=== PATIENT | male | born 1950 | race Caucasian/White ===

== ENCOUNTER 2018-01-16 13:22 | Outpatient (CLI) | payer MEDICARE | END 2018-01-16 13:23 | disposition home or self-care (01) | LOC: ULT 13:22 | PROVIDERS: ATTEND Family Medicine | DX: R06.01 Orthopnea (principal); I08.3 Combined rheumatic disorders of mitral, aortic and tricuspid valves | CPT/HCPCS: 93306 ==

== ENCOUNTER 2018-05-12 10:15 | Inpatient (IN) | payer MEDICARE ==
[~2018-05-12 10:15] MED LIST: Iopamidol-370 76% 500 ML 1 ML ONE
[2018-05-12] MEDS ORDERED: Furosemide 40 MG/4 ML VIAL ONE (10:30)
[2018-05-12 10:47] LABS: #Lymphocytes 0.4 thou/uL (1.20-3.40); #Monocytes 0.2 thou/uL (0.11-0.59); #Neutrophils 9.7 thou/uL (1.40-6.50); %Eosinophils 0.1 % (0.0-10.0); %Lymphocytes 3.4 % (21.0-51.0); %Monocytes 1.5 % (0.0-10.0); Hemoglobin 13.1 g/dL (14.0-18.0); Mean Corpuscular HGB CONC 32.6 g/dL (32.0-36.0); Mean Corpuscular Hemoglobin 27.8 pg (27.0-31.0); Mean Corpuscular Volume 85.5 fL (78.0-98.0); Platelet Count 260 thou/uL (130-400); RBC Distribution Width 13.3 % (11.5-14.5); White Blood Cell (WBC) Count 10.2 thou/uL (4.8-10.8)
[2018-05-12 11:09] LABS: ALT (SGPT) 31 U/L (8-55); AST (SGOT) 64 U/L (5-34); Albumin 4.1 g/dL (3.4-4.8); Alkaline Phosphatase 96 U/L (40-150); Anion Gap 11 mmol/L (10-20); BUN (Urea Nitrogen) 8 mg/dL (8.4-25.7); Bilirubin, Total 0.8 mg/dL (0.2-1.2); Calc. Creatinine Clearance 0 mL/min (70-130); Calcium 9.6 mg/dL (7.8-10.44); Carbon Dioxide 30 mmol/L (23-31); Chloride 79 mmol/L (98-107); Estimated GFR-MDRD Greater than 90; Globulin 3.4 g/dL (2.4-3.5); Glucose 125 mg/dL (80-115); Potassium 3.2 mmol/L (3.5-5.1); Protein, Total 7.5 g/dL (5.8-8.1)
[2018-05-12] MEDS ORDERED: Magnesium 2 GM/50 ML BAG (IN WATER) ONE (11:29)
--- NOTE | 2018-05-12 11:43 | CT ---
CTA CHEST WITH CONTRAST: Technique: Multiple contiguous axial images were obtained through the chest following pulmonary angio protocol. Multiplanar reconstruction and 3D post processing performed. Indications: Dyspnea. FINDINGS: Pulmonary arteries show adequate opacification. Motion artifact degrades the exam. There is no evidence of pulmonary embolus identified. There is cardiomegaly with vascular congestion. There is confluent infiltrate and/or atelectasis is b oth posterior lung bases. Images through the upper abdomen show several small calcified gallstones within the gallbladder lumen . IMPRESSION: 1. No evidence of pulmonary embolus. 2. Cardiomegaly with vascular congestion. Bibasilar confluent atelectasis and/or infiltrate. 3. Cholelithiasis is noted. POS: [facility]
[2018-05-12] MEDS ORDERED: Potassium Chloride 40 MEQ in Sodium Chloride 0.9% 250 ML 250 ML IVPB SCH (11:45)
--- NOTE | 2018-05-12 11:50 | RAD ---
EXAM: CHEST ONE VIEW PORTABLE: History: 67-year-old male with shortness of breath for several days. Feeling bad for one week. Comparison: 05-12-18 FINDINGS: There is cardiomegaly with probable small bilateral pleural effusions, poor inspiration, and some vas cular congestion. No significant change from 05-12-18 earlier study. IMPRESSION: Overall stable appearing cardiomegaly, poor inspiratory effort, bilateral small pleural effusions, bi lateral vascular congestion. Atherosclerosis of the aorta with ectasia. Depending upon concern, follo w up exam to include upright PA and lateral chest might be of benefit. POS: [facility]
[2018-05-12 11:53] LABS: Sodium 117 mmol/L (136-145)
[2018-05-12] MEDS ORDERED: Potassium Chloride 20 MEQ TAB ONE (13:18)
[2018-05-12] MEDS ORDERED: Dextrose 50% Abboject 50 ML SYRINGE SLOW IVP PRN (14:42)
[2018-05-12] MEDS ORDERED: Dextrose 5% in Water 1,000 ML IV PRN (14:42)
--- NOTE | 2018-05-12 14:53 | HP ---
CHIEF COMPLAINT: Shortness of breath. HISTORY OF PRESENT ILLNESS: The patient is a 67-year-old male, who presented today to the emergency room in [place] with complaints of shortness of breath. He had some workup done in [place] [facility], he was found to have hyponatremia and fluid overload with some signs of congestive heart failure. He was given IV Lasix and O2 and put on BiPAP and sent to the emergency room of [facility] in [place], where he was transitioned from BiPAP to nasal cannula to 4 L. Apparently, he had one time problem with breathing a few months ago, and his primary care physician, Dr. Hernandez from [place] sent here for echocardiogram done in this facility, but I could not find any evidence that this was done. PAST MEDICAL HISTORY: Positive for; 1. Diabetes. 2. Prostate cancer. PAST SURGICAL HISTORY: 1. Back surgery. 2. Left leg fracture and repair. MEDICATIONS: 1. Losartan/hydrochlorothiazide 100/25 once a day. 2. Amlodipine 10 mg once a day. 3. Pantoprazole 40 mg once a day. 4. Diclofenac 75 mg once a day. 5. Glimepiride 4 mg half tablet a day. 6. Simvastatin 80 mg at bedtime. 7. Citalopram 40 mg once a day. 8. Tamsulosin 0.4 mg two tablets at bedtime. FAMILY HISTORY: Mother had CHF and she at the age of 58, and father was 65 when he had massive heart attack. ALLERGIES: NONE. SOCIAL HISTORY: He does not have any history of cigarette smoking. He drinks alcohol beer occasionally. He does not use any illicit drugs. REVIEW OF SYSTEMS: Fourteen systems were reviewed and only symptoms mentioned in the HPI are positive and the rest is negative. He denies any chest pain. He has some cough. PHYSICAL EXAMINATION: VITAL SIGNS: Blood pressure is 131/79, pulse is 107, pulse oximetry is 98% on 4 L by nasal cannula, and respirations are 20. HEENT: His head is atraumatic and normocephalic. He is quite uncomfortable, sitting upright and changing position quite often, trying to find a better position. His eyes; pupils are responding to light properly. Conjunctivae are pinkish. Oral mucosa is moist. NECK: Supple. No lymphadenopathy. JVD 1+, similar bilaterally. LUNGS: Breath sounds diminished at both bases with crackles bilaterally. No wheezing. HEART: S1 and S2 are distant. No S3. No S4. ABDOMEN: Soft, obese, and nontender. There is a hernia in the midline in epigastric area, but it is not incarcerated. Bowel sounds are present. No organomegaly. EXTREMITIES: 2+ peripheral edema, similar bilaterally. He has an open wound on his great toe base with small drainage. NEUROLOGIC: He is alert and oriented x4. There are no any motor deficits. Cranial nerves are intact. LABORATORY DATA: Sodium of 119, potassium 3.5, chloride 78, BUN 7.4, and creatinine 0.7. Lactic acid less than 1.5. CK-MB 19.1 and troponin less than 0.010. White count of 11.22, hemoglobin 13.2, hematocrit 39.1, and platelet count is 235,000. DIAGNOSTIC DATA: Chest x-ray showed bilateral pleural effusions with some cardiomegaly and pulmonary vascular congestion EKG showed normal sinus rhythm, 89 beats per minute with no any specific ST-T wave changes. Poor progression of the QRS is noted and biphasic T-wave in V1 and V2 suggestive of some atrial enlargement. The CT angiogram was done by the [facility] Emergency Room doctor, which showed no evidence of pulmonary embolism. Cardiomegaly with vascular congestion, bibasilar confluent atelectasis and/or infiltrate. Also cholelithiasis is noted too. IMPRESSION: 1. Flash pulmonary edema. 2. Hyponatremia. 3. Hypokalemia. 4. Respiratory failure secondary to #1. 5. Diabetes mellitus. 6. History of prostate cancer, status post radiation approximately 6 years ago. 7. Great toe ulceration. Apparently, he had some workup done prior to this ulceration treatment and all system was patent, supplying enough blood to the area where the ulcer is. PLAN: Full admission to [facility]. Condition is guarded. Full code. IV fluids, Hep-Lock, and Lasix 40 mg IV push today at 2000, then 80 twice a day. Cardiology consultation with Dr. Worley and echocardiogram. We will keep his Joshua in since he has a hard time to urinate. He had high residuals twice already in the emergency room. We will replace his potassium. We will check his serial BMPs. I do not think he has some infectious process . We will do DVT prophylaxis with Lovenox subcu 40 mg and SCDs and PUD prophylaxis with H2 krista, and we will to do Accu-Cheks a.c. and at bedtime and use sliding scale for coverage. Job ID: [id number]
[2018-05-12] MEDS ORDERED: Morphine 2 MG/ML SYRINGE SLOW IVP SCH (16:00)
[2018-05-12 19:26] LABS: Anion Gap 14 mmol/L (10-20); Calc. Creatinine Clearance 148 mL/min (70-130); Calcium 9.9 mg/dL (7.8-10.44); Carbon Dioxide 30 mmol/L (23-31); Chloride 79 mmol/L (98-107); Estimated GFR-MDRD Greater than 90; Glucose 140 mg/dL (80-115); Potassium 3.8 mmol/L (3.5-5.1)
[2018-05-12 19:30] LABS: Sodium 119 mmol/L (136-145)
[2018-05-12] MEDS ORDERED: Furosemide 40 MG/4 ML VIAL SLOW IVP SCH (20:00)
[2018-05-12] MEDS: Tamsulosin HCl 0.4 MG CAP PO SCH (20:22)
[2018-05-12] MEDS: Simvastatin 40 MG TAB PO SCH (20:22)
[2018-05-12] MEDS: Famotidine 20 MG TAB PO SCH (20:22)
[2018-05-12] MEDS: Citalopram 20 MG TAB PO SCH (20:22)
[2018-05-12] MEDS: Glimepiride 4 MG TAB PO SCH (20:22)
[2018-05-12] MEDS: Diclofenac Sodium 25 mg Tablet PO SCH (21:15)
[2018-05-12 22:39] LABS: BUN (Urea Nitrogen) 9 mg/dL (8.4-25.7)
[2018-05-13 01:12] LABS: Actual Bicarbonate (HCO3a) 34.8 mEq/L (22-28); Base Excess (BEa) 8.3 mEq/L (-2.0 to +3.0); CO2 Tension 56.1 mmHg (35.0-45.0); Calcium, Ionized 1.19 mmol/L (1.12-1.30); Carboxyhemoglobin (COHb) 1.4 gm% (0.0-3.0); Hemoglobin (Hb) 13.7 g/dL (14.0-18.0); O2 Tension (PaO2) 83.3 mmHg (> 80.0); Potassium - ABG Lab 3.51 mmol/L (3.70-5.30); pH, Arterial 7.41 (7.35-7.45)
[2018-05-13 01:14] LABS: Puncture Site LRADIAL
[2018-05-13 01:15] LABS: ALV-art Gradient 131.775 (0-20)
--- NOTE | 2018-05-13 03:35 | PRG ---
DATE OF SERVICE: 05/13/2018 SUBJECTIVE: The patient was noted to have increased work of breathing and dyspnea The patient's nurse indicated the patient was sitting up on the side of the bed and his pressure got a little bit low in the 80s. She asked him to get back in bed and recline, and with that his blood pressure increased to 160. However, the patient became increasingly short of breath and tachypneic with respiratory rate in the 40s. Came to evaluate the patient, ordered ABG and a chest x-ray. On my arrival, the patient seems to be doing somewhat better. On my exam, the patient has diminished breath sounds throughout with very minimal rales at the bases, but no significant wheezing noted. Chest x-ray did not reveal substantial pulmonary edema based upon the quick view from the portable machine. His blood gas reveals pH of 7.41 , pCO2 of 56, pO2 of 83.3, bicarb 34.8. This was done on 10 L with Ventimask. In reviewing the patient's record, he did have a CT angiogram of the chest, which showed no PE, but some pulmonary edema. By my review, he also appeared to have significant cardiomegaly on that scan. His chest x-ray also shows what appears to be some cardiomegaly, possibly some left atrial enlargement. The patient gives history that he has used an inhaler in the past that he thought was helpful, although he has never been a smoker, had any significant occupational exposures that he is aware of. The patient has received significant diuretic dosing since he has been here and has responded fairly well to that. Therefore, at this point, I am going to go ahead and order nebulizer treatments for him given his diminished air exchange. He may need some additional diuretics. However, in reviewing his record, his previous echocardiogram revealed his EF was 55%, and there was no significant mention of substantial diastolic dysfunction, although that would be the likely source of heart failure at this time. Job ID: [id number] [facility]
[2018-05-13] MEDS ORDERED: Morphine 4 MG/ML VIAL SLOW IVP SCH (04:15)
[2018-05-13 04:23] LABS: Anion Gap 14 mmol/L (10-20); BUN (Urea Nitrogen) 12 mg/dL (8.4-25.7); Calc. Creatinine Clearance 151 mL/min (70-130); Calcium 9.6 mg/dL (7.8-10.44); Carbon Dioxide 31 mmol/L (23-31); Chloride 80 mmol/L (98-107); Estimated GFR-MDRD Greater than 90; Potassium 3.3 mmol/L (3.5-5.1); Sodium 122 mmol/L (136-145)
[2018-05-13 04:29] LABS: Glucose 48 mg/dL (80-115)
[2018-05-13] MEDS ORDERED: Furosemide 40 MG/4 ML VIAL SLOW IVP SCH (06:45)
[2018-05-13] MEDS ORDERED: Potassium Chloride 20 MEQ TAB PO SCH ×2 (08:00→10:30)
--- NOTE | 2018-05-13 08:32 | RAD ---
PORTABLE AP CHEST X-RAY: 05/13/2018 HISTORY: Increased work of breathing. Shortness of breath. COMPARISON: 05/12/2018 FINDINGS: There are patchy increased densities again seen at each lung base, which may be related to atelectasi s or possibly basilar infiltrates related to an infectious process. This is overall unchanged compar ed to the prior study. Small pleural effusions cannot be entirely excluded, but no pleural effusion was seen on a CTA of the chest from 05/12/2018. The cardiac silhouette is enlarged. The pulmonary v asculature is at the upper limits of normal but magnified by the shallow depth of inspiration and the portable technique. Vascular calcification is seen in the thoracic aorta. IMPRESSION: Stable chest. POS: [facility]
[2018-05-13] MEDS ORDERED: Losartan/Hydrochlorothiazide 100 mg/25 mg Tablet PO SCH (09:00)
[2018-05-13 10:02] LABS: #Lymphocytes 0.7 thou/uL (1.20-3.40); #Monocytes 1.4 thou/uL (0.11-0.59); #Neutrophils 8.1 thou/uL (1.40-6.50); %Basophils 0.2 % (0.0-1.0); %Eosinophils 0.3 % (0.0-10.0); %Lymphocytes 6.9 % (21.0-51.0); %Monocytes 13.4 % (0.0-10.0); %Neutrophils 79.3 % (42.0-75.0); Hemoglobin 12.9 g/dL (14.0-18.0); Mean Corpuscular Hemoglobin 28.3 pg (27.0-31.0); Mean Corpuscular Volume 85.6 fL (78.0-98.0); Mean Platelet Volume 6.9 fL (7.4-10.4); Platelet Count 292 thou/uL (130-400); RBC Distribution Width 13.5 % (11.5-14.5); Red Blood Cell (RBC) Count 4.57 mill/uL (4.70-6.10); White Blood Cell (WBC) Count 10.1 thou/uL (4.8-10.8)
[2018-05-13] MEDS: Diclofenac Sodium 25 mg Tablet PO SCH ×2 (10:02→20:25)
[2018-05-13] MEDS: Potassium Chloride 10 MEQ TAB PO SCH (10:03)
[2018-05-13] MEDS: Famotidine 20 MG TAB PO SCH ×2 (10:03→20:26)
[2018-05-13] MEDS: Amlodipine 10 MG TAB PO SCH (10:04)
[2018-05-13] MEDS: Ascorbic Acid 500 mg Chewable Tablet PO SCH (10:04)
[2018-05-13] MEDS: Enoxaparin Sodium 40 MG/0.4 ML SYRINGE SC SCH (10:05)
[2018-05-13] MEDS: Calcium Carbonate 600 MG TAB PO SCH (10:31)
[2018-05-13] MEDS: Losartan 25 MG TAB PO SCH (10:31)
[2018-05-13] MEDS ORDERED: Cefepime 1 GM in Sodium Chloride 0.9% 100 ML IVPB SCH (11:00)
--- NOTE | 2018-05-13 11:01 | PRG ---
DATE OF SERVICE: 05/13/2018 SUBJECTIVE: The patient is seen and examined at bedside. He became short of breath at night and in-house doctor was called, Dr. Rosas, who switched him from nasal cannula to Ventimask. He seems to be doing somewhat better than when I saw him yesterday in the emergency room. He urinates a lot. He ate his breakfast almost all. He feels much better, sitting up. OBJECTIVE: VITAL SIGNS: Blood pressure is 136/67, pulse is 85, temperature is 97.5, respiratory rate is 18, and O2 saturation is 96% on Venturi mask. HEENT: His head is atraumatic and normocephalic. Sclerae are nonicteric. Oral mucosa is moist. NECK: Supple. LUNGS: At both bases, breath sounds are diminished and crackles with rales bilaterally present. No wheezing. HEART: S1 and S2 normal. No S3. No S4. ABDOMEN: Soft, obese, and nontender. Bowel sounds are present. No organomegaly. EXTREMITIES: 1+ peripheral edema, similar bilaterally. NEUROLOGIC: He is alert and oriented x4. There are no any motor or sensory deficits present. Cranial nerves are intact. LABORATORY DATA: Labs showed sodium of 122, potassium 3.3, chloride 80, CO2 of 31, BUN 12, creatinine of 0.71, ranging from 98 to 153, calcium 9.6. Two sets of troponins within normal limits. ABGs showed pH of 7.41, pCO2 of 56.1, pO2 of 83.3. A-a gradient is 131. CBC is pending. IMPRESSION: 1. Hypoxemic hypercapnic respiratory failure secondary to bilateral infiltrates of unclear etiology. The patient has been treated as congestive heart failure. He has been covered with Rocephin for possible pneumonia. We will switch him to cefepime. We will continue his DuoNebs, and chaperon is going to see him today along with welt butter hand on-call. Echocardiogram was done. His BNP was normal yesterday. We will check his sedimentation rate, and he does not have much cough, he is just short of breath. 2. Hyponatremia is most likely related to lung issue. We will check his urine lytes, serum sodium, and urine osmolality. We will put him now on fluid restrictions at 1000 mL per 24 hours. 3. Diabetes mellitus, on sliding scale. 4. Hypokalemia. We will supplement that. 5. Great toe ulceration. Wound Care Team is consulted. 6. History of prostate cancer, status post radiation approximately 6 years ago. PLAN: As I mentioned above, chaperon and welt butter hand will see the patient today. I am going to cut back on his Lasix. I will start him on cefepime 1 g every 12 hours. We will supplement potassium. We will do fluid restriction 1000 mL per 24 hours. Continue DVT prophylaxis with Lovenox and SCDs, and PUD prophylaxis with H2 krista. Job ID: [id number]
[2018-05-13 12:50] LABS: Phosphorus 3.3 mg/dL (2.3-4.7)
[2018-05-13 13:13] LABS: Magnesium 1.9 mg/dL (1.6-2.6)
[2018-05-13] MEDS ORDERED: Furosemide 100 MG/10 ML VIAL SLOW IVP SCH (14:00)
[2018-05-13] MEDS ORDERED: Furosemide 20 MG/2 ML VIAL SLOW IVP SCH (14:00)
--- NOTE | 2018-05-13 14:15 | EKG ---
Test Reason : Blood Pressure : / mmHG Vent. Rate : 096 BPM Atrial Rate : 096 BPM P-R Int : 230 ms QRS Dur : 110 ms QT Int : 332 ms P-R-T Axes : 022 -39 006 degrees QTc Int : 419 ms Sinus rhythm with 1st degree A-V block with Premature atrial complexes Left axis deviation Abnormal ECG Confirmed by MICHELLE FUENTES DO ([id number]), editorial intern MICHI GALEANA ([id number]) on 05/13/2018 2:14:41 PM Referred By: Confirmed By:MICHELLE FUENTES DO
--- NOTE | 2018-05-13 15:08 | CON ---
DATE OF CONSULTATION: 05/13/2018 SERVICE: Pulmonary Medicine. REASON FOR CONSULTATION: CU patient. HISTORY OF PRESENT ILLNESS: The patient is a 67-year-old white male with past medical history significant for one month history of increasing weakness. A month ago, he was normal functioning. He could walk up a flight of steps, carry bags in from the grocery store. He demonstrated pretty good strength and was fully independent in all of his ADLs. Over the last one month, he has progressed to the point where he required a cane, then a walker. Over the last week, he has been essentially nonmobile without significant assistance from family members. Ultimately, over the last three days, things got abruptly worse. He had a little bit of a cough, but did not bring up any sputum. He denies any current fevers; chills; nausea; vomiting; hot, red, swollen joints; diarrhea; abdominal pain; or any previous history of these types of symptoms. In the emergency department, he got a CAT scan, which showed pneumonia. That being said, there were no other focalizing things that would help us understand why he would demonstrate this progressive weakness. PAST MEDICAL HISTORY: 1. Type 2 diabetes mellitus. 2. History of prostate cancer. PAST SURGICAL HISTORY: 1. Low back surgery. 2. Left leg fracture and subsequent repair. FAMILY HISTORY: Noncontributory. SOCIAL HISTORY: Negative for significant alcohol, tobacco, or illicit drug use. Apparently, he drinks beer occasionally, but is known to drink to excess. He has no exposure to chemicals, dust, asbestos, or tuberculosis. ALLERGIES: NO KNOWN DRUG ALLERGIES. MEDICATIONS: List of his inpatient medications was reviewed and heavily modified. I have consolidated some of his antibiotics to cover community-acquired organisms. Lasix has been interrupted. REVIEW OF SYSTEMS: General, head, ears, eyes, nose, throat, cardiovascular, respiratory, GI, , musculoskeletal, neurologic, and skin are negative except as mentioned in the HPI. PHYSICAL EXAMINATION: VITAL SIGNS: Afebrile for this hospital stay. Pulse 94, blood pressure 127/77, respirations 18, and saturation 94% on 4 L nasal cannula. Orthostatic vitals were positive for tilting. HEENT: Normocephalic and atraumatic. Sclerae are white. Conjunctivae are pink. Oral mucosa is moist without lesions. LUNGS: Decent air entry present. There is no prolongation of the expiratory phase. No wheezing or rhonchi present. Crackles are present bibasilarly. HEART: Normal rate regular. ABDOMEN: Soft. Nontender, and nondistended. Bowel sounds are positive. MUSCULOSKELETAL: No cyanosis or clubbing. No pitting in the bilateral lower extremities. NEUROLOGIC: Very subtle weakness is present in the left upper extremity, particularly with extension of the fingers. Rapidly alternating movements are abnormal in the lower extremities, but symmetric. Reflexes are normal throughout. Cranial nerves are also normal. LABORATORY DATA: Sodium 122 and improving, potassium 3.3, chloride 80, and bicarb 31. Basic metabolic profile is otherwise unremarkable. Calcium 9.6. Troponins are negative x3, BNP is unremarkable, liver function studies are also unremarkable. Serum osmolality is 255, quite low. Serum protein falls within normal limits, and the gap is normal. IMAGING DATA: 1. CT of the chest demonstrates bibasilar infiltrates with air bronchograms, consistent with bibasilar pneumonia. I truly do not see a significant evidence of volume overload. 2. His echocardiogram demonstrates a normal ejection fraction with 1/3 diastolic dysfunction. No significant valvular abnormalities were noted. ASSESSMENT: 1. Acute hypoxic respiratory failure. 2. Chronic hypercapnic respiratory failure. 3. Community-acquired pneumonia. 4. Progressive weakness, onset for roughly one month. 5. Hyponatremia, currently under investigation. DISCUSSION AND PLAN: I will repeat laboratories including CK, aldolase, and electrolytes in the morning. We will also check a triglyceride level. I do not think he is significantly volume overloaded at this point. I think that he likely came in with euvolemia. All of our electrolytes in the urine may be affected by the frequent doses of Lasix. These things may need to be repeated through time. The pneumonia is likely a symptom of the weakness and not the cause of his weakness. Pulmonary Critical Care will continue to follow along while the patient remains inhouse. I would like for him to stay in [facility] for an additional 24 hours. 70 minutes have been devoted to this patient in various activities. I personally reviewed all imaging studies and laboratory data noted within this document. For fifty percent of this time, I was interacting with the patient at the bedside or coordinating care with the care team. For the remainder of the time I was immediately available to the patient in the hospital unit. Job ID: [id number] [facility]
[2018-05-13 18:07] LABS: Potassium, Urine 18.6 mmol/L
[2018-05-13] MEDS: Citalopram 20 MG TAB PO SCH (20:25)
[2018-05-13] MEDS: Tamsulosin HCl 0.4 MG CAP PO SCH (20:25)
[2018-05-13] MEDS: Simvastatin 40 MG TAB PO SCH (20:26)
[2018-05-13] MEDS: Glimepiride 4 MG TAB PO SCH (20:26)
[2018-05-13] MEDS: Magnesium Oxide 400 MG TAB PO SCH (20:28)
--- NOTE | 2018-05-13 21:51 | CON ---
DATE OF CONSULTATION: 05/13/2018 REASON FOR CONSULTATION: Shortness of breath. HISTORY OF PRESENT ILLNESS: Mr. Vasquez is a pleasant 67-year-old white gentleman, who comes to the hospital for shortness of breath. He was seen at the [facility] for the same reason and found to be hyponatremic, thought to be volume overload, so he was given a dose of Lasix and transferred over to [facility] for further care. He eventually had to be placed on BiPAP secondary to shortness of breath, but after IV Lasix was given, he was transitioned to cannula at 4 L and doing much better. He denies any chest pain, tightness, or pressure. The shortness of breath has improved. He admits to increased lower extremity edema for the past few weeks. PAST MEDICAL HISTORY: 1. Type 2 diabetes. 2. Prostate cancer. SURGICAL HISTORY: 1. Back surgery. 2. Left leg fracture repair. MEDICATIONS: Outpatient medications include, 1. Losartan/hydrochlorothiazide 100/25 a day. 2. Amlodipine 10 mg a day. 3. Pantoprazole 40 mg a day. 4. Diclofenac. 5. Glimepiride 4 mg half tablet a day. 6. Simvastatin 80 mg at bedtime. 7. Citalopram. 8. Tamsulosin. ALLERGIES: NO KNOWN DRUG ALLERGIES. FAMILY HISTORY: Mother with heart failure, at 58. Father of a heart attack at 65. SOCIAL HISTORY: Occasional alcohol use, beers mostly. No tobacco or drugs. REVIEW OF SYSTEMS: A 12-point review of systems was done and was found to be negative other than stated in the history of present illness. PHYSICAL EXAMINATION: VITAL SIGNS: Temperature 97.0, pulse 83, respiratory rate 18, sats 94% on 4 L, blood pressure 105/69. GENERAL: Awake, alert, and oriented x3, in no distress. HEENT: Normocephalic, atraumatic. NECK: Supple. LUNGS: Have reduced breath sounds bilaterally. CARDIOVASCULAR: S1, S2. No S3 or S4. There is a grade 2/6 systolic murmur in the left sternal border. ABDOMEN: Prominent. EXTREMITIES: 2+ edema. SKIN: Warm and dry. LABORATORY DATA: Laboratory work was reviewed. CT of the chest showed no evidence of pulmonary embolus. Cardiomegaly with vascular congestion, bibasilar confluent atelectasis or infiltrate, cholelithiasis. Echocardiogram revealed EF of 50% to 55% with grade 1/3 diastolic dysfunction, mildly dilated aortic root. His right ventricle seems to be a little bit dilated with normal RV systolic function. ASSESSMENT AND PLAN: 1. Acute on chronic diastolic heart failure. 2. Right ventricular dysfunction. 3. Most likely severe sleep apnea. PLAN: 1. Would continue IV diuresis for now. He tells me he has had a lot more early satiety in the last few weeks, and he has noticed an increase in his abdominal girth. This would go with his PA pressures and his RV dilatation on echo, which is likely related to severe sleep apnea. Once he gets a little drier helper, would probably screen for sleep apnea as an outpatient with sleep study. 2. We will need further evaluation as an outpatient for ischemia. 3. We will follow. Job ID: [id number]
[2018-05-14 04:30] LABS: #Eosinphils 0.1 thou/uL (0.0-0.7); #Lymphocytes 0.8 thou/uL (1.20-3.40); #Monocytes 1.4 thou/uL (0.11-0.59); #Neutrophils 8.3 thou/uL (1.40-6.50); %Basophils 0.3 % (0.0-1.0); %Eosinophils 0.6 % (0.0-10.0); %Lymphocytes 7.9 % (21.0-51.0); %Monocytes 13.5 % (0.0-10.0); %Neutrophils 77.7 % (42.0-75.0); Hemoglobin 12.6 g/dL (14.0-18.0); Mean Corpuscular HGB CONC 33.1 g/dL (32.0-36.0); Mean Corpuscular Volume 87.6 fL (78.0-98.0); Mean Platelet Volume 6.6 fL (7.4-10.4); Platelet Count 259 thou/uL (130-400); RBC Distribution Width 13.6 % (11.5-14.5); Red Blood Cell (RBC) Count 4.34 mill/uL (4.70-6.10); White Blood Cell (WBC) Count 10.7 thou/uL (4.8-10.8)
[2018-05-14 04:52] LABS: Anion Gap 12 mmol/L (10-20); BUN (Urea Nitrogen) 17 mg/dL (8.4-25.7); Calc. Creatinine Clearance 154 mL/min (70-130); Calcium 9.7 mg/dL (7.8-10.44); Carbon Dioxide 34 mmol/L (23-31); Chloride 82 mmol/L (98-107); Estimated GFR-MDRD Greater than 90; Potassium 3.9 mmol/L (3.5-5.1); Sodium 124 mmol/L (136-145)
[2018-05-14 04:54] LABS: Glucose 44 mg/dL (80-115)
[2018-05-14] MEDS ORDERED: Furosemide 40 MG/4 ML VIAL SLOW IVP SCH (09:00)
[2018-05-14] MEDS: Ascorbic Acid 500 mg Chewable Tablet PO SCH (09:05)
[2018-05-14] MEDS: Potassium Chloride 10 MEQ TAB PO SCH (09:05)
[2018-05-14] MEDS: Amlodipine 10 MG TAB PO SCH (09:05)
[2018-05-14] MEDS: Famotidine 20 MG TAB PO SCH ×2 (09:06→21:05)
[2018-05-14] MEDS: Diclofenac Sodium 25 mg Tablet PO SCH (09:06)
[2018-05-14] MEDS: Enoxaparin Sodium 40 MG/0.4 ML SYRINGE SC SCH (09:06)
[2018-05-14] MEDS: Calcium Carbonate 600 MG TAB PO SCH (09:06)
[2018-05-14] MEDS: Losartan 25 MG TAB PO SCH (09:07)
[2018-05-14] MEDS: Magnesium Oxide 400 MG TAB PO SCH ×2 (09:07→21:06)
[2018-05-14 13:19] LABS: Anion Gap 12 mmol/L (10-20); BUN (Urea Nitrogen) 18 mg/dL (8.4-25.7); Calc. Creatinine Clearance 128 mL/min (70-130); Calcium 9.7 mg/dL (7.8-10.44); Carbon Dioxide 34 mmol/L (23-31); Chloride 82 mmol/L (98-107); Estimated GFR-MDRD Greater than 90; Glucose 94 mg/dL (80-115); Potassium 4.1 mmol/L (3.5-5.1); Sodium 124 mmol/L (136-145)
--- NOTE | 2018-05-14 14:21 | PRG ---
DATE OF SERVICE: 05/14/2018 SERVICE: Pulmonary Medicine. INTERVAL HISTORY: The patient is doing a little better from respiratory standpoint. He is tolerating low oxygen levels. Additionally, he has improving strength. He is certainly not back to baseline at this point. There has been no interval change to his condition. There were no overnight events. PHYSICAL EXAMINATION: VITAL SIGNS: Afebrile, pulse 84, blood pressure 100/57, respirations 18, and saturation 98% on 2 L nasal cannula. GENERAL: The patient is awake, alert, in no apparent distress. LUNGS: Decent air entry. There is no prolonged expiratory phase or wheezing appreciated. Dependent crackles are noted. HEART: Normal rate, regular. ABDOMEN: Soft, nontender, and nondistended. Bowel sounds are positive. MUSCULOSKELETAL: No cyanosis or clubbing. No pitting in the bilateral lower extremities. NEUROLOGIC: Grossly nonfocal. LABORATORY DATA: Sodium 124; bicarb 34, which has significantly increased; and chloride 82. Basic metabolic profile is otherwise unremarkable. His glucose was a little low this morning at 44. Triglycerides fell within the normal limits, and CK was dramatically elevated at 1300. Urine osmolality is 300. Serum osmolality 255. IMAGING DATA: Echocardiogram demonstrates minimal diastolic dysfunction and minimal right ventricular dysfunction. ASSESSMENT: 1. Acute hypoxic respiratory failure, improving. 2. Community-acquired pneumonia. 3. Weakness, progressing over a period of 1 month. 4. Hyponatremia, currently under investigation. 5. Abnormal CK with normal troponin. DISCUSSION AND PLAN: I will repeat the CK tomorrow morning. If it is not dropping, we may need to look into whether or not myopathy could be existing here. At this point, he is stable for transition out of the ICU to the medical unit. Antibiotics directed at lung issues can be discontinued after a total duration of 7 days. Pulmonary will continue to follow for now. Job ID: [id number]
--- NOTE | 2018-05-14 16:36 | PDOC.PN ---
- Subjective Encounter Start Date: 05/14/18 Encounter Start Time: 10:45 Mr. Vasquez was seen today in follow-up of Respiratory failure, and hyponatremia. He says he is breathing better. He is still somewhat short of breath when he lays flat. - Objective Resuscitation Status - Order Detail: 05/12/18 13:02 Resuscitation Status Routine Resuscitation Status: FULL: Full Resuscitation MAR Reviewed: Yes Vital Signs & Weight: Vital Signs (12 hours) Temp Pulse Resp BP Pulse Ox 05/14/18 16:00 100 05/14/18 15:42 97.7 F 97 18 129/75 93 L 05/14/18 12:00 97.9 F 84 18 100/57 L 98 05/14/18 09:05 90 05/14/18 08:00 94 L 05/14/18 07:31 97.6 F 90 25 H 114/62 94 L Weight Admit Weight 229 lb 4.492 oz Weight 222 lb 11.2 oz I&O: 05/13/18 05/14/18 05/15/18 06:59 06:59 06:59 Intake Total 1080 820 Output Total 2400 1150 Balance -1320 -330 Result Diagrams: 05/14/18 04:13 05/14/18 12:47 Additional Labs: Accuchecks 05/14/18 05/14/18 05/13/18 10:34 05:33 20:14 POC Glucose 91 118 H 93 05/13/18 17:16 POC Glucose 130 H Phys Exam - Physical Examination HEENT: PERRLA, sclera anicteric Respiratory: no wheezing, no rales, no rhonchi + coarse breath sounds bilaterally, Cardiovascular: RRR, no significant murmur, no rub Gastrointestinal: soft, non-tender, no distention, positive bowel sounds Musculoskeletal: pulses present, edema present trace pedal edema bilaterally Neurological: non-focal, moves all 4 limbs Dx/Plan (1) Acute respiratory failure with hypoxia Code(s): J96.01 - ACUTE RESPIRATORY FAILURE WITH HYPOXIA Status: Acute (2) Hyponatremia Code(s): E87.1 - HYPO-OSMOLALITY AND HYPONATREMIA Status: Acute (3) Acute on chronic diastolic heart failure Code(s): I50.33 - ACUTE ON CHRONIC DIASTOLIC (CONGESTIVE) HEART FAILURE Status : Acute (4) Diabetes mellitus type 2 in obese Code(s): E11.69 - TYPE 2 DIABETES MELLITUS WITH OTHER SPECIFIED COMPLICATION; E66.9 - OBESITY, UNSPECIFIED Status: Acute - Plan * .Acute respiratory failure with hypoxemia- improving- likely a result of volume overload, and possible pneumonia * Hyponatremia- Etiology is unclear- urine sodium likely effected by Lasix- Will consult Nephrology to aid in the management * DM- blood glucose is stable * Acute on chronic diastolic heart failure- compensated *
[2018-05-14 18:16] LABS: Anion Gap 11 mmol/L (10-20); BUN (Urea Nitrogen) 19 mg/dL (8.4-25.7); Calc. Creatinine Clearance 125 mL/min (70-130); Calcium 9.7 mg/dL (7.8-10.44); Carbon Dioxide 34 mmol/L (23-31); Chloride 82 mmol/L (98-107); Estimated GFR-MDRD Greater than 90; Glucose 121 mg/dL (80-115); Potassium 4.2 mmol/L (3.5-5.1); Sodium 123 mmol/L (136-145)
--- NOTE | 2018-05-14 21:04 | PDOC.CTH ---
Cardiology Progress Note - Subjective No new issues. Breathing back to baseline. - Objective Vital Signs Temp Pulse Resp BP Pulse Ox 05/14/18 19:45 98.2 F 92 20 122/75 97 05/14/18 18:30 98.1 F 99 22 H 102/68 93 L 05/14/18 16:00 100 05/14/18 15:42 97.7 F 97 18 129/75 93 L 05/14/18 12:00 97.9 F 84 18 100/57 L 98 05/14/18 09:05 90 Admit Weight 229 lb 4.492 oz Weight 222 lb 11.2 oz 05/13/18 05/14/18 05/15/18 06:59 06:59 06:59 Intake Total 1080 820 650 Output Total 2400 1150 550 Balance -1320 -330 100 - Physical Examination General/Neuro: alert & oriented x3, NAD Neck: no JVD present Lungs: unlabored respirations Heart: RRR Abdomen: NT/ND Extremities: + edema B (trace) - Telemetry Telemetry Rhythm: NSR - Labs Result Diagrams: 05/14/18 04:13 05/14/18 17:50 Troponin/CKMB Troponin I Less than 0.010 ng/mL (< 0.028) 05/12/18 16:28 - Assessment/Plan 1. Pneumonia 2. Diastolic heart failure, mild and resolved. 3. Hyponatremia. PLAN: - Would hold any further diuresis. - Continue other meds.
[2018-05-14] MEDS: Tamsulosin HCl 0.4 MG CAP PO SCH (21:05)
[2018-05-14] MEDS: Simvastatin 40 MG TAB PO SCH (21:06)
[2018-05-14] MEDS: Citalopram 20 MG TAB PO SCH (21:07)
--- NOTE | 2018-05-14 23:01 | CON ---
DATE OF CONSULTATION: NEPHROLOGY CONSULTATION REASON FOR CONSULTATION: Hyponatremia. HISTORY OF PRESENT ILLNESS: This is a very pleasant 67-year-old gentleman, being admitted for shortness of breath with history of diabetes mellitus. His sodium was 117 on admission on May 12, which improved to 124 today, so I was consulted. The patient denies no headache, numbness, tingling, or weakness. The patient is drinking freely. PAST MEDICAL HISTORY: Diabetes mellitus, hypertension, back surgery, history of GERD, history of NSAID use. MEDICATIONS: Home medication list reviewed. Hospital medication list reviewed. ALLERGIES: REVIEWED. REVIEW OF SYSTEMS: A 15-point review of systems was performed and was negative except for positives noted above. NECK: No swelling or lumps. NOSE: No epistaxis or discharge. EYES: No diplopia or pain. MUSCULOSKELETAL: No joint pain. NEUROPSYCHIATRIC SYSTEMS: No suicidal ideation. No ideation. SKIN: Denies any rash or ulcer. CONSTITUTIONAL: No fever or chills. PHYSICAL EXAMINATION: GENERAL: The patient is awake, alert, in no acute distress. VITAL SIGNS: Afebrile, pulse 77, breathing 16, and blood pressure 129/75. GENERAL APPEARANCE AND MENTAL STATUS: Fair. HEAD/NECK: Normocephalic. Atraumatic. EYES: EOMI. No deformity. EARS: Clear. No ulcers. NOSE: Intact. No lesions. MOUTH: Clear. No discharge. THROAT: Clear. No exudate. LUNGS: Clear. No crackles. CARDIAC: S1, S2. No rub. ABDOMEN: Benign. Bowel sounds positive. GENITALIA/RECTUM: Joshua absent. BACK/EXTREMITIES: Edema 0+. NEUROLOGICAL: Alert and motor intact. LABORATORY DATA: Labs show sodium 124, serum osmolality is 255, urine osmolality was 300. ASSESSMENT: 1. 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 We would recommend 800 mL fluid restriction and follow sodium closely. 2. Hypertension, stable. 3. Anemia, stable. 4. Medications based on glomerular filtration rate are appropriate. 5. No indication for hypotonic saline. Job ID: [id number]
[2018-05-14] MEDS: Glimepiride 4 MG TAB PO SCH (23:08)
[2018-05-15] MEDS ORDERED: Ibuprofen 600 MG TAB PO PRN ×2 (04:50→21:30)
[2018-05-15 07:25] LABS: #Eosinphils 0.2 thou/uL (0.0-0.7); #Lymphocytes 0.9 thou/uL (1.20-3.40); #Monocytes 1.2 thou/uL (0.11-0.59); #Neutrophils 6.6 thou/uL (1.40-6.50); %Basophils 0.4 % (0.0-1.0); %Eosinophils 1.7 % (0.0-10.0); %Lymphocytes 10.4 % (21.0-51.0); %Monocytes 13.8 % (0.0-10.0); %Neutrophils 73.7 % (42.0-75.0); Hemoglobin 11.5 g/dL (14.0-18.0); Mean Corpuscular HGB CONC 33.4 g/dL (32.0-36.0); Mean Corpuscular Hemoglobin 29.4 pg (27.0-31.0); Mean Corpuscular Volume 87.8 fL (78.0-98.0); Mean Platelet Volume 7.2 fL (7.4-10.4); Platelet Count 248 thou/uL (130-400); RBC Distribution Width 13.3 % (11.5-14.5); Red Blood Cell (RBC) Count 3.92 mill/uL (4.70-6.10); White Blood Cell (WBC) Count 8.9 thou/uL (4.8-10.8)
[2018-05-15 07:44] LABS: Anion Gap 12 mmol/L (10-20); BUN (Urea Nitrogen) 23 mg/dL (8.4-25.7); CK (CPK) 751 U/L (30-200); Calc. Creatinine Clearance 125 mL/min (70-130); Calcium 9.9 mg/dL (7.8-10.44); Carbon Dioxide 36 mmol/L (23-31); Chloride 83 mmol/L (98-107); Estimated GFR-MDRD Greater than 90; Glucose 115 mg/dL (80-115); Potassium 4.7 mmol/L (3.5-5.1); Sodium 126 mmol/L (136-145)
--- NOTE | 2018-05-15 08:19 | PDOC.CTH ---
Cardiology Progress Note - Subjective No new issues. Still weak both legs. - Objective Vital Signs Temp Pulse Resp BP BP Pulse Ox 05/15/18 07:43 98.2 F 95 18 105/67 97 05/15/18 04:00 98 F 82 22 H 121/63 93 L 05/15/18 00:00 98.2 F 91 22 H 113/61 96 05/14/18 21:00 98.3 F 92 22 H 151/83 H 92 L Admit Weight 229 lb 4.492 oz Weight 222 lb 11.2 oz 05/14/18 05/15/18 05/16/18 06:59 06:59 06:59 Intake Total 820 650 Output Total 1150 850 Balance -330 -200 - Physical Examination General/Neuro: alert & oriented x3, NAD Neck: no JVD present Lungs: CTA, unlabored respirations Heart: RRR Abdomen: NT/ND Extremities: + edema B (trace) - Labs Result Diagrams: 05/15/18 06:41 05/15/18 06:41 Troponin/CKMB Troponin I Less than 0.010 ng/mL (< 0.028) 05/12/18 16:28 - Assessment/Plan 1. Pneumonia 2. Diastolic heart failure, mild and resolved. 3. Hyponatremia. PLAN: - Continue to hold diuresis. - CV stable, no new recs. - Will sign off. - Please call with any questioned. - Follow up in the office in 1 month.
[2018-05-15] MEDS: Ascorbic Acid 500 mg Chewable Tablet PO SCH (09:16)
[2018-05-15] MEDS: Losartan 25 MG TAB PO SCH (09:16)
[2018-05-15] MEDS: Famotidine 20 MG TAB PO SCH (09:16)
[2018-05-15] MEDS: Amlodipine 10 MG TAB PO SCH (09:17)
[2018-05-15] MEDS: Magnesium Oxide 400 MG TAB PO SCH ×2 (09:18→21:08)
[2018-05-15] MEDS: Enoxaparin Sodium 40 MG/0.4 ML SYRINGE SC SCH (09:18)
[2018-05-15] MEDS: Calcium Carbonate 600 MG TAB PO SCH (09:18)
--- NOTE | 2018-05-15 12:24 | PDOC.PN ---
- Subjective Encounter Start Date: 05/15/18 Encounter Start Time: 12:22 Mr. Vasquez was seen today in follow-up of acute respiratory and hyponatremia. He says he is breathing better today. He still feels very weak, and says he has had some weakness on his left side for a few weeks. - Objective Resuscitation Status - Order Detail: 05/12/18 13:02 Resuscitation Status Routine Resuscitation Status: FULL: Full Resuscitation MAR Reviewed: Yes Vital Signs & Weight: Vital Signs (12 hours) Temp Pulse Resp BP BP BP Pulse Ox 05/15/18 11:19 97.5 F L 88 18 116/73 98 05/15/18 09:35 97 05/15/18 09:17 95 105/67 05/15/18 07:43 98.2 F 95 18 105/67 97 05/15/18 04:00 98 F 82 22 H 121/63 93 L Weight Admit Weight 229 lb 4.492 oz Weight 222 lb 11.2 oz I&O: 05/14/18 05/15/18 05/16/18 06:59 06:59 06:59 Intake Total 820 650 Output Total 1150 850 Balance -330 -200 Result Diagrams: 05/15/18 06:41 05/15/18 06:41 Additional Labs: Accuchecks 05/15/18 05/15/18 05/14/18 11:21 05:25 22:02 POC Glucose 98 66 L 137 H 05/14/18 16:51 POC Glucose 65 L Phys Exam - Physical Examination HEENT: PERRLA Respiratory: no wheezing, no rales, no rhonchi, clear to auscultation bilateral Cardiovascular: RRR, no significant murmur, no rub Gastrointestinal: soft, non-tender, no distention, positive bowel sounds Musculoskeletal: pulses present, edema present trace pedal edema + weakness against resistance in both the left upper and lower extremity Unable to abduct the arm above 30 degrees, decreased core manager strength Dx/Plan (1) Acute respiratory failure with hypoxia Code(s): J96.01 - ACUTE RESPIRATORY FAILURE WITH HYPOXIA Status: Acute (2) Hyponatremia Code(s): E87.1 - HYPO-OSMOLALITY AND HYPONATREMIA Status: Acute (3) Acute on chronic diastolic heart failure Code(s): I50.33 - ACUTE ON CHRONIC DIASTOLIC (CONGESTIVE) HEART FAILURE Status : Acute (4) Diabetes mellitus type 2 in obese Code(s): E11.69 - TYPE 2 DIABETES MELLITUS WITH OTHER SPECIFIED COMPLICATION; E66.9 - OBESITY, UNSPECIFIED Status: Acute (5) Progressive focal motor weakness Code(s): R53.1 - WEAKNESS Status: Acute - Plan * Acute respiratory failure- improved after diureses. * Hyponatremia- improved- continue fluid restriction * DM- blood glucose is stable * Progressive weakness- patient notes weakness over the past month. He notes it more on his left lower extremity. He also notes left upper extremity weakness, but relates this to a fall he had about a month ago as well. He did not seek medical attention at that time. Discussed with Dr. Watkins. Agree with Neurology consult. Will X-ray the shoulder given the recent fall. * Patient would like to go to the Swing bed in [place] due to his weakness
--- NOTE | 2018-05-15 13:26 | PRG ---
DATE OF SERVICE: 05/15/2018 SERVICE: Pulmonary Medicine. INTERVAL HISTORY: The patient is doing really well from respiratory standpoint. He remains weak. Otherwise, there has been no interval change to his condition. He is not coughing or bringing up any sputum. OBJECTIVE: VITAL SIGNS: Afebrile. Pulse 88, blood pressure 116/73, respirations 18, and saturation 98% on 2 L nasal cannula. GENERAL: The patient is awake and alert, in no apparent distress. LUNGS: Excellent air entry. No prolonged expiratory phase, wheezing, rhonchi, or crackles are present. HEART: Normal rate, regular. ABDOMEN: Soft, nontender, and nondistended. Bowel sounds are positive. MUSCULOSKELETAL: No cyanosis or clubbing. No pitting in the bilateral lower extremities. NEUROLOGIC: Grossly nonfocal. LABORATORY DATA: WBC 8.9, hemoglobin 11.5, and platelets 248,000. Sodium 126 and is improving, chloride 83, and bicarb 36. Basic metabolic profile is otherwise unremarkable. CK is actually improved fairly dramatically at 751. ASSESSMENT: 1. Acute hypoxic respiratory failure, resolved. 2. Community-acquired pneumonia. 3. Weakness, progressing over a period of 1 month. 4. Hyponatremia, under investigation. 5. Abnormal CK with normal troponin. DISCUSSION AND PLAN: We have an KIN and rheumatoid factor that are currently pending. From a purely respiratory standpoint, the patient is stable for transition out of the hospital. That being said, he has persistent weakness. It may be associated with the hyponatremia, but the CK is elevated and I do not have a good explanation for this. As such, we will put a Neurology consultation and will work the patient up for other causes of weakness. At this point, I will sign off. Please call with additional questions or concerns moving forward. He will need a repeat chest x-ray in 6 weeks in the outpatient setting to make certain the infiltrate resolves. Job ID: [id number]
--- NOTE | 2018-05-15 14:46 | RAD ---
LEFT SHOULDER THREE VIEWS: HISTORY: A 67-year-old male with a history of fall. Unable to lift arm well. FINDINGS: Degenerative changes of the AC joint and glenohumeral joint. No fracture, dislocation, or other acut e process. IMPRESSION: No acute process. Stable from 05/12/2018. POS: [facility]
[2018-05-15 15:05] LABS: ANA Symphony (Qualitative) Negative (Negative); ANA Symphony (Quantitative) 0.1 Ratio (< 0.7 Negative); EliA RAS New Method **** NEW METHOD ****; Rheumatoid Factor IgM Antibody 0.6 IU/mL (<3.5 Negative)
[2018-05-15 18:20] LABS: Anion Gap 10 mmol/L (10-20); BUN (Urea Nitrogen) 24 mg/dL (8.4-25.7); Calc. Creatinine Clearance 124 mL/min (70-130); Calcium 9.8 mg/dL (7.8-10.44); Carbon Dioxide 36 mmol/L (23-31); Chloride 83 mmol/L (98-107); Estimated GFR-MDRD Greater than 90; Glucose 159 mg/dL (80-115); Potassium 4.3 mmol/L (3.5-5.1); Sodium 125 mmol/L (136-145)
--- NOTE | 2018-05-15 18:29 | PRG ---
DATE OF SERVICE: 05/15/2018 SUBJECTIVE: A 67-year-old male, being seen for hyponatremia. The patient denies any nausea, vomiting, or chest pain. OBJECTIVE: GENERAL: The patient is awake, alert, in no acute distress. VITAL SIGNS: Afebrile, pulse 89, breathing 16, blood pressure 122/74. GENERAL APPEARANCE AND MENTAL STATUS: Fair. HEAD/NECK: Normocephalic. Atraumatic. EYES: EOMI. No deformity. EARS: Clear. No ulcers. NOSE: Intact. No lesions. MOUTH: Clear. No discharge. THROAT: Clear. No exudate. LUNGS: Clear. No crackles. CARDIAC: S1, S2. No rub. ABDOMEN: Benign. Bowel sounds positive. GENITALIA/RECTUM: Joshua absent. BACK/EXTREMITIES: Edema 0+. NEUROLOGICAL: Alert and motor intact. LABORATORY DATA: Creatinine 0.8. Sodium 126. ASSESSMENT AND PLAN: 1. Hyponatremia, improved. 2. Hypertension, stable. 3. Anemia, stable. 4. Medication based on glomerular filtration rate are appropriate. Job ID: [id number]
[2018-05-15] MEDS: Citalopram 20 MG TAB PO SCH (21:08)
[2018-05-15] MEDS: Tamsulosin HCl 0.4 MG CAP PO SCH (21:08)
[2018-05-15] MEDS: Glimepiride 4 MG TAB PO SCH (21:09)
--- NOTE | 2018-05-16 00:12 | CON ---
DATE OF CONSULTATION: 05/15/2018 TYPE OF CONSULTATION: Neurology. CONSULTING PHYSICIAN: Hospital Service. IMPRESSION: Diffuse weakness suggestive of a myopathy given his elevated CPK of 751. This is a bit lower than I would have expected for inflammatory myopathy. 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 PLAN: 1. Muscle biopsy. 2. Sedimentation rate, acetylcholine receptor antibody, and ANCA. HISTORY OF PRESENT ILLNESS: Mr. Vasquez is a 67-year-old man, who was admitted with shortness of breath. He was evaluated by both Pulmonary Medicine and Cardiology. He had a bit of diastolic dysfunction, but his ejection fraction is in the 50% to 55% range. CPK was noted to be 751. He reports that he has had some muscle weakness primarily on the left side with some pain involving the deltoid and calf for the last month. He has been on statin for many years. No other changes have been made. He has gotten progressively weaker and started dragging his left foot. There is no associated tingling or numbness in the extremities. He denies any slurred speech, difficulty chewing, difficulty swallowing, double vision or ptosis. He was admitted for treatment of his shortness of breath. Dr. Watkins noted that he was diffusely weak and ordered Neurology consultation. PAST MEDICAL HISTORY: Hypertension, hyperlipidemia, diabetes, BPH, diastolic dysfunction. ALLERGIES: NONE. SOCIAL HISTORY: He is . He does not smoke or drink. He lives in [place]. MEDICATIONS: List was reviewed. FAMILY HISTORY: Noncontributory. REVIEW OF SYSTEMS: No headache, nausea, vomiting, vertigo, lateralized numbness , slurred speech, or chest pain. PHYSICAL EXAMINATION: GENERAL: He is an overweight, middle-aged man, in no acute distress. VITAL SIGNS: Blood pressure 122/74, pulse 89, respirations 18, temperature 98.0. HEENT: Pupils equal and reactive. Conjunctivae clear. Oropharynx clear. Normocephalic and atraumatic. NECK: Supple. No lymphadenopathy. EXTREMITIES: No cyanosis. NEUROLOGIC: He is alert and appropriate. Speech is fluent and clear. Cranial nerves 2 through 12 were intact. There was no neck weakness noted. Motor exam showed significant weakness both proximally and distally in the upper and lower extremities, it is a bit worse on the left. primarily in the range of about 4-/5 strength. Sensation was intact to touch. He could stand independently. Cerebellar testing showed normal fufiuv-[id number]-[id number] movements. SUMMARY: This is a 67-year-old man with diffuse weakness over the last month with some muscle discomfort suggestive of a myopathy given his elevated CPK. Further evaluation with biopsy and lab work would be helpful given his diabetes. I would not start him on steroids until I have some definitive proof that there is an inflammatory component. If it is a statin myopathy, it could take quite a bit of time to recover. Job ID: [id number] [facility]
[2018-05-16 06:36] LABS: BUN (Urea Nitrogen) 27 mg/dL (8.4-25.7); CK (CPK) 388 U/L (30-200); Calc. Creatinine Clearance 131 mL/min (70-130); Estimated GFR-MDRD Greater than 90; Glucose 109 mg/dL (80-115)
[2018-05-16 06:45] LABS: Anion Gap 12 mmol/L (10-20); Carbon Dioxide 36 mmol/L (23-31); Chloride 85 mmol/L (98-107); Potassium 4.4 mmol/L (3.5-5.1); Sodium 129 mmol/L (136-145)
[2018-05-16] MEDS: Calcium Carbonate 600 MG TAB PO SCH (09:54)
[2018-05-16] MEDS: Losartan 25 MG TAB PO SCH (09:54)
[2018-05-16] MEDS: Amlodipine 10 MG TAB PO SCH (09:54)
[2018-05-16] MEDS: Magnesium Oxide 400 MG TAB PO SCH ×2 (09:54→20:23)
[2018-05-16] MEDS: Ascorbic Acid 500 mg Chewable Tablet PO SCH (09:55)
[2018-05-16] MEDS: Enoxaparin Sodium 40 MG/0.4 ML SYRINGE SC SCH (09:55)
--- NOTE | 2018-05-16 12:47 | PDOC.PN ---
- Subjective Encounter Start Date: 05/16/18 Encounter Start Time: 11:00 - Objective Resuscitation Status - Order Detail: 05/12/18 13:02 Resuscitation Status Routine Resuscitation Status: FULL: Full Resuscitation Vital Signs & Weight: Vital Signs (12 hours) Temp Pulse Resp BP BP BP Pulse Ox 05/16/18 09:54 87 124/71 05/16/18 08:38 97.9 F 87 20 124/71 95 05/16/18 04:00 98.3 F 92 22 H 119/65 97 Weight Admit Weight 229 lb 4.492 oz Weight 222 lb 11.2 oz I&O: 05/15/18 05/16/18 05/17/18 06:59 06:59 06:59 Intake Total 650 830 Output Total 850 1010 Balance -200 -180 Result Diagrams: 05/15/18 06:41 05/16/18 05:45 Additional Labs: Accuchecks 05/16/18 05/16/18 05/15/18 11:35 05:43 20:55 POC Glucose 154 H 115 H 183 H 05/15/18 16:20 POC Glucose 190 H Phys Exam - Physical Examination Constitutional: NAD HEENT: sclera anicteric Neck: no JVD Respiratory: clear to auscultation bilateral Cardiovascular: RRR Gastrointestinal: soft Musculoskeletal: no edema Dx/Plan (1) Acute on chronic diastolic heart failure Code(s): I50.33 - ACUTE ON CHRONIC DIASTOLIC (CONGESTIVE) HEART FAILURE Status : Acute Comment: improving.. (2) Acute respiratory failure with hypoxia Code(s): J96.01 - ACUTE RESPIRATORY FAILURE WITH HYPOXIA Status: Acute Comment: improving.. (3) Diabetes mellitus type 2 in obese Code(s): E11.69 - TYPE 2 DIABETES MELLITUS WITH OTHER SPECIFIED COMPLICATION; E66.9 - OBESITY, UNSPECIFIED Status: Acute Comment: BS satisfactory. (4) Hyponatremia Code(s): E87.1 - HYPO-OSMOLALITY AND HYPONATREMIA Status: Acute Comment: Improving.... Continue fluid restriction. (5) Progressive focal motor weakness Code(s): R53.1 - WEAKNESS Status: Acute - Plan -: Continue current management.. * .
--- NOTE | 2018-05-16 14:18 | PRG ---
DATE OF SERVICE: 05/16/2018 SUBJECTIVE: A 67-year-old gentleman being seen for hyponatremia. The patient denies any nausea, vomiting, or chest pain. OBJECTIVE: CONSTITUTIONAL: On examination, the patient is awake, alert. VITAL SIGNS: Temperature afebrile, pulse 87, breathing is 16, and blood pressure 124/71. GENERAL APPEARANCE AND MENTAL STATUS: Fair. HEAD/NECK: Normocephalic. Atraumatic. EYES: EOMI. No deformity. EARS: Clear. No ulcers. NOSE: Intact. No lesions. MOUTH: Clear. No discharge. THROAT: Clear. No exudate. LUNGS: Clear. No crackles. CARDIAC: S1, S2. No rub. ABDOMEN: Benign. Bowel sounds positive. GENITALIA/RECTUM: Joshua absent. BACK/EXTREMITIES: Edema 0+. NEUROLOGICAL: Alert and motor intact. LABORATORY DATA: Sodium 129. ASSESSMENT AND PLAN: 1. Hyponatremia, resolved. 2. Chronic kidney disease, stable. 3. Hypertension, stable. 4. Medication based on glomerular filtration rate are appropriate. 5. I will sign off on this patient. Please reconsult as needed. Job ID: [id number]
[2018-05-16] MEDS: Citalopram 20 MG TAB PO SCH (20:23)
[2018-05-16] MEDS: Tamsulosin HCl 0.4 MG CAP PO SCH (20:24)
[2018-05-16] MEDS: Glimepiride 4 MG TAB PO SCH (20:25)
--- NOTE | 2018-05-17 00:02 | CON ---
DATE OF CONSULTATION: REASON FOR CONSULTATION: Need for muscle biopsy and evaluation of diabetic foot wounds. HISTORY: Mr. Vasquez is a 67-year-old man, who presented to the emergency room with shortness of breath. He was found to have hyponatremia and fluid overload with some signs of congestive heart failure. He was also significantly weak and unable to walk or transfer. PAST MEDICAL HISTORY: He has past medical history of diabetes and prostate cancer and has undergone back surgery in the past, and repair of left leg fracture. OUTPATIENT MEDICATIONS: Include, 1. Losartan/hydrochlorothiazide. 2. Amlodipine. 3. Pantoprazole. 4. Diclofenac. 5. Glimepiride. 6. Simvastatin. 7. Citalopram. 8. Tamsulosin. FAMILY HISTORY: He has a family history of CHF, heart disease, and coronary artery disease. ALLERGIES: HAS NO ALLERGIES. SOCIAL HISTORY: Does not smoke or use illicit drugs. He drinks only occasionally and not to excess. The weakness has been progressive over probably several weeks. He has been on his statin for many years and has not had any recent medication changes. He was noted to have an elevated creatine-kinase and significant weakness on exam, so Neurology was consulted, and recommended a muscle biopsy. In addition, he was noted to have chronic wounds on both of his feet and Wound Care was consulted, and they have been doing daily dressing changes. He stated that the wounds originated as calluses, which then formed ulcers underneath the calluses. He denies any pain, redness, swelling, or significant drainage. He has been in the care of a [facility] in [place] for a year now, but the ulcers have not healed. He states that he did undergo evaluation of his blood supply to his foot with angiography and was told that was okay, but he does not have any other records. PHYSICAL EXAMINATION: VITAL SIGNS: The patient is afebrile, with normal heart rate, blood pressure, and 95% saturated on 2 L nasal cannula while sitting up. He states that he cannot breathe, when he is lying flat. HEENT: Unremarkable. NECK: Supple without lymphadenopathy or thyroid nodules. HEART: Regular in its rate and rhythm without murmurs, rubs, or gallops. LUNGS: Are clear to auscultation, although breath sounds are somewhat distant. ABDOMEN: Soft, nontender, and nondistended. He has a large abdominal wall hernia, which he states has been present for many years. This is not reducible, but is also nontender. EXTREMITIES: Are warm and pink, but I cannot feel any pulses below the femoral level. He does not have any significant edema. The ulcers are clean and granulating and do not probe into the deep tissues. He does have some residual callus around the margins of the wound. NEURO: He has significant weakness of upper and lower extremities. He is unable to stand to transfer. He can lift his right arm against gravity but not against resistance and cannot lift his left arm against gravity. PSYCHIATRIC: Alert, oriented, and appropriate. LABORATORY DATA: White count is normal, hematocrit 35, and platelets 248. Electrolytes were unremarkable except for a bicarb of 36. Creatine kinase was significantly elevated on admission at 1386 and has since come down to 388. TSH was normal. BNP was normal. DIAGNOSTIC STUDIES: Echocardiogram had limited visualization but estimated ejection fraction of 50% to 55% with diastolic dysfunction, and CT of chest obtained on his admission was negative for PE and showed cardiomegaly with some vascular congestion and bibasilar atelectasis. He was incidentally noted to have cholelithiasis. ASSESSMENT: Possible myopathy. The patient does have significant weakness, and a muscle biopsy has been requested by his neurologist. Unfortunately, because of the long holiday weekend, I do not believe that this can be sent until Friday. I have placed him on the OR schedule for that day. If his weakness resolves, we may be able to forego this, and I have some concerns about his ability to tolerate anesthesia since he cannot sleep or lie down in bed due to shortness of breath. I will discuss this with his house repairer, this can likely just be done with some sedation that he will need to lie in a semi-supine position. I would prefer not to intubate him if possible due to his weakness and shortness of breath, may be difficult to extubate postoperatively. With regard to his bilateral great toe lesions, these appear clean and chronic. I suspect the reason they have not healed is inadequate blood flow, although the patient was told that his angiogram was okay. We will try to obtain the records from [facility] regarding the angiogram to see what exactly they saw and a vascular surgery consult might be indicated. He has not set up wound care in this area and I would recommend that he see the W[facility] and followup with them as an outpatient. He might benefit from hyperbaric therapy or other dressing change options to try to get these chronic wounds to heal. No surgical debridement is necessary at this time. Job ID: [id number]
[2018-05-17] MEDS ORDERED: Lidocaine 1% w/Epinephrine 1:100K 20 ML VIAL IJ SCH (01:15)
[2018-05-17] MEDS: traMADol HCl 50 MG TAB PO PRN ×3 (02:38→20:38)
[2018-05-17] MEDS ORDERED: Bacitracin Zinc 1 Packet TOP PRN (02:49)
[2018-05-17] MEDS: ALPRAZolam 0.25 MG TAB PO PRN ×3 (04:03→22:28)
--- NOTE | 2018-05-17 06:20 | PDOC.EVN ---
Event Note - Event Note Event Note: pt feel last night, ct brain negative. pt has a laceration to his left forehead. was sutured by residents. pt otherwise stable.
[2018-05-17] MEDS: Calcium Carbonate 600 MG TAB PO SCH (08:20)
[2018-05-17] MEDS: Magnesium Oxide 400 MG TAB PO SCH ×2 (08:20→20:38)
[2018-05-17] MEDS: Amlodipine 10 MG TAB PO SCH (08:21)
[2018-05-17] MEDS: Losartan 25 MG TAB PO SCH (08:21)
[2018-05-17] MEDS: Ascorbic Acid 500 mg Chewable Tablet PO SCH (08:23)
[2018-05-17 08:56] LABS: BUN (Urea Nitrogen) 25 mg/dL (8.4-25.7); Calc. Creatinine Clearance 144 mL/min (70-130); Calcium 9.8 mg/dL (7.8-10.44); Estimated GFR-MDRD Greater than 90; Glucose 100 mg/dL (80-115)
[2018-05-17 09:07] LABS: Anion Gap 9 mmol/L (10-20); Carbon Dioxide 40 mmol/L (23-31); Chloride 87 mmol/L (98-107); Potassium 4.2 mmol/L (3.5-5.1); Sodium 132 mmol/L (136-145)
--- NOTE | 2018-05-17 09:46 | CT ---
PRELIMINARY REPORT/[facility]/EMERGENTY AFTER-HOURS PROCEDURE CT Head Without Contrast EXAM DATE/TIME: 05/17/2018 1:22 AM CLINICAL HISTORY: 67 years old, male; Injury or trauma; Fall; Initial encounter; Laceration; Without loss of consciousn ess; Without residual foreign body; Forehead; Patient HX: Post fall this am w/ head lac. TECHNIQUE: Axial computed tomography images of the head/brain without contrast. COMPARISON: No relevant prior studies available. FINDINGS: Brain: No intracrainal hemorrhage. No midline shift. The brain parenchyma appears normal for age. Ventricles: No ventriculomegaly. Bones/joints: Normal. No acute fracture. Sinuses: Normal as visualized. No acute sinusitis. Mastoid air cells: Normal as visualized. No mastoid effusion. Soft tissues: Anterior left soft tissue contusion. IMPRESSION: No acute intracranial abnormality. Thank you for allowing us to participate in the care of your patient. Dictated and Authenticated by: Abdon Landaverde MD 05/17/2018 1:43 AM Central Time ([place] & [place]) FINAL REPORT CT BRAIN WITHOUT CONTRAST: Date: 05/17/18 FINDINGS/IMPRESSION: I agree with the preliminary report given by Sharon. POS: SAMANTHA
--- NOTE | 2018-05-17 10:21 | PDOC.PN ---
- Subjective Encounter Start Date: 05/17/18 Encounter Start Time: 09:15 -: No specific complaint. - Objective Resuscitation Status - Order Detail: 05/12/18 13:02 Resuscitation Status Routine Resuscitation Status: FULL: Full Resuscitation Vital Signs & Weight: Vital Signs (12 hours) Temp Temp Pulse Pulse Resp Resp BP 05/17/18 09:10 97.9 F 101 H 20 05/17/18 08:21 94 120/73 05/17/18 08:00 05/17/18 04:31 98.0 F 91 22 H 05/17/18 00:50 97.7 F 85 22 H 05/17/18 00:00 98 F 84 22 H BP BP BP Pulse Ox Pulse Ox 05/17/18 09:10 120/73 94 L 05/17/18 08:21 05/17/18 08:00 94 L 05/17/18 04:31 147/82 H 96 05/17/18 00:50 151/78 H 94 L 05/17/18 00:00 133/61 97 Weight Admit Weight 229 lb 4.492 oz Weight 222 lb 11.2 oz I&O: 05/16/18 05/17/18 05/18/18 06:59 06:59 06:59 Intake Total 830 1220 Output Total 1010 380 Balance -180 840 Result Diagrams: 05/15/18 06:41 05/17/18 07:04 Additional Labs: Accuchecks 05/16/18 05/16/18 05/16/18 20:38 16:42 11:35 POC Glucose 191 H 180 H 154 H Phys Exam - Physical Examination Neck: no JVD Cardiovascular: RRR Gastrointestinal: soft Musculoskeletal: edema present Neurological: moves all 4 limbs Psychiatric: normal affect Dx/Plan (1) Acute on chronic diastolic heart failure Code(s): I50.33 - ACUTE ON CHRONIC DIASTOLIC (CONGESTIVE) HEART FAILURE Status : Acute Comment: improving.. (2) Acute respiratory failure with hypoxia Code(s): J96.01 - ACUTE RESPIRATORY FAILURE WITH HYPOXIA Status: Acute Comment: improving.. (3) Diabetes mellitus type 2 in obese Code(s): E11.69 - TYPE 2 DIABETES MELLITUS WITH OTHER SPECIFIED COMPLICATION; E66.9 - OBESITY, UNSPECIFIED Status: Acute Comment: BS satisfactory. (4) Hyponatremia Code(s): E87.1 - HYPO-OSMOLALITY AND HYPONATREMIA Status: Acute Comment: Improving....Na 132 Continue fluid restriction. Check thyroid function.. (5) Progressive focal motor weakness Code(s): R53.1 - WEAKNESS Status: Acute - Plan * .
[2018-05-17] MEDS: Enoxaparin Sodium 40 MG/0.4 ML SYRINGE SC SCH (12:02)
[2018-05-17] MEDS: HumaLOG 300 UNITS/3 ML VIAL SC PRN (17:33)
[2018-05-17] MEDS: Tamsulosin HCl 0.4 MG CAP PO SCH (20:38)
[2018-05-17] MEDS: Glimepiride 4 MG TAB PO SCH (20:39)
[2018-05-17] MEDS: Citalopram 20 MG TAB PO SCH (20:40)
[2018-05-18] MEDS: traMADol HCl 50 MG TAB PO PRN ×3 (02:35→21:21)
[2018-05-18] MEDS: ALPRAZolam 0.25 MG TAB PO PRN ×2 (06:08→20:17)
[2018-05-18 06:55] LABS: BUN (Urea Nitrogen) 20 mg/dL (8.4-25.7); Calc. Creatinine Clearance 160 mL/min (70-130); Estimated GFR-MDRD Greater than 90; Glucose 90 mg/dL (80-115)
[2018-05-18 07:04] LABS: Anion Gap 13 mmol/L (10-20); Carbon Dioxide 37 mmol/L (23-31); Chloride 89 mmol/L (98-107); Potassium 4.5 mmol/L (3.5-5.1); Sodium 134 mmol/L (136-145)
[2018-05-18 07:13] LABS: Free T4 (Free Thyroxine) 1.14 ng/dL (0.70-1.48); Thyroid Stimulating Hormone 2.2885 uIU/mL (0.35-4.94)
[2018-05-18] MEDS: Losartan 25 MG TAB PO SCH (08:58)
[2018-05-18] MEDS: Ascorbic Acid 500 mg Chewable Tablet PO SCH (08:59)
[2018-05-18] MEDS: Calcium Carbonate 600 MG TAB PO SCH (08:59)
[2018-05-18] MEDS: Amlodipine 10 MG TAB PO SCH (09:00)
[2018-05-18] MEDS: Magnesium Oxide 400 MG TAB PO SCH ×2 (09:00→20:17)
[2018-05-18] MEDS: Enoxaparin Sodium 40 MG/0.4 ML SYRINGE SC SCH (09:01)
--- NOTE | 2018-05-18 10:57 | PDOC.PN ---
- Subjective Encounter Start Date: 05/18/18 Encounter Start Time: 10:57 -: old records requested/rev Pt seen and examined, chart reviewed in its entirety, this is my first visit with this patient follow up for acute hypoemic respiratory failure, hyponatremia, DM2 No F/C, no n/V/d/C, no CP or sOB all systems reviewed and neg x as per HPI - Objective Resuscitation Status - Order Detail: 05/12/18 13:02 Resuscitation Status Routine Resuscitation Status: FULL: Full Resuscitation MAR Reviewed: Yes Vital Signs & Weight: Vital Signs (12 hours) Temp Pulse Resp BP BP Pulse Ox 05/18/18 09:00 90 114/73 05/18/18 08:44 93 L 05/18/18 07:39 96.4 F L 90 18 114/73 93 L 05/18/18 04:00 97.6 F 80 18 139/77 98 05/18/18 00:00 98.3 F 88 16 133/73 96 Weight Admit Weight 229 lb 4.492 oz Weight 222 lb 11.2 oz I&O: 05/17/18 05/18/18 05/19/18 06:59 06:59 06:59 Intake Total 1220 900 Output Total 380 925 Balance 840 -25 Result Diagrams: 05/15/18 06:41 05/19/18 06:50 Additional Labs: Accuchecks 05/18/18 05/17/18 05/17/18 05:35 20:37 15:57 POC Glucose 96 134 H 219 H 05/17/18 05/17/18 11:20 04:45 POC Glucose 181 H 130 H Radiology Reviewed by me: Yes EKG Reviewed by me: Yes Phys Exam - Physical Examination Constitutional: NAD HEENT: PERRLA, moist MMs, sclera anicteric, oral pharynx no lesions Neck: no nodes, no JVD, supple, full ROM Respiratory: no wheezing, no rales, no rhonchi, clear to auscultation bilateral Cardiovascular: RRR, no significant murmur, no rub Gastrointestinal: soft, non-tender, no distention, positive bowel sounds Musculoskeletal: no edema, pulses present Neurological: non-focal, normal sensation, moves all 4 limbs Lymphatic: no nodes Psychiatric: normal affect, A&O x 3 Skin: no rash, normal turgor, cap refill <2 seconds Dx/Plan (1) Acute on chronic diastolic heart failure Code(s): I50.33 - ACUTE ON CHRONIC DIASTOLIC (CONGESTIVE) HEART FAILURE Status : Acute Comment: improving.. (2) Acute respiratory failure with hypoxia Code(s): J96.01 - ACUTE RESPIRATORY FAILURE WITH HYPOXIA Status: Acute Comment: improving.. (3) Diabetes mellitus type 2 in obese Code(s): E11.69 - TYPE 2 DIABETES MELLITUS WITH OTHER SPECIFIED COMPLICATION; E66.9 - OBESITY, UNSPECIFIED Status: Acute Comment: BS satisfactory. (4) Hyponatremia Code(s): E87.1 - HYPO-OSMOLALITY AND HYPONATREMIA Status: Acute Comment: Improving....Na 132 Continue fluid restriction. Check thyroid function.. (5) Progressive focal motor weakness Code(s): R53.1 - WEAKNESS Status: Acute - Plan * .
[2018-05-18] MEDS: HumaLOG 300 UNITS/3 ML VIAL SC PRN (12:06)
[2018-05-18 18:48] VITALS: BMI 31.0
[2018-05-18] MEDS: Tamsulosin HCl 0.4 MG CAP PO SCH (20:17)
[2018-05-18] MEDS: Citalopram 20 MG TAB PO SCH (20:17)
[2018-05-18] MEDS: Glimepiride 4 MG TAB PO SCH (20:18)
[2018-05-19] MEDS: traMADol HCl 50 MG TAB PO PRN ×4 (03:19→21:55)
[2018-05-19] MEDS: ALPRAZolam 0.25 MG TAB PO PRN ×2 (04:00→21:18)
[2018-05-19 07:23] LABS: BUN (Urea Nitrogen) 16 mg/dL (8.4-25.7); Calc. Creatinine Clearance 155 mL/min (70-130); Estimated GFR-MDRD Greater than 90; Glucose 64 mg/dL (80-115)
[2018-05-19 07:34] LABS: Anion Gap 15 mmol/L (10-20); Carbon Dioxide 36 mmol/L (23-31); Chloride 91 mmol/L (98-107); Potassium 4.7 mmol/L (3.5-5.1); Sodium 137 mmol/L (136-145)
[2018-05-19] MEDS: Magnesium Oxide 400 MG TAB PO SCH ×2 (08:07→21:14)
[2018-05-19] MEDS: Ascorbic Acid 500 mg Chewable Tablet PO SCH (08:08)
[2018-05-19] MEDS: Losartan 25 MG TAB PO SCH (08:08)
[2018-05-19] MEDS: Amlodipine 10 MG TAB PO SCH (08:08)
[2018-05-19] MEDS: Calcium Carbonate 600 MG TAB PO SCH (08:08)
[2018-05-19] MEDS: Enoxaparin Sodium 40 MG/0.4 ML SYRINGE SC SCH (08:09)
--- NOTE | 2018-05-19 16:50 | PDOC.PN ---
- Subjective Encounter Start Date: 05/19/18 Encounter Start Time: 11:20 follow up for acute hypoemic respiratory failure, hyponatremia, DM2 No F/C, no n/V/d/C, no CP or sOB all systems reviewed and neg x as per HP - Objective Resuscitation Status - Order Detail: 05/12/18 13:02 Resuscitation Status Routine Resuscitation Status: FULL: Full Resuscitation MAR Reviewed: Yes Vital Signs & Weight: Vital Signs (12 hours) Temp Pulse Resp BP BP Pulse Ox 05/19/18 08:08 92 127/78 05/19/18 07:46 97.8 F 92 18 127/78 94 L Weight Admit Weight 229 lb 4.492 oz Weight 222 lb 11.2 oz I&O: 05/18/18 05/19/18 05/20/18 06:59 06:59 06:59 Intake Total 900 750 Output Total 925 1000 Balance -25 -250 Result Diagrams: 05/15/18 06:41 05/19/18 06:50 Additional Labs: Accuchecks 05/19/18 05/19/18 05/18/18 11:16 05:04 20:07 POC Glucose 160 H 70 140 H 05/18/18 16:08 POC Glucose 145 H Dx/Plan (1) Acute on chronic diastolic heart failure Code(s): I50.33 - ACUTE ON CHRONIC DIASTOLIC (CONGESTIVE) HEART FAILURE Status : Acute Comment: improving.. (2) Acute respiratory failure with hypoxia Code(s): J96.01 - ACUTE RESPIRATORY FAILURE WITH HYPOXIA Status: Acute Comment: improving.. (3) Diabetes mellitus type 2 in obese Code(s): E11.69 - TYPE 2 DIABETES MELLITUS WITH OTHER SPECIFIED COMPLICATION; E66.9 - OBESITY, UNSPECIFIED Status: Acute Comment: BS satisfactory. (4) Hyponatremia Code(s): E87.1 - HYPO-OSMOLALITY AND HYPONATREMIA Status: Acute Comment: Improving....Na 132 Continue fluid restriction. Check thyroid function.. (5) Progressive focal motor weakness Code(s): R53.1 - WEAKNESS Status: Acute - Plan * .
[2018-05-19] MEDS: Citalopram 20 MG TAB PO SCH (21:14)
[2018-05-19] MEDS: Tamsulosin HCl 0.4 MG CAP PO SCH (21:16)
[2018-05-19] MEDS: Glimepiride 4 MG TAB PO SCH (21:16)
[2018-05-20 04:56] VITALS: TEMP 97.7
[2018-05-20] MEDS ORDERED: Dextrose 5 %-0.45 % NaCl 1,000 ML IV SCH (05:00)
[2018-05-20] MEDS ORDERED: Bupivacaine HCl 0.5%/Epinephrine 1:200,000/PF 30 ml Vial ONE (06:37)
[2018-05-20] MEDS ORDERED: Lidocaine 1% (PF) 30 ML VIAL ONE (07:12)
[2018-05-20] MEDS ORDERED: Ropivacaine 0.5% HCl/PF (150 MG/30 ML VIAL) ONE (10:00)
[2018-05-20] MEDS ORDERED: PROPOFOL 200 MG/20 ML VIAL ONE (10:00)
[2018-05-20] MEDS: Losartan 25 MG TAB PO SCH (10:03)
[2018-05-20] MEDS: Amlodipine 10 MG TAB PO SCH (10:03)
[2018-05-20] MEDS: Ascorbic Acid 500 mg Chewable Tablet PO SCH (10:04)
[2018-05-20] MEDS: Magnesium Oxide 400 MG TAB PO SCH (10:04)
[2018-05-20] MEDS: Calcium Carbonate 600 MG TAB PO SCH (10:04)
[2018-05-20 10:05] VITALS: BP 170/97
[2018-05-20] MEDS: Enoxaparin Sodium 40 MG/0.4 ML SYRINGE SC SCH (10:05)
[2018-05-20 10:09] LABS: Anion Gap 10 mmol/L (10-20); BUN (Urea Nitrogen) 15 mg/dL (8.4-25.7); Calc. Creatinine Clearance 144 mL/min (70-130); Calcium 9.5 mg/dL (7.8-10.44); Carbon Dioxide 37 mmol/L (23-31); Chloride 92 mmol/L (98-107); Estimated GFR-MDRD Greater than 90; Glucose 142 mg/dL (80-115); Potassium 4.5 mmol/L (3.5-5.1); Sodium 134 mmol/L (136-145)
--- NOTE | 2018-05-20 10:41 | PDOC.OP ---
Operative Note - Operative Note Operative Note: PROCEDURE: Muscle biopsy left deltoid DATE OF PROCEDURE: 05/20/2018 SURGEON: Codey Mejia M.D. PREOPERATIVE DIAGNOSES: Myositis POSTOPERATIVE DIAGNOSIS: Myositis HISTORY: Patient presented with difficulty breathing and diffuse weakness of unclear etiology. Muscle biopsy has been requested by his neurologist. PROCEDURE IN DETAIL: After informed consent was obtained the patient was taken to the operating room where he was placed in the semi-upright position and prepped and draped in standard sterile fashion. A regional block had been performed preoperatively and adequacy of the block was confirmed. A longitudinal incision was made overlying the left deltoid and dissection carried down to the fascia which was sharply incised. A bundle of muscle was dissected free circumferentially and placed into the muscle biopsy clip and cut proximally and distally. No cautery was used in the proximity of the muscle. The specimen was sent fresh to pathology for stat processing. The wound was then examined and several small muscular bleeders cauterized and hemostasis obtained. The fascia was reapproximated with 2-0 Vicryl suture. The subcutaneous tissues were reapproximated with 3-0 Monocryl suture and the skin was closed with 4-0 Monocryl suture. Dermabond dressing was placed and the patient was taken to recovery in good condition. Estimated blood loss was minimal. There were no complications. Specimen is muscle biopsy from the left deltoid.
[2018-05-20 14:13] LABS: Acetylcholine Receptor Binding Less than 0.03 nmol/L (0.00-0.24)
[2018-05-21 12:10] LABS: Myeloperoxidase AutoAbs <9.0 U/mL (0.0-9.0); Perinuclear (P-ANCA) <1:20 titer (Neg:<1:20); Proteinase-3 AutoAbs 51.4 U/mL (0.0-3.5)
== END 2018-05-20 14:10 | disposition swing bed (61) | DRG 987 ==
LOC: ERS 10:15 → IMCU/EMU 12:25 → MERGE 12:25 → T4-B 05-14 18:36
PROVIDERS: ADMIT Internal Medicine; ATTEND Internal Medicine
PROC: 0KB80ZX Excision of Left Upper Arm Muscle, Open Approach, Diagnostic (ICD-10-PCS; principal; 2018-05-20)
DX: I13.0 Hypertensive heart and chronic kidney disease with heart failure and stage 1 through stage 4 chronic kidney disease, or unspecified chronic kidney disease (principal); J96.01 Acute respiratory failure with hypoxia; J18.9 Pneumonia, unspecified organism; I50.33 Acute on chronic diastolic (congestive) heart failure; J96.02 Acute respiratory failure with hypercapnia; E22.2 Syndrome of inappropriate secretion of antidiuretic hormone; E87.6 Hypokalemia; L97.509 Non-pressure chronic ulcer of other part of unspecified foot with unspecified severity; E11.22 Type 2 diabetes mellitus with diabetic chronic kidney disease; N18.9 Chronic kidney disease, unspecified; E78.5 Hyperlipidemia, unspecified; E66.9 Obesity, unspecified; Z68.31 Body mass index [BMI] 31.0-31.9, adult; R53.1 Weakness; M60.9 Myositis, unspecified; Z85.46 Personal history of malignant neoplasm of prostate; Z92.3 Personal history of irradiation; Z79.899 Other long term (current) drug therapy
CPT/HCPCS: 36415; 36416; 51702; 70450; 71045; 71275; 80048; 80053; 82085; 82436; 82550; 82805; 83519; 83520; 83735; 83880; 83930; 83935; 84100; 84133; 84300; 84439; 84443; 84478; 84484; 85025; 85652; 86038; 86200; 86225; 86256; 88305; 93005; 93306; 93798; 94640; 96365; 96367; 96375; G8978-GP-CL; G8979-GP-CJ; G8987-GO-CK; G8988-GO-CJ; J0670; J0692; J1650; J1940; J2001; J2270; J2704; J2795; J3480; J7050; J7620; Q9967

== ENCOUNTER 2018-05-25 13:26 | Inpatient (IN) | payer MEDICARE ==
[2018-05-25] MEDS ORDERED: Ondansetron PF 4 MG/2 ML Vial IVP PRN (14:25)
[2018-05-25] MEDS ORDERED: Loperamide HCl 2 MG CAP PO PRN (14:25)
[2018-05-25] MEDS ORDERED: hydrALAZINE 20 MG/ML VIAL SLOW IVP PRN (14:25)
[2018-05-25] MEDS ORDERED: Ondansetron ODT 4 MG TAB PO PRN (14:25)
[2018-05-25] MEDS ORDERED: Sodium Chloride 0.65% Nasal 44 ML BOT EA NARE PRN (14:25)
[2018-05-25] MEDS ORDERED: Bisacodyl 10 MG SUPP PR PRN (14:25)
[2018-05-25] MEDS ORDERED: Calcium Carbonate 500 MG ChewTAB PO PRN (14:25)
[2018-05-25] MEDS ORDERED: Dextrose 50% Abboject 50 ML SYRINGE SLOW IVP PRN (14:25)
[2018-05-25] MEDS ORDERED: Dextrose 5% in Water 1,000 ML IV PRN (14:25)
[2018-05-25] MEDS ORDERED: Loratadine 10 MG TAB PO PRN (14:25)
[2018-05-25] MEDS ORDERED: HumaLOG 300 UNITS/3 ML VIAL SC PRN (14:25)
[2018-05-25] MEDS ORDERED: Diabetic Tussin 200 MG/10 ML UDCUP PO PRN (14:25)
[2018-05-25] MEDS ORDERED: Artificial Tears 18 DROP/0.9 ML EA EYE PRN (14:25)
[2018-05-25] MEDS ORDERED: Zolpidem Tartrate 5 MG TAB PO PRN (14:25)
[2018-05-25] MEDS ORDERED: Eucerin (Mineral Oil/Petrolatum,White) 30 gm Jar TOP PRN (14:25)
[2018-05-25] MEDS ORDERED: Cepastat Lozenges 1 LOZ PO PRN (14:25)
[2018-05-25 14:42] VITALS: BMI 34.9
[2018-05-25 15:00] LABS: #Eosinphils 0.5 thou/uL (0.0-0.7); #Lymphocytes 1.1 thou/uL (1.20-3.40); #Monocytes 0.8 thou/uL (0.11-0.59); #Neutrophils 6.3 thou/uL (1.40-6.50); %Basophils 0.4 % (0.0-1.0); %Eosinophils 6.2 % (0.0-10.0); %Lymphocytes 12.2 % (21.0-51.0); %Neutrophils 72.2 % (42.0-75.0); Hemoglobin 10.5 g/dL (14.0-18.0); Mean Corpuscular HGB CONC 33.5 g/dL (32.0-36.0); Mean Corpuscular Hemoglobin 29.4 pg (27.0-31.0); Mean Corpuscular Volume 87.9 fL (78.0-98.0); Mean Platelet Volume 6.7 fL (7.4-10.4); Platelet Count 271 thou/uL (130-400); RBC Distribution Width 12.8 % (11.5-14.5); Red Blood Cell (RBC) Count 3.57 mill/uL (4.70-6.10); White Blood Cell (WBC) Count 8.7 thou/uL (4.8-10.8)
[2018-05-25 15:17] LABS: ALT (SGPT) 34 U/L (8-55); AST (SGOT) 32 U/L (5-34); Albumin 3.5 g/dL (3.4-4.8); Alkaline Phosphatase 83 U/L (40-150); Anion Gap 12 mmol/L (10-20); BUN (Urea Nitrogen) 12 mg/dL (8.4-25.7); Bilirubin, Total 0.7 mg/dL (0.2-1.2); CK (CPK) 162 U/L (30-200); Calc. Creatinine Clearance 160 mL/min (70-130); Calcium 9.7 mg/dL (7.8-10.44); Carbon Dioxide 35 mmol/L (23-31); Chloride 86 mmol/L (98-107); Estimated GFR-MDRD Greater than 90; Globulin 2.9 g/dL (2.4-3.5); Glucose 72 mg/dL (80-115); Potassium 3.4 mmol/L (3.5-5.1); Protein, Total 6.4 g/dL (5.8-8.1); Sodium 130 mmol/L (136-145)
[2018-05-25] MEDS: Acetaminophen 325 MG TAB PO PRN (16:05)
--- NOTE | 2018-05-25 16:27 | HP ---
PRIMARY CARE PHYSICIAN: REASON FOR ADMISSION: Left upper and lower extremity weakness. HISTORY OF PRESENT ILLNESS: A 67-year-old male, who was recently hospitalized in our hospital on May 12, 2018 and he was discharged to swing bed on May 19, 2018. During that admission, the patient had episode of fall and he was found with rhabdomyolysis. He was hypoxic and that is why he was treated with diuretic therapy for diastolic heart failure. Echocardiography during that admission showed diastolic dysfunction. Cardiology and Neurology were consulted during that admission. This patient is almost experiencing weakness predominantly on the left side, both upper and lower extremity for 6 weeks. He is falling frequently at home. He is not able to hold his neck in straight position for a period of time, because he is feeling weakness. He is not able to raise his both upper extremity above his head. He has difficulty performing above head activity. He is also having difficulty walking and he is dragging his left lower extremity. He has difficulty climbing. This condition has gradually gotten worse. Now, he is not able to walk and he is falling frequently. Last time when he was in our hospital at that time, the patient had full workup sent. Only anti-proteinase 3 antibody came back positive. The rest of rheumatoid workup, KIN, anti-dsDNA, hepatitis profile came back negative. Thyroid function test was normal. His CK was elevated, but at that time, it was presumed from his fall related increased muscle injury and his aldolase came back negative. He also had muscle biopsy done, but pathology report is pending. The patient was discharged to swing bed and the patient also had shoulder x-ray, which was normal. He also had CT of brain, which was also negative. The patient also had neck x-ray, which showed some arthritis changes and that is why primary care physician was suspecting some cervical spine problem and that is why he was referred this patient back to the hospital for more investigation. PAST MEDICAL HISTORY: Diabetes type 2, history of prostate cancer, chronic diastolic heart failure. PAST SURGICAL HISTORY: Back surgery, left leg fracture repair. CURRENT HOME MEDICATIONS: 1. Amlodipine 10 mg daily. 2. Vitamin C 100 mg p.o. daily. 3. Aspirin 81 mg p.o. at bedtime. 4. Calcium carbonate 600 mg p.o. daily. 5. Celexa 40 mg p.o. at bedtime. 6. Diclofenac sodium 75 mg p.o. b.i.d. 7. Vitamin D2 2000 units p.o. daily. 8. Amaryl 2 mg p.o. at bedtime. 9. Losartan with hydrochlorothiazide 1 tablet p.o. daily. 10. Lovastatin 40 mg p.o. at bedtime. 11. Protonix 40 mg p.o. daily. 12. Flomax 0.4 mg p.o. at bedtime. 13. DuoNeb q.6 hourly p.r.n. 14. Xanax 0.25 mg p.r.n. FAMILY HISTORY: Mother had congestive heart failure and she at age of 58. Father was 65 when he had massive heart attack. ALLERGIES: NO KNOWN DRUG ALLERGIES. SOCIAL HISTORY: The patient is , lives at home. Currently, he is from [facility]. He does not have any smoking. He denies any other illicit drugs. He drinks alcohol occasionally. REVIEW OF SYSTEMS: CONSTITUTIONAL: Negative for weight loss or gain, ability to conduct usual activities. SKIN: Negative for rash, itching. EYES: Negative for double vision, pain. ENT/MOUTH: Negative for nose bleeding, neck stiffness, pain, tenderness. CARDIOVASCULAR: Negative for palpitations, dyspnea on exertion, orthopnea. RESPIRATORY: Negative for shortness of breath, wheezing, cough, hemoptysis, fever or night sweats. GASTROINTESTINAL: Negative for poor appetite, abdominal pain, heartburn, nausea , vomiting, constipation, or diarrhea. GENITOURINARY: Negative for urgency, frequency, dysuria, nocturia. MUSCULOSKELETAL: Negative for pain, swelling. NEUROLOGIC/PSYCHIATRIC: Negative for anxiety, depression. ALLERGY/IMMUNOLOGIC: Negative for skin rash, bleeding tendency. Please see my HPI for pertinent positive and negative. All other review of systems reviewed and negative except as mentioned in the HPI. ADDITIONAL INFORMATION: The patient was hypoxic when he was lifted from his gurney to his bed and he required oxygen to improve his oxygen saturation. PHYSICAL EXAMINATION: VITAL SIGNS: Current vital signs; temperature 97.2, pulse 91, respiratory rate 24, saturation 94% on 4 L, blood pressure 146/75, weight 230 pounds. GENERAL: The patient is currently alert, awake, in no obvious acute distress. HEENT: Head; normocephalic, atraumatic. Eyes; pupils are round and reactive to light. Extraocular muscle intact. ENT; oropharynx within normal limits. Moist mucous membranes. No oral lesion. No pharyngeal erythema. No exudate. NECK: Supple. No JVD. No thyromegaly. No carotid bruit. LUNGS: Clear to auscultation without any rhonchi or rales. CARDIAC: S1, S2 regular. No murmur. No gallop. No rub. ABDOMEN: Soft. Obesity present. Bowel sounds present. Nontender. Nondistended. No organomegaly. No mass. No suprapubic tenderness. BACK: Unremarkable. No CVA tenderness. EXTREMITIES: Upper extremities; passive movement of all joints are normal. Lower extremities; no edema or ulcer noted on both toes. NEUROLOGIC: Nonfocal examination other than the patient does have weakness on left upper and lower extremity. He has difficulty holding his neck in one particular position he gets tired with this. Reflexes are hypoactive. Sensation unremarkable. ASSESSMENT AND PLAN: 1. Left upper and lower extremity weakness. The patient also has right-sided weakness predominantly on the left side. Differential diagnosis is very broad. At this point, we will need MRI brain, cervical spine to rule out any local pathology. Unfortunately, this patient cannot lie down flat and that is why we cannot do MRI here at this point. We will try to do under anesthesia tomorrow. We will consult Anesthesia Team tomorrow for MRI to be done under anesthesia. 2. Vasculitis and mononeuritis multiplex. His anti-proteinase 3 is very high. We will consult Rheumatology for input. He already had muscle biopsy done, but official report is pending. Depending upon pathology report, more investigation result will decide treatment plan. This patient has various risk factors for stroke and that is why MRI is very important, but we will try to do it tomorrow. We will also check ESR and CRP. We will also check total CK level. PT/OT will be consulted. 3. Dyspnea with hypoxia. This patient I am suspecting that he may have a diaphragmatic nerve weakness and that may be contributing to his orthopnea. His lungs are not that bad, but we will do the chest x-ray. His chest x-rays also showed some chronic changes. We will do pulmonary function test. 4. Diabetes, type 2. We will continue with the patient's home medication while in hospital, insulin as per sliding scale per protocol. 5. Hypertension. We will continue amlodipine 10 mg p.o. daily. 6. Anxiety and depression. We will continue Celexa 40 mg p.o. daily. 7. Gastroesophageal reflux disease. We will continue Protonix 40 mg p.o. daily. 8. Benign enlargement of prostate. We will continue Flomax 0.4 mg p.o. at bedtime. 9. Deep venous thrombosis prophylaxis. Lovenox 40 mg subcu daily. 10. GI prophylaxis, Protonix 40 mg p.o. daily. 11. Chronic iron deficiency anemia. Continue ferrous sulfate 325 mg p.o. daily. CODE STATUS: The patient is full code. The patient's is surrogate decision maker. Disposition plan based on clinical course. We are expecting the patient 's stay in the hospital more than two midnights. Plan of care discussed with the patient and family member at bedside. Job ID: [id number] MTDD
[2018-05-25] MEDS ORDERED: ALPRAZolam 0.25 MG TAB PO PRN (16:36)
[2018-05-25 17:14] LABS: Bilirubin Negative (Negative); Blood, Urine Negative (Negative); Clarity CLOUDY (Clear); Glucose, Urine (Dipstick) Negative (Negative); Leukocyte Moderate (Negative); Nitrite Negative (Negative); Protein, Urine (Dipstick) Negative (Neg-Trace); Specific Gravity, Urine 1.016 (1.002-1.036)
--- NOTE | 2018-05-25 17:15 | RAD ---
CHEST ONE VIEW: HISTORY: Dyspnea. COMPARISON: 05/23/2018 FINDINGS: The cardiac silhouette is magnified by projection and partially obscured by patchy bibasilar infiltra praful and pleural fluid. Pulmonary vasculature is slightly more engorged with worsening reticulonodula r interstitial prominence. The mediastinum is midline with aortic calcification. IMPRESSION: The pulmonary edema has worsened since the previous examination. Other findings are stable. POS: JOSEH
[2018-05-25 17:16] LABS: Bacteria/HPF None Seen HPF (None Seen); Hyaline Casts/LPF 4-6 HYALINE CAST LPF (0-3 Hyaline); Pathc Cast-AUWi Flag 1.16 (0-2.49); RBC/HPF 0-3 HPF (0-3); Squamous Epithelial 0-3 HPF (0-3)
[2018-05-25 17:35] LABS: Crystals/HPF 1+ AMORPH PHOS HPF (Negative)
[2018-05-25] MEDS ORDERED: Famotidine 20 MG TAB PO SCH (21:00)
[2018-05-25] MEDS: Tamsulosin HCl 0.4 MG CAP PO SCH (21:06)
[2018-05-25] MEDS: Senokot S 8.6-50 MG TAB PO PRN (21:06)
[2018-05-25] MEDS: HYDROcodone/Acetaminophen 5/325 mg Tablet PO PRN (21:07)
[2018-05-25] MEDS: Glimepiride 2 MG TAB PO SCH (21:07)
[2018-05-26] MEDS ORDERED: Furosemide 20 MG/2 ML VIAL SLOW IVP SCH ×2 (06:00→07:54)
[2018-05-26] MEDS ORDERED: Furosemide 20 MG TAB PO SCH (06:30)
[2018-05-26] MEDS ORDERED: Furosemide 40 MG/4 ML VIAL SLOW IVP SCH (08:00)
[2018-05-26] MEDS: Ascorbic Acid 500 mg Chewable Tablet PO SCH (09:02)
[2018-05-26] MEDS: Calcium Carbonate 600 MG TAB PO SCH (09:04)
[2018-05-26] MEDS: Losartan/Hydrochlorothiazide 100 mg/25 mg Tablet PO SCH (09:04)
[2018-05-26] MEDS: Amlodipine 10 MG TAB PO SCH (09:05)
[2018-05-26] MEDS: HYDROcodone/Acetaminophen 5/325 mg Tablet PO PRN ×2 (09:06→21:07)
[2018-05-26] MEDS: Enoxaparin Sodium 40 MG/0.4 ML SYRINGE SC SCH (09:08)
[2018-05-26] MEDS: Bisacodyl 5 MG TAB PO PRN (09:18)
[2018-05-26] MEDS: Senokot S 8.6-50 MG TAB PO PRN (09:19)
[2018-05-26] MEDS: cefTRIAXone\\ROCEPHIN 1 GM in Sodium Chloride 0.9% 100 ML IVPB SCH (09:21)
--- NOTE | 2018-05-26 09:35 | PDOC.PN ---
- Subjective Encounter Start Date: 05/26/18 Encounter Start Time: 08:00 -: old records requested/rev pt is unable to lie down flat due to dyspnea, he has weakness on left side - Objective Resuscitation Status - Order Detail: 05/25/18 14:25 Resuscitation Status Routine Resuscitation Status: FULL: Full Resuscitation MAR Reviewed: Yes Vital Signs & Weight: Vital Signs (12 hours) Temp Pulse Resp BP Pulse Ox 05/26/18 07:32 98 F 99 20 118/72 99 05/26/18 04:10 97.9 F 100 22 H 158/86 H 96 05/26/18 01:24 95 05/25/18 22:55 97.7 F 86 22 H 134/74 99 Weight Weight 230 lb I&O: 05/25/18 05/26/18 05/27/18 06:59 06:59 06:59 Intake Total 340 Output Total 325 Balance 15 Result Diagrams: 05/25/18 14:40 05/25/18 14:40 Additional Labs: Accuchecks 05/26/18 05/25/18 05/25/18 06:00 21:06 16:29 POC Glucose 103 179 H 76 Radiology Reviewed by me: Yes (chest xray congestion noted) Phys Exam - Physical Examination Constitutional: NAD HEENT: PERRLA, moist MMs, sclera anicteric Neck: no JVD, supple Respiratory: no wheezing, no rhonchi coarse sound at base Cardiovascular: RRR, no significant murmur, no rub Gastrointestinal: soft, non-tender, no distention, positive bowel sounds Musculoskeletal: pulses present, edema present asymmetrical focal motor weakness Lymphatic: no nodes Psychiatric: normal affect, A&O x 3 Skin: no rash, normal turgor Dx/Plan (1) Acute on chronic diastolic ACC/AHA stage C congestive heart failure Code(s): I50.33 - ACUTE ON CHRONIC DIASTOLIC (CONGESTIVE) HEART FAILURE Status : Acute (2) Acute respiratory failure with hypoxia Code(s): J96.01 - ACUTE RESPIRATORY FAILURE WITH HYPOXIA Status: Acute Comment: (3) Hypokalemia Code(s): E87.6 - HYPOKALEMIA Status: Acute (4) Hyponatremia Code(s): E87.1 - HYPO-OSMOLALITY AND HYPONATREMIA Status: Acute Comment: (5) Progressive focal motor weakness Code(s): R53.1 - WEAKNESS Status: Acute (6) UTI (urinary tract infection) Status: Acute (7) Anemia, normocytic normochromic Code(s): D64.9 - ANEMIA, UNSPECIFIED Status: Chronic (8) Dyslipidemia Code(s): E78.5 - HYPERLIPIDEMIA, UNSPECIFIED Status: Chronic (9) Hypertension Code(s): I10 - ESSENTIAL (PRIMARY) HYPERTENSION Status: Chronic (10) Obesity (BMI 30-39.9) Code(s): E66.9 - OBESITY, UNSPECIFIED Status: Chronic - Plan cont current plan of care, plan discussed w/ family, continue antibiotics, PT/OT * continue lasix * replace potassium * repeat labs tomorrow * tomorrow will try to get MRI brain, cervical spine under anesthesia. * I have spoke with rheumatology about pt * neurology to see * if central etiology ruled out, then vasculitis is suspected * follow muscle biopsy and consider nerve biopsy Review of Systems - Review of Systems Constitutional: negative: fever, chills, sweats, weakness, malaise, other Eyes: negative: Pain, Vision Change, Conjunctivae Inflammation, Eyelid Inflammation, Redness, Other ENT: negative: Ear Pain, Ear Discharge, Nose Pain, Nose Discharge, Nose Congestion, Mouth Pain, Mouth Swelling, Throat Pain, Throat Swelling, Other Respiratory: negative: Cough, Dry, Shortness of Breath, Hemoptysis, SOB with Excertion, Pleuritic Pain, Sputum, Wheezing Cardiovascular: orthopnea, paroxysmal nocturnal dyspnea, edema. negative: chest pain, palpitations, light headedness, other Gastrointestinal: negative: Nausea, Vomiting, Abdominal Pain, Diarrhea, Constipation, Melena, Hematochezia, Other Genitourinary: negative: Dysuria, Frequency, Incontinence, Hematuria, Retention , Other Musculoskeletal: negative: Neck Pain, Shoulder Pain, Arm Pain, Back Pain, Hand Pain, Leg Pain, Foot Pain, Other Skin: negative: Rash, Lesions, Charlie, Bruising, Other Neurological: Weakness. negative: Numbness, Incoordination, Change in Speech, Confusion, Seizures, Other - Medications/Allergies Allergies/Adverse Reactions: Allergies Allergy/AdvReac Type Severity Reaction Status Date / Time No Known Allergies Allergy Verified 05/25/18 08:18 Medications: Current Medications Acetaminophen (Tylenol) 650 mg PO Q4H PRN PRN Reason: Headache/Fever/Mild Pain (1-3) Last Admin: 05/25/18 16:05 Dose: 650 mg Hydrocodone Bitart/Acetaminophen (Watson 5/325) 1 tab PO Q4H PRN PRN Reason: Moderate Pain (4-6) Last Admin: 05/26/18 09:06 Dose: 1 tab Albuterol/Ipratropium (Duoneb) 3 ml NEB [id number] PRN PRN Reason: SOB &/or Wheezing Alprazolam (Xanax) 0.25 mg PO Q8H PRN PRN Reason: Anxiety Amlodipine Besylate (Norvasc) 10 mg PO DAILY [facility] Last Admin: 05/26/18 09:05 Dose: 10 mg Artificial Tears (Tears Naturale) 2 drop EA EYE PRN PRN PRN Reason: Dry Eyes Ascorbic Acid (Vitamin C) 125 mg PO DAILY [facility] Last Admin: 05/26/18 09:02 Dose: 125 mg Aspirin (Aspirin Chewable) 81 mg PO HS [facility] Last Admin: 05/25/18 21:06 Dose: 81 mg Bisacodyl (Dulcolax) 10 mg NE DAILYPRN PRN PRN Reason: Constipation Bisacodyl (Dulcolax) 10 mg PO DAILYPRN PRN PRN Reason: Constipation Last Admin: 05/26/18 09:18 Dose: 10 mg Calcium Carbonate (Tums) 1,000 mg PO Q4H PRN PRN Reason: Heartburn or Indigestion Calcium Carbonate (Caltrate) 600 mg PO DAILY [facility] Last Admin: 05/26/18 09:04 Dose: 600 mg Cholecalciferol (Vitamin D3) 2,000 units PO DAILY [facility] Last Admin: 05/26/18 09:05 Dose: 2,000 units Citalopram Hydrobromide (Celexa) 40 mg PO HS [facility] Dextrose/Water (Dextrose 50%) 25 gm SLOW IVP PRN PRN PRN Reason: Hypoglycemia Enoxaparin Sodium (Lovenox) 40 mg SC 0900 [facility] Last Admin: 05/26/18 09:08 Dose: 40 mg Furosemide (Lasix) 40 mg SLOW IVP 0600,1400 [facility] Glimepiride (Amaryl) 2 mg PO HS [facility] Last Admin: 05/25/18 21:07 Dose: 2 mg Glucagon (Glucagon) 1 mg IM PRN PRN PRN Reason: Hypoglycemia Guaifenesin (Robitussin Sf) 200 mg PO Q4H PRN PRN Reason: Cough HCTZ/Losartan Potassium (Hyzaar 100/25) 1 tab PO DAILY [facility] Last Admin: 05/26/18 09:04 Dose: 1 tab Hydralazine HCl (Apresoline) 10 mg SLOW IVP Q4H PRN PRN Reason: SBP > 180 and HR < 70 Dextrose/Water (D5w) 1,000 mls @ 0 mls/hr IV .Q0M PRN PRN Reason: Hypoglycemia Ceftriaxone Sodium 1 gm/ (Sodium Chloride) 100 mls @ 200 mls/hr IVPB Q24HR [facility] Last Admin: 05/26/18 09:21 Dose: 100 mls Insulin Human Lispro (Humalog) 0 units SC .MODERATE SLIDING SC PRN PRN Reason: Moderate Correctional Scale Insulin Human Lispro (Humalog) 0 units SC .BEDTIME SLIDING SC PRN PRN Reason: Bedtime Correctional Scale Loperamide HCl (Imodium) 2 mg PO PRN PRN PRN Reason: Diarrhea/Loose Stools Loratadine (Claritin) 10 mg PO DAILYPRN PRN PRN Reason: Sinus Symptoms Mineral Oil/White Petrolatum (Eucerin Cream) 0 gm TOP BIDPRN PRN PRN Reason: Dry Skin Ondansetron HCl (Zofran Odt) 4 mg PO Q6H PRN PRN Reason: Nausea/Vomiting Ondansetron HCl (Zofran) 4 mg IVP Q6H PRN PRN Reason: Nausea/Vomiting Pantoprazole Sodium (Protonix) 40 mg PO DAILY [facility] Last Admin: 05/26/18 09:05 Dose: 40 mg Senna/Docusate Sodium (Senokot S) 2 tab PO BID PRN PRN Reason: Constipation Last Admin: 05/26/18 09:19 Dose: 2 tab Sodium Chloride ([place] Nasal [place] 0.65%) 0 ml EA NARE QIDPRN PRN PRN Reason: Nasal Congestion Sodium Chloride (Flush - Normal Saline) 10 ml IVF Q12HR [facility] Last Admin: 05/26/18 09:25 Dose: 10 ml Sodium Chloride (Flush - Normal Saline) 10 ml IVF PRN PRN PRN Reason: Saline Flush Tamsulosin HCl (Flomax) 0.4 mg PO HS [facility] Last Admin: 05/25/18 21:06 Dose: 0.4 mg Throat Lozenges (Cepastat Lozenges) 1 shannon PO Q2H PRN PRN Reason: Sore Throat Zolpidem Tartrate (Ambien) 5 mg PO HSPRN PRN PRN Reason: Insomnia Last Admin: 05/25/18 22:14 Dose: 5 mg
[2018-05-26] MEDS ORDERED: Potassium Chloride 20 MEQ TAB PO SCH (09:45)
[2018-05-26] MEDS: Furosemide 40 MG/4 ML VIAL SLOW IVP SCH (14:39)
[2018-05-26] MEDS: Citalopram 20 MG TAB PO SCH (20:14)
[2018-05-26] MEDS: Tamsulosin HCl 0.4 MG CAP PO SCH (20:14)
[2018-05-26] MEDS: Glimepiride 2 MG TAB PO SCH (20:14)
[2018-05-27 06:14] LABS: #Basophils 0.1 thou/uL (0.0-0.2); #Eosinphils 0.4 thou/uL (0.0-0.7); #Lymphocytes 1.5 thou/uL (1.20-3.40); #Monocytes 0.9 thou/uL (0.11-0.59); #Neutrophils 5.9 thou/uL (1.40-6.50); %Basophils 0.7 % (0.0-1.0); %Eosinophils 5.2 % (0.0-10.0); %Lymphocytes 16.6 % (21.0-51.0); %Neutrophils 67.6 % (42.0-75.0); Hemoglobin 10.9 g/dL (14.0-18.0); Mean Corpuscular HGB CONC 32.9 g/dL (32.0-36.0); Mean Corpuscular Hemoglobin 29.2 pg (27.0-31.0); Mean Corpuscular Volume 88.6 fL (78.0-98.0); Mean Platelet Volume 6.6 fL (7.4-10.4); Platelet Count 264 thou/uL (130-400); RBC Distribution Width 12.9 % (11.5-14.5); Red Blood Cell (RBC) Count 3.74 mill/uL (4.70-6.10); White Blood Cell (WBC) Count 8.7 thou/uL (4.8-10.8)
[2018-05-27] MEDS: Furosemide 40 MG/4 ML VIAL SLOW IVP SCH ×2 (06:17→14:20)
[2018-05-27 06:20] LABS: BUN (Urea Nitrogen) 14 mg/dL (8.4-25.7); Calc. Creatinine Clearance 145 mL/min (70-130); Calcium 10.4 mg/dL (7.8-10.44); Estimated GFR-MDRD Greater than 90; Glucose 69 mg/dL (80-115); Magnesium 1.8 mg/dL (1.6-2.6)
[2018-05-27 06:29] LABS: Anion Gap 11 mmol/L (10-20); Chloride 83 mmol/L (98-107); Potassium 3.3 mmol/L (3.5-5.1); Sodium 134 mmol/L (136-145)
[2018-05-27 06:31] LABS: Carbon Dioxide 43 mmol/L (23-31)
[2018-05-27] MEDS: Enoxaparin Sodium 40 MG/0.4 ML SYRINGE SC SCH (08:22)
[2018-05-27] MEDS: cefTRIAXone\\ROCEPHIN 1 GM in Sodium Chloride 0.9% 100 ML IVPB SCH (08:22)
[2018-05-27] MEDS: Ascorbic Acid 500 mg Chewable Tablet PO SCH (08:23)
[2018-05-27] MEDS: Calcium Carbonate 600 MG TAB PO SCH (08:24)
[2018-05-27] MEDS: Amlodipine 10 MG TAB PO SCH (09:00)
--- NOTE | 2018-05-27 09:54 | PDOC.PN ---
- Subjective Encounter Start Date: 05/27/18 Encounter Start Time: 11:30 Subjective: Patient with mild improvement in his left sided weakness, severity -: comes and goes, no problems until middle of last year. - Objective Resuscitation Status - Order Detail: 05/25/18 14:25 Resuscitation Status Routine Resuscitation Status: FULL: Full Resuscitation MAR Reviewed: Yes Vital Signs & Weight: Vital Signs (12 hours) Temp Pulse Resp BP BP Pulse Ox 05/27/18 08:02 111/66 95 05/27/18 07:42 98.2 F 97 22 H 95/58 L 93 L 05/27/18 04:00 97.9 F 87 20 120/76 99 05/27/18 00:48 98.2 F 85 16 113/66 95 Weight Weight 230 lb I&O: 05/26/18 05/27/18 05/28/18 06:59 06:59 06:59 Intake Total 340 1425 200 Output Total 325 4076 Balance 15 -2651 200 Result Diagrams: 05/27/18 05:52 05/27/18 05:52 Additional Labs: Accuchecks 05/27/18 05/27/18 05/26/18 06:18 05:39 20:09 POC Glucose 113 H 62 L 155 H 05/26/18 15:39 POC Glucose 121 H Phys Exam - Physical Examination Constitutional: NAD HEENT: moist MMs Respiratory: no wheezing, no rales, no rhonchi Cardiovascular: RRR Gastrointestinal: soft, positive bowel sounds decreased strenght, especially in left upper and lower extremities 3.5/5 Psychiatric: normal affect, A&O x 3 Dx/Plan (1) Acute on chronic diastolic ACC/AHA stage C congestive heart failure Code(s): I50.33 - ACUTE ON CHRONIC DIASTOLIC (CONGESTIVE) HEART FAILURE Status : Acute (2) Acute respiratory failure with hypoxia Code(s): J96.01 - ACUTE RESPIRATORY FAILURE WITH HYPOXIA Status: Acute Comment: (3) Hypokalemia Code(s): E87.6 - HYPOKALEMIA Status: Acute (4) Hyponatremia Code(s): E87.1 - HYPO-OSMOLALITY AND HYPONATREMIA Status: Acute Comment: (5) Progressive focal motor weakness Code(s): R53.1 - WEAKNESS Status: Acute (6) UTI (urinary tract infection) Status: Acute (7) Anemia, normocytic normochromic Code(s): D64.9 - ANEMIA, UNSPECIFIED Status: Chronic (8) Dyslipidemia Code(s): E78.5 - HYPERLIPIDEMIA, UNSPECIFIED Status: Chronic (9) Hypertension Code(s): I10 - ESSENTIAL (PRIMARY) HYPERTENSION Status: Chronic (10) Obesity (BMI 30-39.9) Code(s): E66.9 - OBESITY, UNSPECIFIED Status: Chronic (11) Pressure ulcer of left buttock, stage 2 Code(s): L89.322 - PRESSURE ULCER OF LEFT BUTTOCK, STAGE 2 Status: Acute - Plan cont current plan of care, continue antibiotics, PT/OT Attempting to get MRI today, looks like Neurology asked for a -: Neurosurgery consult, but didn't put in the order. Order placed. * . - Discharge Day Encounter end time: 11:45
[2018-05-27] MEDS: Losartan/Hydrochlorothiazide 100 mg/25 mg Tablet PO SCH (12:11)
--- NOTE | 2018-05-27 12:50 | CON ---
DATE OF CONSULTATION: ATTENDING PHYSICIAN: Dr. Zachery You. HISTORY OF PRESENT ILLNESS: The patient is a 67-year-old male with a past medical history of diabetes and congestive heart failure, who presented to our facility for left-sided weakness. The patient reports that in mid March, he developed progressive weakness and frequent falling. He was seen in early April by his PCP, Dr. Gupta and started on outpatient physical therapy. The patient reports that his symptoms continued to progress and he suffered a mechanical fall on May 12, 2018. Following that event, he was brought to our facility for further evaluation and found to have acute rhabdomyolysis as well as diastolic congestive heart failure. The patient was treated for these events and underwent physical therapy during his admission. He had some improvement and was discharged to a Swing Bed in [place]. Since his discharge, he has had return in progression with particularly left-sided weakness. He was evaluated there again by the physician on site and sent back to our facility for additional evaluation and likely need for MRI imaging. I am visiting the patient at the bedside. He is awake and alert, in no acute distress. He reports prior to in March, he had no difficulty with ambulation. He is now only able to walk short distances with a walker and is unable to lift his left arm overhead or his left leg off the ground more than a few inches. He denies any bowel or bladder issues. PAST MEDICAL HISTORY: Congestive heart failure, type 2 diabetes, and history of prostate cancer. PAST SURGICAL HISTORY: Lumbar fusion by Dr. Combs many years ago. The patient is unsure of what level left leg fracture repair. FAMILY HISTORY: Noncontributory. ALLERGIES: THE PATIENT HAS NO KNOWN DRUG ALLERGIES. REVIEW OF SYSTEMS: Per HPI. SOCIAL HISTORY: The patient is , lives at home. He does not smoke, drink, or use any drugs. PHYSICAL EXAMINATION: VITAL SIGNS: Temperature is 98.2, heart rate is 97, the patient is 94% on 3.5 L nasal cannula, and blood pressure is 111/66. HEENT: Head, normocephalic and atraumatic. Eyes, PERRLA. Extraocular movements intact. ENT; oral mucosa is pink, intact and moist. The patient has a normal voice. NECK: He has some discomfort with range of motion. Nontender to palpation. CARDIOVASCULAR: Regular rate and rhythm. RESPIRATORY: Symmetric chest expansion. No evidence of dyspnea at this time. MUSCULOSKELETAL: He has good muscle tone to bilateral upper extremities. He does have significant weakness of the left biceps, triceps, and deltoid 2/5. He has also slight weakness in the left hand intrinsics 4/5. He has a decreased triceps jerk or he has an absent triceps or biceps jerk on the left. With regard to the left lower extremity, he also has proximal left leg weakness over the psoas and quadriceps 2/5. He is unable to lift the leg off the bed. He has some weakness with dorsiflexion and plantar flexion as well 4/5. He has a decreased knee jerk and ankle jerk reflex on the left, but these are symmetric. Negative Flori. Negative clonus. NEUROLOGIC: A and O x4. He has normal voice. Significant left-sided weakness per musculoskeletal exam. ASSESSMENT AND PLAN: This is a 67-year-old male, who has had progressive left-sided weakness as well as frequent falls, gradual since March. He has also been evaluated by the medical team. He is undergoing treatment for congestive heart failure and pulmonary edema. There is also questionable concern for underlying pneumonia, and he is currently receiving antibiotics. With regard to his left-sided weakness, I agree with the plan to evaluate with an MRI of the brain and cervical spine without contrast. This will be done under anesthesia, considering the patient's discomfort with lying flat. Once these images are completed, we will review. Dr. You has also made aware of the patient's presentation exam, current condition. He is in agreement with this plan. Job ID: [id number]
--- NOTE | 2018-05-27 13:48 | PQF ---
FRANCISCO JAVIER MITCHELL, CHEIKH BLANCO MD [id number] SURG A- [id number] CLINICAL DOCUMENTATION IMPROVEMENT CLARIFICATION FORM: ICD-10 Updated PLEASE DO AN ADDENDUM TO THE PROGRESS NOTE WITH ANY DOCUMENTATION UPDATES OR ADDITIONS AND CARRY THROUGH TO DC SUMMARY. THANK YOU. DATE: 05/27 ATTN: DR. CHEIKH SINGLETARY Please exercise your independent, professional judgment in responding to the clarification form. Clinical indicators are provided on the bottom of this form for your review. Please check appropriate box(s): ___X____ I (concur) with the Wound Care findings as stated below. [ X ] Pressure Ulcer: (Stage I: Erythema; Stage II: Partial thickness; Stage III : Full thickness; Stage IV: Necrosis to muscle/bone) [ X ] Location: ___Buttock POA: [ X ] Yes [ ] No[ ] Unable to determine Stage (I to IV): ____2___ (Left Right Bilateral N/A ) [ ] Location: POA: [ ] Yes [ ] No[ ] Unable to determine Stage (I to IV): (Left Right Bilateral N/A ) [ ] No pressure ulcer diagnosis [ ] Other diagnosis [ ] Unable to determine In addition, please specify: Present on Admission (POA): [ X ] Yes [ ] No [ ] Unable to determine For continuity of documentation, please document condition throughout progress notes and discharge summary. Thank You. CLINICAL INDICATORS - SIGNS / SYMPTOMS / LABS WOUND CARE CONSULT DOCUMENTATION 05/26: STAGE II PRESSURE ULCER TO BUTTOCK RISK FACTORS: PROGRESSIVE WEAKNESS TO UPPER/LOWER EXTREMITIES UNABLE TO WALK (H&P) TREATMENTS: WOUND CARE CONSULT FERMIN DOOLEY Q2 HRS THANK YOU! Cammy (This form is maintained as a part of the permanent medical record) 2014 [employer]. All Rights Reserved Cammy Duckworth RN, [email or web address] [email or web address] Office: [phone] [facility]
[2018-05-27] MEDS ORDERED: Midazolam HCl 2 mg/2 ml Vial ONE (16:50)
[2018-05-27] MEDS ORDERED: Fentanyl 100 MCG/2 ML VIAL ONE (16:50)
[2018-05-27] MEDS ORDERED: PROPOFOL 200 MG/20 ML VIAL ONE (17:00)
[2018-05-27] MEDS ORDERED: Lidocaine 2% PF 5 ML VIAL ONE (17:00)
[2018-05-27] MEDS ORDERED: Ondansetron PF 4 MG/2 ML Vial ONE (17:00)
[2018-05-27] MEDS ORDERED: PHENYLEPHRINE-NS 100 MCG/ML 10 ML SYRINGE ONE (17:00)
[2018-05-27] MEDS ORDERED: ePHEDrine/0.9% NaCl/PF SYRINGE 50 mg/10 ml ONE (17:00)
[2018-05-27] MEDS ORDERED: SUGAMMADEX SODIUM 500 MG/5 ML VIAL ONE (17:19)
[2018-05-27] MEDS ORDERED: Promethazine HCl 25 MG/ML VIAL IM PRN (19:15)
[2018-05-27] MEDS ORDERED: Promethazine HCl 25 MG/ML VIAL SLOW IVP PRN (19:15)
[2018-05-27] MEDS ORDERED: Ondansetron HCl/PF 4 MG/2 ML Vial IVP PRN (19:15)
--- NOTE | 2018-05-27 20:09 | MRI ---
BRAIN MRI WITHOUT CONTRAST: 05/27/18 COMPARISON: None. HISTORY: Left arm and leg weakness, falls. TECHNIQUE: Multiplanar and multisequence MR imaging of the brain is obtained without contrast. FINDINGS: The axial gradient echo imaging demonstrates no evidence for intracranial hemorrhage. The regional bone marrow signal intensity appears within normal limits. There are a few scattered foci of increased T2 and FLAIR signal within the deep and subcortical white matter suggesting mild small vessel disease. Arterial flow voids at the axial level of the skull appear grossly unremarkable on the T2 weighted im aging. There is small volume fluid layering posteriorly within the nasopharynx. Imaged paranasal sinuses and mastoid air cells demonstrate normal signal intensity. The diffusion weighted imaging demonstrates no acute infarction. IMPRESSION: No acute findings. POS: [facility]
[2018-05-27] MEDS: Citalopram 20 MG TAB PO SCH (20:40)
[2018-05-27] MEDS: Glimepiride 2 MG TAB PO SCH (20:40)
[2018-05-27] MEDS: Tamsulosin HCl 0.4 MG CAP PO SCH (20:40)
--- NOTE | 2018-05-27 22:06 | MRI ---
CERVICAL SPINE MRI WITH AND WITHOUT CONTRAST 05/27/18 COMPARISON: None. HISTORY: Increasing falls with left arm and left leg weakness since January, history of multiple prior falls . TECHNIQUE: Multiplanar and multisequence MR imaging of the cervical spine obtained with and without contrast. FINDINGS: The sagittal STIR imaging demonstrates no focal area of osseous marrow edema to suggest the presence of acute fracture. There is mild degenerative change at the atlantoaxial interspace. The craniocervical and cervicothora cic junction appears intact. There is mild degenerative pannus formation posterior to the dens. No evidence for a prevertebral soft tissue abnormality. C2-3: Mild anterolisthesis noted measuring 3-4 mm. There is mild disc space narrowing with no significant central canal or neural foraminal stenosis. Th ere is bilateral facet and uncovertebral osteophyte formation, left greater than right. Mild bilatera l neural foraminal stenosis, left greater than right. C3-4: Anterolisthesis of C3 on C4 noted, measuring in the 3 mm range. There is disc space narrowing a nd disc desiccation with disc bulge effacing the ventral thecal sac. There is moderate associated jw tral canal stenosis. There is bilateral facet uncovertebral osteophyte formation, left greater than r ight, with fluid signal intensity within the left facet joint. There is moderate right and severe lef t neural foraminal stenosis. C4-5: Disc space narrowing and disc desiccation and disc bulge with partial effacement of the ventral thecal sac and mild central canal stenosis. Mild bilateral facet and uncovertebral osteophyte format ion with no significant neural foraminal stenosis on either side. C5-6: There is disc space narrowing, disc desiccation and mild disc bulge. There is anterior osteophy te formation. Bilateral facet hypertrophy, right greater than left, with associated uncovertebral ost eophyte formation. Moderate right and mild left neural foraminal stenosis. C6-7: There is disc space narrowing, disc desiccation and mild disc bulge with no significant central canal stenosis. Facet and uncovertebral osteophyte formation noted bilaterally with mild left and mo derate right neural foraminal stenosis. C7-T1: Disc desiccation, disc space narrowing and minimal disc bulge with no significant central jaylen l and neural foraminal stenosis. There is a focal area of abnormal increased T2 signal intensity involving the entirety of the cord fr om the axial level of the mid C3 vertebral body through the axial level of the superior aspect of the C4 vertebral body centered at the C3-4 intervertebral disc space. The cord appears mildly expanded i n this region. The gradient echo imaging demonstrates no evidence for hemorrhage within the cord. No additional focus of abnormal cord signal is visualized. This area of cord signal abnormality measures approximately 1.5-2 cm in craniocaudal extent. Postcontrast imaging demonstrates no abnormal enhance ment of the cord in this region. There is no significant enhancement of the vertebral bodies or intervertebral discs either. IMPRESSION: Multilevel degenerative change within the cervical spine, most prominent at the C3-4 level. At the C3 -4 level, the cord demonstrates slight expansion and abnormal increased T2 signal without enhancement . As this is at the area of worst degenerative change, this may represent a focal area of acute edema on the basis of nonhemorrhagic cord contusion given provided history of recent falls. The focal natu re of this abnormality makes transverse myelitis unlikely. The holocord signal abnormality in this re gion makes multiple sclerosis in a patient of this age unlikely. Cord infarction could have a similar appearance but the clinical timeframe of symptoms for months argues against cord infarction. A tumor of the cervical cord is unlikely given the lack of enhancement. Follow up imaging would be the study of choice for further assessment as edema from recent cord contusion would improve with time. POS: [facility]
[2018-05-28] MEDS: Furosemide 40 MG/4 ML VIAL SLOW IVP SCH ×2 (05:57→14:51)
[2018-05-28] MEDS: HYDROcodone/Acetaminophen 5/325 mg Tablet PO PRN ×2 (08:06→21:39)
--- NOTE | 2018-05-28 08:43 | CT ---
CT CERVICAL SPINE WITHOUT CONTRAST: HISTORY: Fall. Pain. The patient has a cervical collar. Evaluate for fracture. COMPARISON: None. FINDINGS: No craniocervical dissociation. Appropriate alignment with the lateral of C1 and C2 as well as the f acets. Intact odontoid process. Mass effect upon the posterior supraglottic layering secondary to medial deviation of both carotid ar teries. Soft tissue neck structures are unremarkable. Upper mediastinum and lung apices do not have any acute pathology or abnormality. There are varying degrees of central canal stenosis and neural foraminal narrowing on the basis of degenerative change. Cervical spine vertebral body height is maintained. There is no fracture. There is 4 mm of anterolisthesis of C2 upon C3, 5.4 mm anterolisthesis of C3 upon C4, 1.2 mm anteroli sthesis of C4 upon C5. Spondylolisthesis is similar to the previous examination. Refer to MRI perfo rmed on 05/27/2018 for further detail. IMPRESSION: 1. No fracture. 2. Spondylolisthesis, likely on the basis of degenerative change. POS: [facility]
[2018-05-28] MEDS: Calcium Carbonate 600 MG TAB PO SCH (09:21)
[2018-05-28] MEDS: Losartan/Hydrochlorothiazide 100 mg/25 mg Tablet PO SCH (09:21)
[2018-05-28] MEDS: Ascorbic Acid 500 mg Chewable Tablet PO SCH (09:22)
[2018-05-28] MEDS: Amlodipine 10 MG TAB PO SCH (09:22)
[2018-05-28] MEDS: cefTRIAXone\\ROCEPHIN 1 GM in Sodium Chloride 0.9% 100 ML IVPB SCH (09:25)
[2018-05-28] MEDS: Enoxaparin Sodium 40 MG/0.4 ML SYRINGE SC SCH (09:26)
--- NOTE | 2018-05-28 09:29 | PDOC.PN ---
- Subjective Encounter Start Date: 05/28/18 Encounter Start Time: 11:00 Subjective: Patient reports mild improvement in strenght. No other complaints. Neurosur -: has him in collar and CT done this AM. - Objective Resuscitation Status - Order Detail: 05/25/18 14:25 Resuscitation Status Routine Resuscitation Status: FULL: Full Resuscitation MAR Reviewed: Yes Vital Signs & Weight: Vital Signs (12 hours) Temp Pulse Resp BP Pulse Ox 05/28/18 08:00 98.2 F 89 18 135/79 96 05/28/18 04:51 98.2 F 94 22 H 103/65 95 05/28/18 00:00 98.5 F 109 H 22 H 104/64 100 Weight Weight 230 lb I&O: 05/27/18 05/28/18 05/29/18 06:59 06:59 06:59 Intake Total 1425 300 Output Total 4076 1775 Balance -6886 -6576 Result Diagrams: 05/27/18 05:52 05/27/18 05:52 Additional Labs: Accuchecks 05/28/18 05/28/18 05/27/18 06:39 05:54 20:33 POC Glucose 97 65 L 122 H 05/27/18 05/27/18 15:00 10:51 POC Glucose 83 107 Phys Exam - Physical Examination Constitutional: NAD HEENT: moist MMs Respiratory: no wheezing, no rales, no rhonchi Cardiovascular: RRR, no significant murmur Gastrointestinal: soft, positive bowel sounds weakness in left arm and leg Psychiatric: normal affect, A&O x 3 Dx/Plan (1) Acute on chronic diastolic ACC/AHA stage C congestive heart failure Code(s): I50.33 - ACUTE ON CHRONIC DIASTOLIC (CONGESTIVE) HEART FAILURE Status : Acute (2) Acute respiratory failure with hypoxia Code(s): J96.01 - ACUTE RESPIRATORY FAILURE WITH HYPOXIA Status: Acute Comment: (3) Hypokalemia Code(s): E87.6 - HYPOKALEMIA Status: Acute (4) Hyponatremia Code(s): E87.1 - HYPO-OSMOLALITY AND HYPONATREMIA Status: Acute Comment: (5) Progressive focal motor weakness Code(s): R53.1 - WEAKNESS Status: Acute Comment: MRI brain/C-spine complete , mild focal edema of cord, possibly from degenerative disease of spine. No infarct/tumor/MS. Await neurosurg recs, then can go to rehab. (6) UTI (urinary tract infection) Status: Acute Comment: UCx negative, will transition to oral cefdinir (7) Anemia, normocytic normochromic Code(s): D64.9 - ANEMIA, UNSPECIFIED Status: Chronic (8) Dyslipidemia Code(s): E78.5 - HYPERLIPIDEMIA, UNSPECIFIED Status: Chronic (9) Hypertension Code(s): I10 - ESSENTIAL (PRIMARY) HYPERTENSION Status: Chronic (10) Obesity (BMI 30-39.9) Code(s): E66.9 - OBESITY, UNSPECIFIED Status: Chronic (11) Pressure ulcer of left buttock, stage 2 Code(s): L89.322 - PRESSURE ULCER OF LEFT BUTTOCK, STAGE 2 Status: Acute - Plan cont current plan of care, continue antibiotics, PT/OT Rehab eval * . - Discharge Day Encounter end time: 11:20
[2018-05-28] MEDS ORDERED: CEFAZOLIN 2 GM/50 ML-DEXTROSE 2 GM in Premix Bag 1 BAG IVPB SCH (13:15)
[2018-05-28] MEDS ORDERED: CEFAZOLIN/Water 2 GM/20 ML SYRINGE SLOW IVP SCH (13:15)
[2018-05-28] MEDS: Citalopram 20 MG TAB PO SCH (20:23)
[2018-05-28] MEDS: Glimepiride 2 MG TAB PO SCH (20:24)
[2018-05-28] MEDS: Tamsulosin HCl 0.4 MG CAP PO SCH (20:24)
[2018-05-28] MEDS: Cefdinir 300 MG CAP PO SCH (20:24)
[2018-05-29] MEDS: Furosemide 40 MG/4 ML VIAL SLOW IVP SCH ×2 (05:32→15:46)
--- NOTE | 2018-05-29 07:44 | PRG ---
DATE OF SERVICE: 05/28/2018 SUBJECTIVE: The patient is seen and examined. I agree with Jaclyn Guaman's evaluation on 05/27/2018. The patient is a 67-year-old man in reasonably good health, who has been having neck pain and difficulty with neck position for many months who for 1 month has had progressive poor balance with falls consistent with cervical myelopathy. He was admitted to the hospital and diagnosed with urinary tract infection and sent to rehab, but then readmitted for progressive decline. He has had at least one significant mechanical fall. Imaging reveals anterolisthesis, which is likely unstable at the C3-C4 level and spinal cord contusion at this level. IMPRESSION AND PLAN: I suspect all the patient's symptoms are coming from the degenerative disease at C3-C4. This is likely demonstrated progressive instability and ultimately spinal cord damage as a result. I am recommending surgical stabilization at C3-C4 by anterior cervical diskectomy and fusion. We discussed the indication, risks, benefits, and alternatives of procedure with the patient and his family and expressed understanding, wished to proceed. This should arrest the progression of his myelopathy, but may not reverse the damage that has already occurred. Postoperatively, he may need rehab or he may be good enough to go home depending on his ambulatory status. We will hold aspirin and Lovenox at this point in preparation for the surgery. I anticipate surgery on Friday. Job ID: [id number]
[2018-05-29] MEDS: Calcium Carbonate 600 MG TAB PO SCH (08:26)
[2018-05-29] MEDS: Losartan/Hydrochlorothiazide 100 mg/25 mg Tablet PO SCH (08:26)
[2018-05-29] MEDS: Cefdinir 300 MG CAP PO SCH ×2 (08:26→21:03)
[2018-05-29] MEDS: Ascorbic Acid 500 mg Chewable Tablet PO SCH (08:26)
[2018-05-29] MEDS: Bisacodyl 5 MG TAB PO PRN (08:27)
[2018-05-29] MEDS: Amlodipine 10 MG TAB PO SCH (08:27)
--- NOTE | 2018-05-29 15:50 | PDOC.PN ---
- Subjective Encounter Start Date: 05/29/18 Encounter Start Time: 15:35 Subjective: f/u for cervical radiculopahty, myelopathy with L-sided weakness, falls -: Feels ok overall. - Objective Resuscitation Status - Order Detail: 05/25/18 14:25 Resuscitation Status Routine Resuscitation Status: FULL: Full Resuscitation MAR Reviewed: Yes Vital Signs & Weight: Vital Signs (12 hours) Temp Pulse Resp BP Pulse Ox 05/29/18 11:27 97.8 F 99 20 91/58 L 97 05/29/18 08:27 99 05/29/18 08:00 98.5 F 99 18 121/68 98 05/29/18 05:10 98.2 F 96 20 109/71 95 Weight Weight 230 lb I&O: 05/28/18 05/29/18 05/30/18 06:59 06:59 06:59 Intake Total 300 640 Output Total 1772024 Balance -1475 -1385 Result Diagrams: 05/27/18 05:52 05/30/18 08:40 Additional Labs: Accuchecks 05/29/18 05/29/18 05/29/18 11:00 06:40 06:05 POC Glucose 145 H 118 H 62 L 05/28/18 05/28/18 20:38 15:35 POC Glucose 126 H 109 Microbiology 05/25/18 16:50 Urine voided Urine Culture - Final Laboratory Tests 05/19/18 05/20/18 05/25/18 06:50 09:19 14:40 Hgb Sodium 134 L 130 L Potassium 4.7 4.5 3.4 L B-Natriuretic Peptide 05/25/18 05/26/18 14:40 09:33 Hgb 10.5 L Sodium Potassium B-Natriuretic Peptide 10.6 Radiology Reviewed by me: Yes (CT C-spine - C3-C4, anterolisthesis ) Phys Exam - Physical Examination Constitutional: NAD HEENT: PERRLA, sclera anicteric, oral pharynx no lesions C-collar in place Neck: no nodes, no JVD, supple, full ROM diminished in bases Respiratory: no wheezing, no rhonchi S1, S2 Cardiovascular: RRR, no significant murmur, no rub, gallop Gastrointestinal: soft, non-tender, no distention, positive bowel sounds Musculoskeletal: pulses present LLE weakness Neurological: normal sensation, moves all 4 limbs Psychiatric: A&O x 3 Skin: normal turgor, cap refill <2 seconds Dx/Plan (1) Cervical myelopathy with cervical radiculopathy Code(s): M47.12 - OTHER SPONDYLOSIS WITH MYELOPATHY, CERVICAL REGION Status: Acute Comment: Acute/subacute, plan for ACDF on 06/01/18, pain control as clinically indicated (2) Acute on chronic diastolic ACC/AHA stage C congestive heart failure Code(s): I50.33 - ACUTE ON CHRONIC DIASTOLIC (CONGESTIVE) HEART FAILURE Status : Suspected Comment: Decrease IV Lasix 40mg daily x 24h then convert to po (3) Hypokalemia Code(s): E87.6 - HYPOKALEMIA Status: Acute Comment: KCL 40meq BID, serial K + monitoring, likely due to Lasix (4) Hyponatremia Code(s): E87.1 - HYPO-OSMOLALITY AND HYPONATREMIA Status: Chronic Comment: Appears chronic when reviewing the medical record (5) Pressure ulcer of left buttock, stage 2 Code(s): L89.322 - PRESSURE ULCER OF LEFT BUTTOCK, STAGE 2 Status: Chronic Comment: POA, OOB/air mattress - Plan plan discussed w/ family, PT/OT, social service agency director, out of bed/ambulate, DVT proph w/SCDs Stable overall -: Continue pain control as clinically indicated -: Decrease Lasix 40mg IV daily -: OOB/PT -: KCL 40meq BID * AM lab: BMP
[2018-05-29] MEDS: Potassium Chloride 20 MEQ TAB PO SCH (18:30)
[2018-05-29] MEDS: Glimepiride 2 MG TAB PO SCH (21:02)
[2018-05-29] MEDS: Tamsulosin HCl 0.4 MG CAP PO SCH (21:03)
[2018-05-29] MEDS: Citalopram 20 MG TAB PO SCH (21:03)
[2018-05-30] MEDS: Amlodipine 10 MG TAB PO SCH (08:50)
[2018-05-30] MEDS: Potassium Chloride 20 MEQ TAB PO SCH ×2 (08:50→16:18)
[2018-05-30] MEDS: Cefdinir 300 MG CAP PO SCH ×2 (08:51→20:22)
[2018-05-30] MEDS: Calcium Carbonate 600 MG TAB PO SCH (08:51)
[2018-05-30] MEDS: Ascorbic Acid 500 mg Chewable Tablet PO SCH (08:51)
[2018-05-30] MEDS: Losartan/Hydrochlorothiazide 100 mg/25 mg Tablet PO SCH (08:52)
[2018-05-30] MEDS ORDERED: Furosemide 40 MG/4 ML VIAL SLOW IVP SCH (09:00)
[2018-05-30 09:06] LABS: BUN (Urea Nitrogen) 22 mg/dL (8.4-25.7); Calc. Creatinine Clearance 136 mL/min (70-130); Calcium 9.8 mg/dL (7.8-10.44); Estimated GFR-MDRD Greater than 90; Glucose 229 mg/dL (80-115)
[2018-05-30 09:15] LABS: Anion Gap 17 mmol/L (10-20); Carbon Dioxide 35 mmol/L (23-31); Chloride 81 mmol/L (98-107); Potassium 3.3 mmol/L (3.5-5.1); Sodium 130 mmol/L (136-145)
--- NOTE | 2018-05-30 15:57 | PDOC.PN ---
- Subjective Encounter Start Date: 05/30/18 Encounter Start Time: 15:55 Subjective: f/u for frequent falls, L-sided weakness with cervical myelopathy. -: Current plans for ACDF on 06/01/18. Feels ok overall. - Objective Resuscitation Status - Order Detail: 05/25/18 14:25 Resuscitation Status Routine Resuscitation Status: FULL: Full Resuscitation MAR Reviewed: Yes Vital Signs & Weight: Vital Signs (12 hours) Temp Pulse Resp BP BP Pulse Ox 05/30/18 12:10 98.4 F 87 18 111/64 97 05/30/18 08:50 100 05/30/18 08:00 93 L 05/30/18 07:28 98.2 F 100 16 118/74 93 L 05/30/18 04:00 98.8 F 102 H 18 121/67 97 Weight Weight 230 lb I&O: 05/29/18 05/30/18 05/31/18 06:59 06:59 06:59 Intake Total 640 Output Total 2024 Balance -1385 Result Diagrams: 05/27/18 05:52 05/30/18 08:40 Additional Labs: Accuchecks 05/30/18 05/30/18 05/29/18 12:14 05:49 20:37 POC Glucose 242 H 125 H 122 H 05/29/18 16:05 POC Glucose 207 H Microbiology 05/25/18 16:50 Urine voided Urine Culture - Final Laboratory Tests 05/19/18 05/20/18 05/25/18 06:50 09:19 14:40 Hgb Sodium 134 L 130 L Potassium 4.7 4.5 3.4 L B-Natriuretic Peptide 05/25/18 05/26/18 05/27/18 14:40 09:33 05:52 Hgb 10.5 L Sodium 134 L Potassium 3.3 L B-Natriuretic Peptide 10.6 Phys Exam - Physical Examination Constitutional: NAD HEENT: PERRLA, sclera anicteric, oral pharynx no lesions C-collar in place Neck: no nodes, no JVD, supple, full ROM diminished in bases Respiratory: no wheezing, no rales, no rhonchi S1, S2 Cardiovascular: RRR, no significant murmur, no rub, gallop Gastrointestinal: soft, non-tender, no distention, positive bowel sounds Musculoskeletal: pulses present, edema present Neurological: normal sensation Psychiatric: A&O x 3 Skin: normal turgor, cap refill <2 seconds Dx/Plan (1) Cervical myelopathy with cervical radiculopathy Code(s): M47.12 - OTHER SPONDYLOSIS WITH MYELOPATHY, CERVICAL REGION Status: Acute Comment: Acute/subacute, plan for ACDF on 06/01/18, pain control as clinically indicated, C-collar (2) Acute on chronic diastolic ACC/AHA stage C congestive heart failure Code(s): I50.33 - ACUTE ON CHRONIC DIASTOLIC (CONGESTIVE) HEART FAILURE Status : Suspected Comment: Stable currently, convert Lasix 40mg po daily (3) Hypokalemia Code(s): E87.6 - HYPOKALEMIA Status: Acute Comment: KCL 40meq BID, serial K + monitoring, likely due to Lasix (4) Hyponatremia Code(s): E87.1 - HYPO-OSMOLALITY AND HYPONATREMIA Status: Chronic Comment: Appears chronic when reviewing the medical record (5) Pressure ulcer of left buttock, stage 2 Code(s): L89.322 - PRESSURE ULCER OF LEFT BUTTOCK, STAGE 2 Status: Chronic Comment: POA, OOB/air mattress - Plan plan discussed w/ family, PT/OT, elementary school social worker, out of bed/ambulate, DVT proph w/SCDs Stable currently -: Continue KCL 40meq BID -: Change Lasix 40mg po daily -: Plan for ACDF on 06/01/18 -: AM lab: BMP, CBC * .
[2018-05-30] MEDS: Tamsulosin HCl 0.4 MG CAP PO SCH (20:22)
[2018-05-30] MEDS: Citalopram 20 MG TAB PO SCH (20:22)
[2018-05-30] MEDS: Glimepiride 2 MG TAB PO SCH (20:22)
[2018-05-31 06:22] LABS: #Eosinphils 0.3 thou/uL (0.0-0.7); #Lymphocytes 1.1 thou/uL (1.20-3.40); #Monocytes 0.9 thou/uL (0.11-0.59); #Neutrophils 9.4 thou/uL (1.40-6.50); %Basophils 0.3 % (0.0-1.0); %Eosinophils 2.6 % (0.0-10.0); %Lymphocytes 9.2 % (21.0-51.0); %Monocytes 7.4 % (0.0-10.0); %Neutrophils 80.5 % (42.0-75.0); Hemoglobin 10.1 g/dL (14.0-18.0); Mean Corpuscular HGB CONC 32.3 g/dL (32.0-36.0); Mean Corpuscular Hemoglobin 28.7 pg (27.0-31.0); Mean Corpuscular Volume 88.7 fL (78.0-98.0); Mean Platelet Volume 7.3 fL (7.4-10.4); Platelet Count 276 thou/uL (130-400); RBC Distribution Width 12.7 % (11.5-14.5); Red Blood Cell (RBC) Count 3.52 mill/uL (4.70-6.10); White Blood Cell (WBC) Count 11.7 thou/uL (4.8-10.8)
[2018-05-31 06:27] LABS: INR-International Normal Ratio 1.1; PTT 29.1 SEC (22.9-36.1); Prothrombin Time 14.5 SEC (12.0-14.7)
[2018-05-31 06:40] LABS: BUN (Urea Nitrogen) 18 mg/dL (8.4-25.7); Calc. Creatinine Clearance 170 mL/min (70-130); Calcium 10.4 mg/dL (7.8-10.44); Estimated GFR-MDRD Greater than 90; Glucose 107 mg/dL (80-115)
[2018-05-31] MEDS: Furosemide 40 MG TAB PO SCH (06:40)
[2018-05-31 06:49] LABS: Anion Gap 16 mmol/L (10-20); Carbon Dioxide 37 mmol/L (23-31); Chloride 84 mmol/L (98-107); Potassium 3.7 mmol/L (3.5-5.1); Sodium 133 mmol/L (136-145)
[2018-05-31] MEDS: Amlodipine 10 MG TAB PO SCH (08:20)
[2018-05-31] MEDS: Potassium Chloride 20 MEQ TAB PO SCH ×2 (08:20→16:47)
[2018-05-31] MEDS: Losartan/Hydrochlorothiazide 100 mg/25 mg Tablet PO SCH (08:20)
[2018-05-31] MEDS: Cefdinir 300 MG CAP PO SCH ×2 (08:20→20:25)
[2018-05-31] MEDS: Ascorbic Acid 500 mg Chewable Tablet PO SCH (08:20)
[2018-05-31] MEDS: Calcium Carbonate 600 MG TAB PO SCH (08:20)
--- NOTE | 2018-05-31 12:54 | PRG ---
DATE OF SERVICE: 05/31/2018 SUBJECTIVE: Mr. Vasquez is in a cervical collar and sitting upright in a bedside chair and eating breakfast this morning. He has C3-C4 instability and myelopathy. The plan is for surgery tomorrow. Consent has been obtained as well. He has multiple medical comorbidities. PREOPERATIVE LABORATORY DATA: He has very subtle elevation in his white blood cell count at 11.7, which I think is nonspecific and nonworrisome. His hemoglobin is 10.1, platelets are 276. His coagulation parameters are within normal limits and his blood sugars well controlled in the 120 to 140 range this morning. His sodium is 133 and improved. He is on free water restriction. I have encouraged him to limit free water intake. The plan is for surgery tomorrow. Job ID: [id number]
--- NOTE | 2018-05-31 15:36 | PDOC.PN ---
- Subjective Encounter Start Date: 05/31/18 Encounter Start Time: 15:34 Subjective: seen & examined at bedside >care d/w in room -: no new complaints - Objective Resuscitation Status - Order Detail: 05/25/18 14:25 Resuscitation Status Routine Resuscitation Status: FULL: Full Resuscitation MAR Reviewed: Yes Vital Signs & Weight: Vital Signs (12 hours) Temp Pulse Resp BP BP Pulse Ox 05/31/18 11:08 98.5 F 106 H 20 108/70 95 05/31/18 08:20 84 05/31/18 08:00 97 05/31/18 07:46 98.4 F 101 H 24 H 97/64 97 05/31/18 04:16 98.4 F 84 20 113/72 98 Weight Weight 230 lb I&O: 05/30/18 05/31/18 06/01/18 06:59 06:59 06:59 Intake Total 850 Output Total 800 700 Balance 50 -700 Result Diagrams: 05/31/18 05:50 05/31/18 05:50 Additional Labs: Accuchecks 05/31/18 05/31/18 05/30/18 11:11 05:51 20:22 POC Glucose 143 H 124 H 160 H 05/30/18 15:50 POC Glucose 121 H Microbiology 05/25/18 16:50 Urine voided Urine Culture - Final Laboratory Tests 05/25/18 05/25/18 05/26/18 14:40 14:40 09:33 Sodium 130 L B-Natriuretic Peptide 11.7 10.6 05/27/18 05/30/18 05/31/18 05:52 08:40 05:50 Sodium 134 L 130 L 133 L B-Natriuretic Peptide Phys Exam - Physical Examination Constitutional: NAD HEENT: PERRLA, moist MMs, sclera anicteric, oral pharynx no lesions cervical collar in place Neck: no nodes, no JVD, supple, full ROM Respiratory: no wheezing, no rales, no rhonchi, clear to auscultation bilateral Cardiovascular: RRR, no significant murmur Gastrointestinal: soft, non-tender, no distention, positive bowel sounds Musculoskeletal: no edema, pulses present Neurological: non-focal, normal sensation, moves all 4 limbs Psychiatric: normal affect, A&O x 3 Skin: no rash Dx/Plan (1) Acute on chronic diastolic ACC/AHA stage C congestive heart failure Code(s): I50.33 - ACUTE ON CHRONIC DIASTOLIC (CONGESTIVE) HEART FAILURE Status : Suspected Comment: Stable currently, convert Lasix 40mg po daily (2) Cervical myelopathy with cervical radiculopathy Code(s): M47.12 - OTHER SPONDYLOSIS WITH MYELOPATHY, CERVICAL REGION Status: Acute Comment: Acute/subacute, plan for ACDF on 06/01/18, pain control as clinically indicated, C-collar (3) Hyponatremia Code(s): E87.1 - HYPO-OSMOLALITY AND HYPONATREMIA Status: Chronic Comment: Appears chronic when reviewing the medical record (4) Hypokalemia Code(s): E87.6 - HYPOKALEMIA Status: Acute Comment: KCL 40meq BID, serial K + monitoring, likely due to Lasix (5) Anemia, normocytic normochromic Code(s): D64.9 - ANEMIA, UNSPECIFIED Status: Chronic (6) Dyslipidemia Code(s): E78.5 - HYPERLIPIDEMIA, UNSPECIFIED Status: Chronic (7) Hypertension Code(s): I10 - ESSENTIAL (PRIMARY) HYPERTENSION Status: Chronic (8) Pressure ulcer of left buttock, stage 2 Code(s): L89.322 - PRESSURE ULCER OF LEFT BUTTOCK, STAGE 2 Status: Chronic Comment: POA, OOB/air mattress - Plan plan discussed w/ family, PT/OT, out of bed/ambulate, DVT proph w/SCDs Cervical laminectomy in am. HD stable -: CHF compensated -: DC HCTZ as a cause of hyponatremia.cont losartan alone.family educated -: AM labs for pre op * . Review of Systems - Review of Systems Constitutional: weakness, malaise. negative: fever, chills, sweats, other Respiratory: negative: Cough, Dry, Shortness of Breath, Hemoptysis, SOB with Excertion, Pleuritic Pain, Sputum, Wheezing Cardiovascular: negative: chest pain, palpitations, orthopnea, paroxysmal nocturnal dyspnea, edema, light headedness, other Gastrointestinal: negative: Nausea, Vomiting, Abdominal Pain, Diarrhea, Constipation, Melena, Hematochezia, Other Genitourinary: negative: Dysuria, Frequency, Incontinence, Hematuria, Retention , Other Musculoskeletal: negative: Neck Pain, Shoulder Pain, Arm Pain, Back Pain, Hand Pain, Leg Pain, Foot Pain, Other Neurological: negative: Weakness, Numbness, Incoordination, Change in Speech, Confusion, Seizures, Other - Medications/Allergies Allergies/Adverse Reactions: Allergies Allergy/AdvReac Type Severity Reaction Status Date / Time No Known Allergies Allergy Verified 05/25/18 08:18 Medications: Current Medications Acetaminophen (Tylenol) 650 mg PO Q4H PRN PRN Reason: Headache/Fever/Mild Pain (1-3) Last Admin: 05/25/18 16:05 Dose: 650 mg Hydrocodone Bitart/Acetaminophen ([place] 5/325) 1 tab PO Q4H PRN PRN Reason: Moderate Pain (4-6) Last Admin: 05/28/18 21:39 Dose: 1 tab Albuterol/Ipratropium (Duoneb) 3 ml NEB [id number] PRN PRN Reason: SOB &/or Wheezing Alprazolam (Xanax) 0.25 mg PO Q8H PRN PRN Reason: Anxiety Amlodipine Besylate (Norvasc) 10 mg PO DAILY [facility] Last Admin: 05/31/18 08:20 Dose: 10 mg Artificial Tears (Tears Naturale) 2 drop EA EYE PRN PRN PRN Reason: Dry Eyes Ascorbic Acid (Vitamin C) 125 mg PO DAILY [facility] Last Admin: 05/31/18 08:20 Dose: 125 mg Bisacodyl (Dulcolax) [address] DAILYPRN PRN PRN Reason: Constipation Bisacodyl (Dulcolax) 10 mg PO DAILYPRN PRN PRN Reason: Constipation Last Admin: 05/29/18 08:27 Dose: 10 mg Calcium Carbonate (Tums) 1,000 mg PO Q4H PRN PRN Reason: Heartburn or Indigestion Calcium Carbonate (Caltrate) 600 mg PO DAILY [facility] Last Admin: 05/31/18 08:20 Dose: 600 mg Cefdinir (Omnicef) 300 mg PO BID [facility] Stop: 05/31/18 21:01 Last Admin: 05/31/18 08:20 Dose: 300 mg Cholecalciferol (Vitamin D3) 2,000 units PO DAILY [facility] Last Admin: 05/31/18 08:21 Dose: 2,000 units Citalopram Hydrobromide (Celexa) 40 mg PO HS [facility] Last Admin: 05/30/18 20:22 Dose: 40 mg Dextrose/Water (Dextrose 50%) 25 gm SLOW IVP PRN PRN PRN Reason: Hypoglycemia Furosemide (Lasix) 40 mg PO DAILY-AC [facility] Last Admin: 05/31/18 06:40 Dose: 40 mg Glimepiride (Amaryl) 2 mg PO HS [facility] Last Admin: 05/30/18 20:22 Dose: Not Given Glucagon (Glucagon) 1 mg IM PRN PRN PRN Reason: Hypoglycemia Guaifenesin (Robitussin Sf) 200 mg PO Q4H PRN PRN Reason: Cough Hydralazine HCl (Apresoline) 10 mg SLOW IVP Q4H PRN PRN Reason: SBP > 180 and HR < 70 Dextrose/Water (D5w) 1,000 mls @ 0 mls/hr IV .Q0M PRN PRN Reason: Hypoglycemia Insulin Human Lispro (Humalog) 0 units SC .MODERATE SLIDING SC PRN PRN Reason: Moderate Correctional Scale Insulin Human Lispro (Humalog) 0 units SC .BEDTIME SLIDING SC PRN PRN Reason: Bedtime Correctional Scale Loperamide HCl (Imodium) 2 mg PO PRN PRN PRN Reason: Diarrhea/Loose Stools Loratadine (Claritin) 10 mg PO DAILYPRN PRN PRN Reason: Sinus Symptoms Losartan Potassium (Cozaar) 100 mg PO DAILY [facility] Mineral Oil/White Petrolatum (Eucerin Cream) 0 gm TOP BIDPRN PRN PRN Reason: Dry Skin Ondansetron HCl (Zofran Odt) 4 mg PO Q6H PRN PRN Reason: Nausea/Vomiting Ondansetron HCl (Zofran) 4 mg IVP Q6H PRN PRN Reason: Nausea/Vomiting Pantoprazole Sodium (Protonix) 40 mg PO DAILY [facility] Last Admin: 05/31/18 08:20 Dose: 40 mg Potassium Chloride (K-Dur) 40 meq PO BID-[facility] Last Admin: 05/31/18 08:20 Dose: 40 meq Senna/Docusate Sodium (Senokot S) 2 tab PO BID PRN PRN Reason: Constipation Last Admin: 05/26/18 09:19 Dose: 2 tab Sodium Chloride ([place] Nasal [place] 0.65%) 0 ml EA NARE QIDPRN PRN PRN Reason: Nasal Congestion Sodium Chloride (Flush - Normal Saline) 10 ml IVF Q12HR [facility] Last Admin: 05/31/18 08:21 Dose: 10 ml Sodium Chloride (Flush - Normal Saline) 10 ml IVF PRN PRN PRN Reason: Saline Flush Last Admin: 05/29/18 05:32 Dose: 10 ml Tamsulosin HCl (Flomax) 0.4 mg PO HS [facility] Last Admin: 05/30/18 20:22 Dose: 0.4 mg Throat Lozenges (Cepastat Lozenges) 1 shannon PO Q2H PRN PRN Reason: Sore Throat Zolpidem Tartrate (Ambien) 5 mg PO HSPRN PRN PRN Reason: Insomnia Last Admin: 05/25/18 22:14 Dose: 5 mg
[2018-05-31] MEDS: Tamsulosin HCl 0.4 MG CAP PO SCH (20:24)
[2018-05-31] MEDS: HumaLOG 300 UNITS/3 ML VIAL SC PRN (20:24)
[2018-05-31] MEDS: Glimepiride 2 MG TAB PO SCH (20:25)
[2018-05-31] MEDS: Citalopram 20 MG TAB PO SCH (20:25)
[2018-06-01] MEDS: Furosemide 40 MG TAB PO SCH (07:03)
[2018-06-01 07:04] LABS: BUN (Urea Nitrogen) 15 mg/dL (8.4-25.7); Calc. Creatinine Clearance 168 mL/min (70-130); Calcium 10.2 mg/dL (7.8-10.44); Estimated GFR-MDRD Greater than 90; Glucose 95 mg/dL (80-115); Magnesium 1.8 mg/dL (1.6-2.6)
[2018-06-01 07:13] LABS: Anion Gap 14 mmol/L (10-20); Carbon Dioxide 37 mmol/L (23-31); Chloride 85 mmol/L (98-107); Sodium 132 mmol/L (136-145)
--- NOTE | 2018-06-01 08:03 | PDOC.PN ---
- Subjective Encounter Start Date: 06/01/18 Encounter Start Time: 08:02 -: old records requested/rev Pt seen and examined, chart reviewed in its entirety, this si my first visit with this patient follow up for cervical radiculopathy Plan to go to OR today with Dr Sharp. No F/C, no N/V/D/C, no CP or SOB All systems reviewed and neg x as above - Objective Resuscitation Status - Order Detail: 05/25/18 14:25 Resuscitation Status Routine Resuscitation Status: FULL: Full Resuscitation MAR Reviewed: Yes Vital Signs & Weight: Vital Signs (12 hours) Temp Pulse Resp BP BP Pulse Ox 06/01/18 04:00 98.5 F 91 16 133/75 98 06/01/18 00:00 98.4 F 89 16 129/73 96 05/31/18 22:16 95 Weight Weight 230 lb I&O: 05/31/18 06/01/18 06/02/18 06:59 06:59 06:59 Intake Total 850 760 500 Output Total 800 1850 600 Balance 50 -1090 -100 Result Diagrams: 05/31/18 05:50 06/01/18 06:30 Additional Labs: Accuchecks 06/01/18 05/31/18 05/31/18 06:15 20:04 15:45 POC Glucose 99 210 H 134 H 05/31/18 11:11 POC Glucose 143 H Radiology Reviewed by me: Yes EKG Reviewed by me: Yes Phys Exam - Physical Examination Constitutional: NAD HEENT: PERRLA, moist MMs, sclera anicteric, oral pharynx no lesions Neck: no nodes, no JVD, supple, full ROM Respiratory: no wheezing, no rales, no rhonchi, clear to auscultation bilateral Cardiovascular: RRR, no significant murmur, no rub Gastrointestinal: soft, non-tender, no distention, positive bowel sounds Musculoskeletal: no edema, pulses present Neurological: non-focal, normal sensation, moves all 4 limbs Lymphatic: no nodes Psychiatric: normal affect, A&O x 3 Skin: no rash, normal turgor, cap refill <2 seconds Dx/Plan (1) Acute respiratory failure with hypoxia Code(s): J96.01 - ACUTE RESPIRATORY FAILURE WITH HYPOXIA Status: Acute Comment: (2) Cervical myelopathy with cervical radiculopathy Code(s): M47.12 - OTHER SPONDYLOSIS WITH MYELOPATHY, CERVICAL REGION Status: Acute Comment: Acute/subacute, plan for ACDF on today with Dr Sharp, pain control as clinically indicated, C-collar (3) Hypokalemia Code(s): E87.6 - HYPOKALEMIA Status: Acute Comment: KCL 40meq BID, serial K + monitoring, likely due to Lasix (4) Progressive focal motor weakness Code(s): R53.1 - WEAKNESS Status: Acute Comment: MRI brain/C-spine complete , mild focal edema of cord, possibly from degenerative disease of spine. No infarct/tumor/MS. Await neurosurg recs, then can go to rehab. (5) UTI (urinary tract infection) Status: Acute Comment: UCx negative, will transition to oral cefdinir (6) Anemia, normocytic normochromic Code(s): D64.9 - ANEMIA, UNSPECIFIED Status: Chronic (7) Dyslipidemia Code(s): E78.5 - HYPERLIPIDEMIA, UNSPECIFIED Status: Chronic (8) Hypertension Code(s): I10 - ESSENTIAL (PRIMARY) HYPERTENSION Status: Chronic (9) Hyponatremia Code(s): E87.1 - HYPO-OSMOLALITY AND HYPONATREMIA Status: Chronic Comment: Appears chronic when reviewing the medical record (10) Obesity (BMI 30-39.9) Code(s): E66.9 - OBESITY, UNSPECIFIED Status: Chronic (11) Pressure ulcer of left buttock, stage 2 Code(s): L89.322 - PRESSURE ULCER OF LEFT BUTTOCK, STAGE 2 Status: Chronic Comment: POA, OOB/air mattress (12) Acute on chronic diastolic ACC/AHA stage C congestive heart failure Code(s): I50.33 - ACUTE ON CHRONIC DIASTOLIC (CONGESTIVE) HEART FAILURE Status : Suspected Comment: Stable currently, convert Lasix 40mg po daily - Plan * .
[2018-06-01] MEDS: Amlodipine 10 MG TAB PO SCH (08:07)
[2018-06-01] MEDS: Losartan 25 MG TAB PO SCH (08:08)
[2018-06-01] MEDS: Ascorbic Acid 500 mg Chewable Tablet PO SCH (08:08)
[2018-06-01] MEDS: Calcium Carbonate 600 MG TAB PO SCH (08:08)
[2018-06-01] MEDS: Potassium Chloride 20 MEQ TAB PO SCH ×2 (08:08→18:41)
[2018-06-01] MEDS ORDERED: CEFAZOLIN 2 GM/50 ML BAG ONE (09:42)
[2018-06-01] MEDS ORDERED: Sodium Chloride 0.9% 10 ML ONE (09:44)
[2018-06-01] MEDS ORDERED: Fentanyl 250 MCG/5 ML VIAL ONE (09:59)
[2018-06-01] MEDS ORDERED: CEFAZOLIN 2 GM/50 ML-DEXTROSE 2 GM in Premix Bag 1 BAG IVPB SCH (10:00)
[2018-06-01] MEDS ORDERED: KETAMINE 100 MG/ML (5ML VIAL) ONE (10:16)
[2018-06-01] MEDS ORDERED: Promethazine HCl 25 MG/ML VIAL SLOW IVP PRN (11:12)
[2018-06-01] MEDS ORDERED: Ondansetron HCl/PF 4 MG/2 ML Vial IVP PRN (11:12)
[2018-06-01] MEDS ORDERED: Promethazine HCl 25 MG/ML VIAL IM PRN (11:12)
[2018-06-01] MEDS ORDERED: SUGAMMADEX SODIUM 200 MG/2 ML VIAL ONE (11:24)
[2018-06-01] MEDS ORDERED: Morphine 4 MG/ML VIAL SLOW IVP PRN (12:12)
[2018-06-01] MEDS ORDERED: Glycopyrrolate 0.2 MG/ML 5 ML SYRINGE ONE (13:57)
[2018-06-01] MEDS ORDERED: PHENYLEPHRINE-NS 100 MCG/ML 10 ML SYRINGE ONE (13:57)
--- NOTE | 2018-06-01 15:11 | OP ---
DATE OF PROCEDURE: 06/01/2018 [place] ROOM OPERATOR: Irena. PROCEDURES PERFORMED: Anterior cervical diskectomy C3-C4, interbody arthrodesis, intervertebral biomechanical device, local morselized autograft, demineralized bone matrix, and anterior titanium instrumentation C3-C4. DESCRIPTION OF PROCEDURE: The patient was brought to the operating room and intubated. He was positioned supine with the head in modest extension on gel-filled chest rolls. An incision was made in the right precervical area and dissected medial to the sternocleidomastoid muscle, identified the anterior cervical spinal and the level was confirmed by x-ray. We placed distraction across C3-C4, debrided the intervertebral disk and completely decompressed the spinal cord. The bony endplates were then decorticated for the purpose of arthrodesis and appropriate-sized intervertebral biomechanical PEEK device was brought on the field and filled with demineralized bone matrix, local morselized autograft, and tapped in place securely at C3-C4. Next, an anterior plate was brought on the field and secured to C3 and C4 using two 14-mm screws at each level. The wound was then extensively irrigated and maximum hemostasis was secured, and the wound was closed in anatomic layers. Job ID: [id number]
[2018-06-01] MEDS: CEFAZOLIN 2 GM/50 ML BAG IVPB SCH (18:41)
[2018-06-01] MEDS: Tamsulosin HCl 0.4 MG CAP PO SCH (20:10)
[2018-06-01] MEDS: Citalopram 20 MG TAB PO SCH (20:10)
[2018-06-01] MEDS: Glimepiride 2 MG TAB PO SCH (20:10)
[2018-06-01] MEDS: HumaLOG 300 UNITS/3 ML VIAL SC PRN (20:12)
[2018-06-02] MEDS: CEFAZOLIN 2 GM/50 ML BAG IVPB SCH (01:38)
[2018-06-02] MEDS: Acetaminophen 325 MG TAB PO PRN (01:38)
[2018-06-02] MEDS: Furosemide 40 MG TAB PO SCH (06:42)
[2018-06-02 06:52] LABS: #Eosinphils 0.2 thou/uL (0.0-0.7); #Lymphocytes 1.1 thou/uL (1.20-3.40); #Monocytes 1.1 thou/uL (0.11-0.59); %Basophils 0.4 % (0.0-1.0); %Eosinophils 2.1 % (0.0-10.0); %Lymphocytes 9.5 % (21.0-51.0); %Monocytes 9.8 % (0.0-10.0); %Neutrophils 78.2 % (42.0-75.0); Hemoglobin 9.9 g/dL (14.0-18.0); Mean Corpuscular HGB CONC 32.5 g/dL (32.0-36.0); Mean Corpuscular Hemoglobin 28.6 pg (27.0-31.0); Mean Corpuscular Volume 88.2 fL (78.0-98.0); Mean Platelet Volume 6.9 fL (7.4-10.4); Platelet Count 270 thou/uL (130-400); RBC Distribution Width 12.6 % (11.5-14.5); Red Blood Cell (RBC) Count 3.47 mill/uL (4.70-6.10); White Blood Cell (WBC) Count 11.6 thou/uL (4.8-10.8)
[2018-06-02 07:12] LABS: Anion Gap 13 mmol/L (10-20); BUN (Urea Nitrogen) 17 mg/dL (8.4-25.7); Calc. Creatinine Clearance 145 mL/min (70-130); Calcium 9.8 mg/dL (7.8-10.44); Carbon Dioxide 37 mmol/L (23-31); Chloride 84 mmol/L (98-107); Estimated GFR-MDRD Greater than 90; Glucose 65 mg/dL (80-115); Magnesium 1.5 mg/dL (1.6-2.6); Sodium 130 mmol/L (136-145)
--- NOTE | 2018-06-02 08:01 | PRG ---
DATE OF SERVICE: 06/02/2018 SUBJECTIVE: The patient is a 67-year-old male status post C3-C4 ACDF for cervical stenosis and cord contusion. Following the surgery, he was transitioned back to the [facility] floor, where his pain has been well controlled with p.o. medications, he is tolerating regular diet, and voiding appropriately. He reports he has already had improved seizures and strength on the left side. The patient is awake and alert, in no acute distress. Sitting up beside the bed this morning. He has free active range of motion on the right side and 5/5 strength throughout. He does have improved left-sided strength and is now able to slightly lift the arm midway to his side. He is also able to slightly lift the leg off the bed. The patient appears to be healing well on postoperative day #1. I anticipate that he will need inpatient rehabilitation and he is ready for discharge to the facility at any point in time. We will defer remainder of medical issues to the medical team. Job ID: [id number]
[2018-06-02] MEDS: Potassium Chloride 20 MEQ TAB PO SCH (08:45)
[2018-06-02] MEDS: Ascorbic Acid 500 mg Chewable Tablet PO SCH (08:46)
[2018-06-02] MEDS: Calcium Carbonate 600 MG TAB PO SCH (08:46)
[2018-06-02] MEDS: Losartan 25 MG TAB PO SCH (08:46)
[2018-06-02] MEDS: Amlodipine 10 MG TAB PO SCH (08:46)
--- NOTE | 2018-06-02 10:18 | DIS ---
DATE OF ADMISSION: 05/25/2018 DATE OF DISCHARGE: 06/02/2018 PRIMARY CARE PHYSICIAN: Haris Gupta MD DISCHARGE DIAGNOSES: 1. Cervical radiculopathy, status post anterior cervical diskectomy and fusion. 2. Global weakness. 3. Cervical myelopathy and cervical radiculopathy. 4. Hyperkalemia. 5. Acute respiratory failure with hypoxia, resolved. 6. Urinary tract infection. 7. Normocytic/normochromic anemia. 8. Hyperlipidemia. 9. Hypertension, essential. 10. Hyponatremia, chronic. 11. Obesity. 12. Left buttock stage II pressure ulcer, present on admission. 13. Acute on chronic diastolic congestive heart failure, acute phase resolved, chronic stage C. CONSULTATIONS: Neurosurgery, Dr. Zachery You. PROCEDURES: Anterior cervical diskectomy and fusion on 06/01/[address] Zachery You. HISTORY AND PHYSICAL: Mr. Vasquez is a 67-year-old gentleman, who presented to the emergency department on 05/25/2018 for left upper and lower extremity weakness, and workup in the ER revealed UTI and cervical radiculopathy. He was subsequently admitted to the hospital. HOSPITAL COURSE: The patient was seen and examined by Dr. Lutz and placed on inpatient status. Neurosurgery was consulted and was seen on 05/27. Medical issues were improved. He was watched over the weekend and on 06/01/2018 was taken to the operating room for anterior cervical diskectomy and fusion. He was approved for inpatient rehabilitation on 06/02 and was stable for discharge. PHYSICAL EXAMINATION: The patient was seen and examined on day of discharge. Discharge plan and disposition were discussed with the patient's [id number] at the bedside. DISCHARGE MEDICATIONS: Please see medicine reconciliation sheet. His losartan/hydrochlorothiazide was stopped. He was transitioned to Lasix and losartan separately. FOLLOWUP APPOINTMENTS: 1. Primary care physician within a week. 2. Dr. You per his clinic. DISCHARGE CONDITION: Stable. DISPOSITION: Transferred to [facility] for PT and OT. DISCHARGE ACTIVITY: Per Cardiopulmonary and Neurosurgical limitations. Job ID: [id number]
[2018-06-02 12:16] VITALS: BP 128/74; TEMP 98.3
== END 2018-06-02 13:52 | DRG 471 ==
LOC: SURG A 13:26
PROVIDERS: ADMIT Internal Medicine; ATTEND Internal Medicine
PROC: 0RG10A0 Fusion of Cervical Vertebral Joint with Interbody Fusion Device, Anterior Approach, Anterior Column, Open Approach (ICD-10-PCS; principal; 2018-06-01)
PROC: 0RB30ZZ Excision of Cervical Vertebral Disc, Open Approach (ICD-10-PCS; 2018-06-01)
PROC: 00NW0ZZ Release Cervical Spinal Cord, Open Approach (ICD-10-PCS; 2018-06-01)
DX: M47.12 Other spondylosis with myelopathy, cervical region (principal); J96.01 Acute respiratory failure with hypoxia; I50.33 Acute on chronic diastolic (congestive) heart failure; E87.1 Hypo-osmolality and hyponatremia; N39.0 Urinary tract infection, site not specified; I11.0 Hypertensive heart disease with heart failure; E11.9 Type 2 diabetes mellitus without complications; I77.6 Arteritis, unspecified; G58.9 Mononeuropathy, unspecified; F41.9 Anxiety disorder, unspecified; F32.9 Major depressive disorder, single episode, unspecified; K21.9 Gastro-esophageal reflux disease without esophagitis; N40.0 Benign prostatic hyperplasia without lower urinary tract symptoms; D50.9 Iron deficiency anemia, unspecified; E87.6 Hypokalemia; E66.9 Obesity, unspecified; Z68.35 Body mass index [BMI] 35.0-35.9, adult; L89.322 Pressure ulcer of left buttock, stage 2; Z79.82 Long term (current) use of aspirin; Z85.46 Personal history of malignant neoplasm of prostate; Z82.49 Family history of ischemic heart disease and other diseases of the circulatory system
CPT/HCPCS: 36415; 36416; 70551; 71045; 72125; 72156; 76000; 80048; 80053; 81001; 82550; 83735; 83880; 84484; 85025; 85610; 85652; 85730; 86140; 87086; C1713; C1776; J0696; J1650; J1940; J2001; J2250; J2405; J2704; J3010; J3490; J7050

== ENCOUNTER 2018-06-05 07:38 | Inpatient (IN) | payer MEDICARE ==
[2018-06-05 08:19] LABS: #Eosinphils 0.3 thou/uL (0.0-0.7); #Lymphocytes 0.9 thou/uL (1.20-3.40); #Monocytes 0.9 thou/uL (0.11-0.59); #Neutrophils 5.2 thou/uL (1.40-6.50); %Basophils 0.3 % (0.0-1.0); %Lymphocytes 12.8 % (21.0-51.0); %Monocytes 11.7 % (0.0-10.0); %Neutrophils 71.2 % (42.0-75.0); Hemoglobin 10.5 g/dL (14.0-18.0); Mean Corpuscular Hemoglobin 28.3 pg (27.0-31.0); Mean Corpuscular Volume 88.6 fL (78.0-98.0); Mean Platelet Volume 6.8 fL (7.4-10.4); Platelet Count 331 thou/uL (130-400); RBC Distribution Width 12.4 % (11.5-14.5); Red Blood Cell (RBC) Count 3.71 mill/uL (4.70-6.10); White Blood Cell (WBC) Count 7.3 thou/uL (4.8-10.8)
[2018-06-05 08:39] LABS: ALT (SGPT) 24 U/L (8-55); AST (SGOT) 35 U/L (5-34); Albumin 3.4 g/dL (3.4-4.8); Alkaline Phosphatase 81 U/L (40-150); BUN (Urea Nitrogen) 10 mg/dL (8.4-25.7); Bilirubin, Total 0.4 mg/dL (0.2-1.2); Calc. Creatinine Clearance 0 mL/min (70-130); Calcium 9.3 mg/dL (7.8-10.44); Estimated GFR-MDRD Greater than 90; Globulin 2.8 g/dL (2.4-3.5); Glucose 106 mg/dL (80-115); Protein, Total 6.2 g/dL (5.8-8.1)
[2018-06-05 08:48] LABS: Anion Gap 19 mmol/L (10-20); Carbon Dioxide 34 mmol/L (23-31); Chloride 83 mmol/L (98-107); Potassium 3.5 mmol/L (3.5-5.1); Sodium 132 mmol/L (136-145)
--- NOTE | 2018-06-05 09:02 | CT ---
CTA CHEST WITH CONTRAST WITH 3D VOLUME RENDERING: Date: 06/05/18 Comparison made to 05/12/18 exam. INDICATION: Dyspnea. FINDINGS: There is prominent volume of the pulmonary arteries, which can be seen in the setting of sequelae fro m pulmonary artery hypertension. Correlate clinically. There is diffuse vascular calcification. No ev idence of a significant filling defect of the pulmonary trunk, main pulmonary arteries, or proximal s egmental branches of the bilateral pulmonary arteries. There is bilateral consolidation of the pulmon tram parenchyma containing air bronchograms, indicative of multifocal bilateral pneumonia. No evidence of effusion. There is no pneumothorax. No thoracic adenopathy. Low attenuation of the imaged hepatic parenchyma may relate to hepatic steatosis. This could be further assessed with liver function enzym es. There is prominence of the cardiac chambers. IMPRESSION: 1. Multifocal bilateral consolidation indicative of atypical bilateral pneumonia. Correlate clinical ly. 2. No large, central pulmonary embolus. 3. Findings which may be related to sequelae from pulmonary artery hypertension. 4. Diffuse vascular disease. POS: C
--- NOTE | 2018-06-05 09:12 | CT ---
CT OF THE ABDOMEN AND PELVIS WITH CONTGRAST: Date: 06/05/18 COMPARISON: None. HISTORY: Prostate cancer with shortness of breath. Evaluate for metastatic disease. TECHNIQUE: Multiple contiguous axial images were obtained in a CT of the abdomen and pelvis with contrast. Sagit rambo and coronal reformats were performed. FINDINGS: There are calcifications in the gallbladder. The liver, kidneys, adrenal glands, spleen, and pancreas are unremarkable. No free air, free fluid, or stranding changes are seen in the abdomen or pelvis. The patient has surgical clips near the prostate and the prostate appears to have been removed. Large and small bowel are unremarkable. The appendix is unremarkable. No abdominal or pelvic lymphadenopat hy seen. Atherosclerotic calcifications are seen in the aorta. Degenerative changes and postsurgical changes are seen in the spine. There are healed left pelvic fra ctures. Multiple remote left rib fractures are also seen. There is a 2.1 cm fat-containing umbilical hernia. Significant atelectasis is seen in both lung bases. IMPRESSION: 1. No evidence of intra-abdominal/pelvic recurrent/metastatic disease. 2. Significant bibasilar atelectasis. 3. Hiatal hernia. 4. Cholelithiasis. POS: [facility]
[2018-06-05] MEDS ORDERED: Piperacillin/Tazobactam 4.5 GM VIAL ONE (09:24)
--- NOTE | 2018-06-05 09:38 | ULT ---
LEFT LOWER EXTREMITY VENOUS DOPPLER WITH SPECTRAL ANALYSIS AND COLOR FLOW EVALUATION: DATE: 06/05/2018. HISTORY: Left lower extremity swelling/edema. Dyspnea. Shortness of breath worse when lying supine. FINDINGS: George scale, color flow, Doppler evaluation, and spectral analysis of the left lower extremity venous structures is performed with 2D imaging. The left lower extremity common femoral, superficial femora l, popliteal, posterior tibial, most proximal, greater saphenous, and profunda femoral veins are imag ed. There is normal lumen compressibility, flow, and augmentation in the visualized deep venous structure s of the left lower extremity. IMPRESSION: No evidence of a deep vein thrombosis involving the visualized deep venous structures left lower extr emity. POS: SAMANTHA
[2018-06-05 09:55] LABS: Analyzer IN Cardio ER; Calcium, Ionized 1.15 mmol/L (1.12-1.30); Carboxyhemoglobin (COHb) 0.4 gm% (0.0-3.0); Hemoglobin (Hb) 11.2 g/dL (14.0-18.0); Potassium - ABG Lab 3.49 mmol/L (3.70-5.30); pH, Arterial 7.36 (7.35-7.45)
[2018-06-05 09:56] LABS: O2 Tension (PaO2) 49.9 mmHg (> 80.0)
[2018-06-05 09:57] LABS: Puncture Site LRA
[2018-06-05] MEDS ORDERED: ISOVUE-370 76%-LOCM 1 ML ONE (11:22)
[2018-06-05] MEDS ORDERED: Dextrose 50% Abboject 50 ML SYRINGE SLOW IVP PRN (11:35)
[2018-06-05] MEDS ORDERED: HumaLOG 300 UNITS/3 ML VIAL SC PRN ×2 (11:35)
[2018-06-05] MEDS ORDERED: Dextrose 5% in Water 1,000 ML IV PRN (11:35)
[2018-06-05] MEDS ORDERED: Acetaminophen 325 MG TAB PO PRN (11:36)
[2018-06-05] MEDS ORDERED: Ondansetron PF 4 MG/2 ML Vial IVP PRN (11:36)
[2018-06-05] MEDS ORDERED: methylPREDNISolone Sod Succ/PF 125 MG/2 ML VIAL IVP STA (11:38)
[2018-06-05] MEDS ORDERED: Morphine 2 MG/ML SYRINGE ONE (11:42)
--- NOTE | 2018-06-05 11:50 | PDOC.EVN ---
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 ? repeat Echo, CT Chest shows findings of RVSP - will avoid heparin or lovenox as if this is wegeners patient could be at risk for pulmonary hemorrhage, will give SCDs for DVT ppx - PRN medications - family wish to be a full code, however, they're discussing changing to DNR as this was advised given chronic decline in patient's condition - case and plan d/w patient's famliy at length, they understand and agree with this plan.
[2018-06-05] MEDS ORDERED: Lorazepam 2 MG/ML VIAL ONE (11:55)
[2018-06-05] MEDS ORDERED: Lorazepam 2 MG/ML VIAL SLOW IVP SCH (12:00)
[2018-06-05 12:04] LABS: Troponin I Less than 0.010 ng/mL (< 0.028)
--- NOTE | 2018-06-05 12:29 | HP ---
CHIEF COMPLAINT: Shortness of breath. HISTORY OF PRESENT ILLNESS: This is a 67-year-old male, who has been seen in the ER due to worsening shortness of breath. The patient has an extensive history having visited multiple subspecialties in the past ranging from Internal Medicine, Cardiology, Pulmonary, recently General Surgery since the last six months. Family at bedside. Daughter is a nurse giving proper history. States that her father apparently has been having a significant decline over the last six months with shortness of breath and difficulty breathing. The patient recently had a C3-C4 spinal surgery done toward the end of the year in 2017, last week, was when he had the evaluation done. The surgery recently being performed on June 01, approximately four or five days ago. The patient has been having worsening shortness of breath since then, unable to tolerate any form of medical therapy. Does not use oxygen or anything at home chronically. The patient does not have a smoking history, nor was he ever exposed to secondhand smoke. Family denies any history of cystic fibrosis. States that they have seen multiple subspecialists prior and had an autoimmune workup, but they were not aware of the results of the autoimmune panel. The patient apparently was not able to converse or communicate and was very short of breath when he came to the ER, started on the BiPAP. Of note, the daughter states that in the past when he was on BiPAP, the patient tended to fight the BiPAP machine; however, at this time around, he was not doing that at all. Family also notes that he has had some left lower extremity swelling and denies any other associated symptoms or complaints. No alleviating or aggravating factors. This is the first time that the patient has had this sort of a terrible episode as far as symptoms are concerned. ALLERGIES: NO KNOWN DRUG ALLERGIES. HOME MEDICATIONS: See MAR. PAST MEDICAL HISTORY: Positive for diabetes, hypertension, obesity as well as C3-C4 radiculopathy. FAMILY HISTORY: Noncontributory. SOCIAL HISTORY: No smoking. No drinking. PHYSICAL EXAMINATION: VITAL SIGNS: Blood pressure is 85/66, heart rate of 114, respiratory rate of 20 , saturations 100% on BiPAP. GENERAL: The patient appears in significant discomfort leading forward to breathe with coarse breath sounds. HEENT: Pupils are equal, round, reactive to light and accommodation. Extraocular muscles intact. Oral cavity appears moist and pink. NECK: Supple, mobile, nontender, thyroid appreciated. PULMONARY: Inspiratory wheezing noted. Bilateral lower lobe crackles also noted. Increased AP diameter noted. Respiratory distress noted. Tachypnea. CARDIOVASCULAR: Tachycardia, S1 and S2, distant heart sounds. Faint murmur possible, but not sure. ABDOMEN: Positive bowel sounds. Soft, nontender, and rotund. EXTREMITIES: 1+ pitting edema in left lower extremity, otherwise no edema in the right lower extremity. 2+ peripheral pulses bilaterally in all the extremities. NEUROLOGIC: The patient is alert and oriented x3, however, appears very fatigued. Does answer questions appropriately. LABORATORY DATA: CBC within normal limits. ABG shows a pH of 7.36, pCO2 of 84 , pO2 of 50. BMP shows a sodium of 132, bicarb level of 34, otherwise within normal limits. The patient had an ultrasound done of the lower extremity to rule out of any DVT there. CT of the chest was also done, which showed multifocal bilateral consolidation. No emboli noted. Findings suggestive of pulmonary hypertension, diffuse vascular disease also noted. The patient also had a CT scan of the abdomen and pelvis performed, which showed no evidence of metastatic disease, hiatal hernia, and basilar atelectasis. 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 2. Shortness of breath. 3. Hypercarbia with hypoxia, metabolic acidosis with metabolic alkalosis. 4. Hypertension. 5. Diabetes. 6. Obesity. PLAN: - At this point in time, we will keep the patient on a BiPAP, transferred to the ICU. Consultations to Cardiology and Pulmonology. - We will hold off on antibiotics as I am not convinced that this may be pneumonia and bilateral lower lobe infiltrates appeared to be more suggestive of inflammation, possibly autoimmune vasculitis, specifically Lesia's. The patient does have a positive history of antiproteinase 3. - Blood pressure appears to be dropping. We will provide the patient with 500 mL bolus of normal saline, then provide normal saline at 100 mL an hour. - We will get an echocardiogram as well to evaluate for cardiopulmonary function as well as right ventricular pressures. The patient may have a significant component of pulmonary hypertension given his significantly decreased lung volume. -. We will give the patient steroids as well. - Continue BiPAP as noted earlier. We will re-evaluate the level of antiproteinase 3. - If this is indeed Lesia granulomatosis, he may need to follow up with manager product marketing outpatient and a advanced manufacturing vice president as well for possible usage of Cytoxan or cyclosporine or mycophenolate mofetil or any other low-dose chemo regimen for his medical problems. Given that he has had a significant decline over the last six months, prognosis appears guarded. Family at this point wished for the patient to be a full code, but they do understand that if the patient codes that the probability of him going back to normal is not very high given that is a chronic condition and worsening in nature and the patient has significantly low lung volumes on CT scan and imaging studies. - Case and plan were discussed with the patient's daughter as well as at length. They understand and agree with this plan. Job ID: [id number] MTDD
[2018-06-05] MEDS ORDERED: Morphine 4 MG/ML VIAL SLOW IVP SCH (12:30)
[2018-06-05 12:44] LABS: Actual Bicarbonate (HCO3a) 40.1 mEq/L (22-28); Analyzer IN Cardio ER; Base Excess (BEa) 12.1 mEq/L (-2.0 to +3.0); Calcium, Ionized 1.14 mmol/L (1.12-1.30); Carboxyhemoglobin (COHb) 0.2 gm% (0.0-3.0); Hemoglobin (Hb) 10.7 g/dL (14.0-18.0); O2 Tension (PaO2) 69.8 mmHg (> 80.0); Potassium - ABG Lab 3.79 mmol/L (3.70-5.30); pH, Arterial 7.35 (7.35-7.45)
[2018-06-05 12:48] LABS: CO2 Tension 73.6 mmHg (35.0-45.0); Puncture Site LRA
[2018-06-05 14:01] LABS: Troponin I Less than 0.010 ng/mL (< 0.028)
[2018-06-05 14:33] LABS: EliA Vaculitis New Method **** NEW METHOD ****; Proteinase 3 (PR3) Ab 1.7 U/mL (<7 Negative)
[2018-06-05] MEDS ORDERED: Atropine Sulfate 1 mg/10 ml Syringe ONE (17:01)
[2018-06-05 18:29] VITALS: BMI 32.8
[2018-06-05] MEDS: Sodium Chloride 0.9% 1,000 ML IV SCH ×2 (18:54→23:28)
[2018-06-05] MEDS: Furosemide 40 MG/4 ML VIAL SLOW IVP SCH (18:54)
[2018-06-05] MEDS: Morphine 2 MG/ML SYRINGE SLOW IVP PRN ×3 (19:18→23:51)
[2018-06-05] MEDS: Cefepime 1 GM in Sodium Chloride 0.9% 100 ML IVPB SCH (21:06)
[2018-06-06] MEDS ORDERED: Morphine 2 MG/ML SYRINGE SLOW IVP SCH (00:30)
[2018-06-06] MEDS: Morphine 2 MG/ML SYRINGE SLOW IVP PRN ×4 (02:11→07:59)
[2018-06-06 03:58] VITALS: TEMP 99
[2018-06-06] MEDS: Furosemide 40 MG/4 ML VIAL SLOW IVP SCH ×3 (05:53→18:09)
[2018-06-06 06:27] LABS: #Eosinphils 0.1 thou/uL (0.0-0.7); #Lymphocytes 0.6 thou/uL (1.20-3.40); #Monocytes 0.9 thou/uL (0.11-0.59); #Neutrophils 6.5 thou/uL (1.40-6.50); %Basophils 0.3 % (0.0-1.0); %Eosinophils 1.6 % (0.0-10.0); %Lymphocytes 7.4 % (21.0-51.0); %Monocytes 10.9 % (0.0-10.0); %Neutrophils 79.9 % (42.0-75.0); Hemoglobin 10.2 g/dL (14.0-18.0); Mean Corpuscular HGB CONC 31.1 g/dL (32.0-36.0); Mean Corpuscular Hemoglobin 28.5 pg (27.0-31.0); Mean Corpuscular Volume 91.7 fL (78.0-98.0); Mean Platelet Volume 6.7 fL (7.4-10.4); Platelet Count 321 thou/uL (130-400); RBC Distribution Width 12.3 % (11.5-14.5); Red Blood Cell (RBC) Count 3.58 mill/uL (4.70-6.10); White Blood Cell (WBC) Count 8.2 thou/uL (4.8-10.8)
[2018-06-06 06:38] LABS: BUN (Urea Nitrogen) 9 mg/dL (8.4-25.7); Calc. Creatinine Clearance 172 mL/min (70-130); Calcium 9.4 mg/dL (7.8-10.44); Estimated GFR-MDRD Greater than 90; Glucose 73 mg/dL (80-115)
[2018-06-06 06:47] LABS: Chloride 87 mmol/L (98-107); Potassium 4.2 mmol/L (3.5-5.1); Sodium 135 mmol/L (136-145)
[2018-06-06 06:49] LABS: Anion Gap 13 mmol/L (10-20); Carbon Dioxide 39 mmol/L (23-31)
[2018-06-06] MEDS ORDERED: cefTRIAXone\\ROCEPHIN 1 GM in Sodium Chloride 0.9% 100 ML IVPB SCH (08:30)
[2018-06-06] MEDS ORDERED: Azithromycin 500 MG in Sodium Chloride 0.9% 250 ML 250 ML IVPB SCH (08:30)
--- NOTE | 2018-06-06 08:38 | RAD ---
[facility] FRONTAL CHEST RADIOGRAPH: DATE: 06/06/2018. COMPARISON: 05/13/2018. HISTORY: Short of breath. FINDINGS: Detailed assessment is limited secondary to body habitus, shallow inspiration, rotation to the right, and portable technique. There is prominence of the bilateral hilar shadows in the right paratrachea l region which could signify underlying lymphadenopathy, vascular prominence, and/or mediastinal fat. There is dense opacity within both lung bases suggesting a combination of bibasilar consolidation/c ollapse and/or pleural fluid. IMPRESSION: Bibasilar density. Findings most consistent with infectious pneumonitis/aspiration and/or edema. Fo llowup to resolution advised. POS: [facility]
[2018-06-06] MEDS ORDERED: Artificial Tears 18 DROP/0.9 ML EA EYE PRN (08:56)
--- NOTE | 2018-06-06 08:59 | PDOC.PN ---
- Subjective Encounter Start Date: 06/06/18 Encounter Start Time: 08:58 Patient seen and examined, family at bedside, they state that th epatient has had a steady decline over the past few months and overnight had a bradycardia episodes in the 30s, the patient per family continues to breath in a labored fashion. Family stating they'd like to have a hospice consultation and do not want to see a hospital manager or have further studies done. - Objective Resuscitation Status - Order Detail: 06/05/18 11:36 Resuscitation Status Routine Resuscitation Status: DNAR: NO Resuscitation Discussed with: Son who is MPONoemi Vital Signs & Weight: Vital Signs (12 hours) Temp Pulse Resp BP Pulse Ox 06/06/18 08:08 100 06/06/18 08:00 113 H 16 107/55 L 100 06/06/18 03:00 99.0 F 115 H 28 H 108/50 L 96 06/06/18 00:00 120 H 32 H 106/53 L 96 Weight Weight 229 lb I&O: 06/05/18 06/06/18 06/07/18 06:59 06:59 06:59 Intake Total 100 Output Total 1 Balance 99 Result Diagrams: 06/06/18 05:36 06/06/18 05:36 Phys Exam - Physical Examination respiratory distress HEENT: PERRLA, moist MMs, sclera anicteric Neck: no nodes, no JVD, supple +inspiratory wheezing increased AP diameter Cardiovascular: no significant murmur, no rub tachycardia Gastrointestinal: soft, non-tender, no distention Musculoskeletal: pulses present, edema present (trace) Dx/Plan (1) Urinary retention Code(s): R33.9 - RETENTION OF URINE, UNSPECIFIED Status: Acute (2) Metabolic alkalosis with respiratory acidosis Code(s): E87.4 - MIXED DISORDER OF ACID-BASE BALANCE Status: Acute (3) Acute respiratory failure with hypoxia Code(s): J96.01 - ACUTE RESPIRATORY FAILURE WITH HYPOXIA Status: Acute Comment: (4) Dyslipidemia Code(s): E78.5 - HYPERLIPIDEMIA, UNSPECIFIED Status: Chronic (5) Hypertension Code(s): I10 - ESSENTIAL (PRIMARY) HYPERTENSION Status: Chronic - Plan * clinically patient doing very poorly, long discussion held with family, they would prefer hospice care for now * will place consult to hospice, family wants to go to [facility], * place [facility] for obstruction/retention * will also start roxanol + scopolamine patch and PRN eye drops, DC IV morphine * recommend inpatient hospice, will await to see if he qualifies * CM consulted to help with arrangements, hospice consultation placed * DC all labs, DC cardio evaluation, DC echo * case and plan d/w patient's family at length, they understand and agree with this plan.
[2018-06-06] MEDS ORDERED: methylPREDNISolone Sod Succ/PF 125 MG/2 ML VIAL IVP SCH (09:00)
[2018-06-06] MEDS ORDERED: Scopolamine 1.5 mg/72 hour Patch TD SCH (10:00)
[2018-06-06] MEDS: Morphine 10 MG/0.5 ML ORAL SYRINGE SL PRN ×5 (10:03→23:14)
[2018-06-06] MEDS ORDERED: Acetaminophen 650 MG Suppository PR SCH (10:45)
--- NOTE | 2018-06-06 10:56 | PRG ---
DATE OF SERVICE: 06/06/2018 SUBJECTIVE: This morning, he was given some morphine. He is on a nonrebreather. OBJECTIVE: VITAL SIGNS: Saturations 100%, pulse 113, temperature 99, and blood pressure 107/55. Family is at the bedside, they made him a DNR. He is getting Hospice to see him today. CHEST: Decreased breath sounds without any wheezing. CARDIAC: Sinus tach. ABDOMEN: Soft. LABORATORY DATA: His white count was 8000 and H and H 10 and 32. His lytes were normal. ASSESSMENT: Respiratory failure, bilateral pneumonia, pleural effusion, atelectasis, and recent cervical neck surgery. PLAN: As noted, the patient is a DNR per the family's wishes. Comfort care. Job ID: [id number]
[2018-06-06] MEDS: Sodium Chloride 0.9% 1,000 ML IV SCH (12:13)
[2018-06-06] MEDS: Cefepime 1 GM in Sodium Chloride 0.9% 100 ML IVPB SCH (12:15)
[2018-06-06] MEDS ORDERED: Acetaminophen 650 MG Suppository PR PRN (14:45)
[2018-06-06] MEDS: Lorazepam 2 MG/ML VIAL SLOW IVP PRN ×2 (16:48→19:11)
[2018-06-06 21:01] VITALS: BP 101/64
--- NOTE | 2018-06-07 10:55 | PDOC.EVN ---
Event Note - Event Note Event Note: summary/DC SUMMARY #[id number]
--- NOTE | 2018-06-07 14:49 | DIS ---
DATE OF ADMISSION: 06/05/2018 DATE OF DISCHARGE: 06/07/2018 SUMMARY DATE OF : 06/07/2018. ADMITTING DIAGNOSES: Respiratory failure, hypercarbia, altered mental status, bradycardia, obesity, hypertension, hypoxia, Lesia granulomatosis. DISCHARGE DIAGNOSES AND CAUSE OF : Cardiac arrest, respiratory failure, as well as hypercarbia, altered mental status, bradycardia, obesity, hypertension, hypoxia, Lesia granulomatosis. HOSPITAL COURSE: This 67-year-old male, who was admitted to Internal Medicine Team followed also closely by Pulmonary Team to the ICU floor, was found to have severe significant decompensation in his respiratory status. The patient had significant hypercarbia ranging in the range of 80s on the pO2, however, pH was normal. Testifying of this might be a chronic condition. The patient had positive immune titers for antiproteinase 3 levels 51, normal being 0 to 3, suspicious for Lesia granulomatosis. The patient did have bilateral lobe consolidations, possible suspicious for inflammatory disorder. The patient did not have a white count nor did he have any fevers, however, was covered with antibiotics. The patient had severe significant rapid decline over the course of 24 hours. The patient's [id number], who was the nurse stated that the patient did have recurrent decline over the last 6 months. After long discussions with her, as well as the rest of her family, it was concluded that there was really no good prognosis and outcome from this matter. Family themselves suggested to place the patient on hospice. All arrangements were made. Unfortunately, the patient could not get to the location of hospice and on June 07, 2018 at 12:38 a.m. I was not present during the pronunciation. Per documentation nurse at bedside, did all the appropriate measures to confirm the patient passing away. Nurse also informed the family of all updates and the patient was pronounced at that point in time. Job ID: [id number]
--- NOTE | 2018-06-07 23:02 | CON ---
DATE OF CONSULTATION: 06/05/2018 HISTORY OF PRESENT ILLNESS: Hadley Vasquez is a 67-year-old gentleman with a very complicated medical history, who came to the MICU at about 35-40 agonal respirations, off his BiPAP, which he apparently was in the ER as per the nurse transferred him up, unresponsive, obtunded. He was given some atropine for bradycardic episode in the ER. There are several members at the bedside including the patient's , the patient's son, the patient's [id number] who is apparently a nurse. She gives extensive and well-outlined history that Mr. Vasquez has been in and out of the hospital for over a month starting in April. He was found to have a cervical radiculopathy, underwent anterior cervical diskectomy and fusion. He had global weakness, respiratory failure at that time resolved, UTI, hypertension, hyponatremia, decubitus ulcers. He also had diastolic dysfunction. He was seen by several different physicians. He has apparently since his discharge from the hospital, 06/02/2018, today is 06/05, presented with ongoing respiratory distress and shortness of breath. His sats were 92% in the [facility]. Apparently, he was on noninvasive ventilation, unclear what has transpired, but apparently the family now personally spoke to several different members. They all have decided to make him a DNR. As noted, he was given one dose of atropine on the way up here. Clearly, we were unable to get any history. Clearly, he has had agonal respirations, breathing almost 40 times a minute; pulse is 130; blood pressure 140/80. He is on 100% nonrebreather with sats of 92%. PAST MEDICAL HISTORY: Extensive past medical history is outlined; diastolic dysfunction, cervical myelopathy, BPH, anemia, dyslipidemia, hyponatremia, hyperkalemia. He is being considered by several different physicians for weakness, thought to be myelopathy. He is seen by Pulmonary, Dr. Watkins in our office while he is in the MICU . PAST SURGICAL HISTORY: Previous other surgeries have included leg fracture surgery and back surgery along with the recent cervical surgery. MEDICATIONS: Discharge medications have included: 1. Flomax 0.4. 2. Protonix 40. 3. Cozaar 100. 4. DuoNeb. 5. ibuprofen. 6. Amaryl 2. 7. Lasix 40. 8. Calcium. 9. Aspirin. 10. Norvasc 10. 11. Xanax p.r.n. ALLERGIES: NONE. REVIEW OF SYSTEMS: Unobtainable. PHYSICAL EXAMINATION: VITAL SIGNS: As noted, he has clearly agonal respirations with a respiratory rate of 40, pulse 130, blood pressure 140/80. HEENT: Pupils are equal. He is flaccid all over. NECK: Hyperflexed. CHEST: Decreased breath sounds. Sinus tachycardia. ABDOMEN: Distended. Soft. EXTREMITIES: No edema. NEUROLOGIC: Unresponsive. LABORATORY DATA: His pO2 is 69, pCO2 is 73, pH is 7.35 on a BiPAP. His initial blood gases showed a pO2 of 49, pCO2 of 84, pH of 7.36 on 3 L nasal O2. His white count is 7000, H and H are 10 and 32, platelet count 331. Chemistries were normal except for sodium 132. Liver function was normal. IMAGING STUDIES: His x-ray shows evidence of bilateral lower lung infiltrates, atelectasis. Otherwise, CT chest did not show any PE. Emergent CT abdomen was done, which showed no intra-abdominal process. IMPRESSION: 1. Acute on chronic respiratory failure, marked respiratory acidosis. 2. Bilateral bronchopneumonia. 3. Severe deconditioning. 4. Recent hospitalization for cervical disk problems. 5. Apparently hyponatremia. 6. Global weakness. PLAN: Multiple times discussed with family members, , [id number], son. They all wanted to make him a DNR, in fact they did not want even a noninvasive ventilation. I did not even start with antibiotics and treatments. They want comfort care. Discussed with the nurses on the MICU. They will call the attending physician and notify about their treatment plan. 45-minute of critical time. Job ID: [id number]
--- NOTE | 2018-06-10 12:24 | PQF ---
[employer] Crystal Reports Winform ViewerFRANCISCO JAVIER MITCHELL ROHAN [id number] [place] [id number] CLINICAL DOCUMENTATION CLARIFICATION FORM: POST DISCHARGE Addendum to original discharge summary date: ____ Late entry note date: __ Please exercise your independent, professional judgment in responding to the clarification form. Clinical indicators are provided on the bottom of this form for your review Please check appropriate box(s): HEART FAILURE: A. TYPE: [ ] Systolic / HFrEF [ ] Diastolic / HFpEF [ ] Combined Systolic / Diastolic B. ACUITY [ ] Acute [ ] Acute on Chronic [ ] Chronic [ ] Other diagnosis [ ] Unable to determine In addition, please specify: Present on Admission (POA): [ ] Yes [ ] No [ ] Unable to determine For continuity of documentation, please document condition throughout progress notes and discharge summary. Thank You. CLINICAL INDICATORS - SIGNS / SYMPTOMS / LABS CHF- ED HYPOXIA- H&P, D/S PLEURAL EFFUSION- PN 06/06 DIASTOLIC DYSFUNCTION- CONSULT RISKS: Hypertension- H&P, D/S, PROGRESS NOTES TREATMENTS: ON HOME FUROSEMIDE- ED [employer] Win[employer] Viewer (This form is maintained as a part of the permanent medical record) 2014 [employer]. All Rights Reserved [email or web address] [phone] [email or web address]
--- NOTE | 2018-06-13 10:42 | EKG ---
Test Reason : SOB Blood Pressure : / mmHG Vent. Rate : 108 BPM Atrial Rate : 108 BPM P-R Int : 214 ms QRS Dur : 056 ms QT Int : 322 ms P-R-T Axes : -03 -38 -15 degrees QTc Int : 431 ms Sinus tachycardia with 1st degree A-V block with Premature ventricular complexes or Fusion complexes Left axis deviation Moderate voltage criteria for LVH, may be normal variant Inferior infarct , age undetermined Anterolateral infarct , age undetermined Abnormal ECG Baseline Artifact Present Confirmed by ENID COLÓN DO ([id number]), commercial production editor TO GIBBS ([id number]) on 06/13/2018 10:41:53 AM Referred By: Confirmed By:ENID COLÓN DO
== END 2018-06-07 02:28 | disposition expired | DRG 542 ==
LOC: ERS 07:38 → ERHOLD 10:28 → IMCU/EMU 17:23 → OBSVTOIN 17:59
PROVIDERS: ADMIT Internal Medicine; ATTEND Internal Medicine
PROC: 5A09357 Assistance with Respiratory Ventilation, Less than 24 Consecutive Hours, Continuous Positive Airway Pressure (ICD-10-PCS; principal; 2018-06-05)
DX: M31.30 Wegener's granulomatosis without renal involvement (principal); J18.9 Pneumonia, unspecified organism; J96.21 Acute and chronic respiratory failure with hypoxia; J96.92 Respiratory failure, unspecified with hypercapnia; J90 Pleural effusion, not elsewhere classified; E87.4 Mixed disorder of acid-base balance; E87.3 Alkalosis; J98.11 Atelectasis; E11.9 Type 2 diabetes mellitus without complications; E66.9 Obesity, unspecified; Z68.32 Body mass index [BMI] 32.0-32.9, adult; Z66 Do not resuscitate; I46.9 Cardiac arrest, cause unspecified; N40.0 Benign prostatic hyperplasia without lower urinary tract symptoms; K21.9 Gastro-esophageal reflux disease without esophagitis; E78.5 Hyperlipidemia, unspecified; D64.9 Anemia, unspecified; F41.9 Anxiety disorder, unspecified; I11.0 Hypertensive heart disease with heart failure; I50.9 Heart failure, unspecified; R33.9 Retention of urine, unspecified; Z51.5 Encounter for palliative care; R00.1 Bradycardia, unspecified; N40.1 Benign prostatic hyperplasia with lower urinary tract symptoms; R33.8 Other retention of urine
CPT/HCPCS: 36415; 36416; 71045; 71275; 74177; 80048; 82140; 82805; 83516; 85025; 87040; 93005; 93306; 94660; 96361; 96365; 96366; 96367; 96375; J0461; J0692; J1940; J1956; J2060; J2270; J2543; J2920; J3370; J7050; J7620